=== PATIENT | male | born 1960 | race Caucasian/White ===

== ENCOUNTER 2022-10-16 13:57 | Emergency (ER) | payer OTHER, SELFPAY ==
[2022-10-16 14:01] VITALS: BP 167/104; PULSE 78; RESP 14; TEMP 36.6; O2SAT 96
[2022-10-16 14:25] VITALS: BMI 28.0
--- NOTE | 2022-10-16 14:31 | ED.VIS.LOWEX ---
HPI History of Present Illness Chief Complaint: Lower Extremity Injury Detail of Chief Complaint: Injury to right lower extremity Informant: patient Narrative Narrative: Patient presents to the emergency department after a fall off of a ladder was about 10 feet up on an overhang. Patient had some sort of a large saw when he was trying to hang and when he fell this saw hit his right lower extremity. Patient denies striking his head or loss of consciousness. He denies neck pain. Denies chest pain or abdominal pain. He was unable to bear weight on his right foot. Patient not on blood thinners. No significant medical history. PFSH PFSH Home Medications NK 10/16/22 [History Last Taken Unknown] Allergy/AdvReac Type Severity Reaction Status Date / Time Penicillins [PCN] Allergy Other Verified 10/16/22 14:00 Gadolinium-MRI Contrast AdvReac Nausea/Vom/ Verified 10/16/22 14:01 Medium Diarrhea [CONTRAST] Sulfa (Sulfonamide AdvReac Nausea/Vom/ Verified 10/16/22 14:01 Antibiotics) Diarrhea Surgical History (Updated 10/16/22 @ 14:28 by Tess Ramirez) History of appendectomy Social History Smoking Status: Never smoker ROS ROS ED Review of Systems ROS Unobtainable: other Constitutional Constitutional ED: Reports lethargy; Denies chills, fever(s), sweats or weight loss Eyes Eyes: Denies blurry vision, change in vision or diplopia ENT ENT ED: Denies rhinorrhea or sore throat Cardiovascular Cardiovascular: Denies chest pain, orthopnea or racing heartbeat Respiratory/Chest Respiratory/Chest: Denies cough, dyspnea, dyspnea on exertion, orthopnea or sputum Gastrointestinal Gastrointestinal: Denies abdominal pain, diarrhea, nausea or vomiting Genitourinary Genitourinary ED: Denies dysuria, hematuria or urinary frequency Musculoskeletal Musculoskeletal: Reports other Details: Right foot pain and right leg pain ; Denies arthralgias, back pain, myalgias or neck pain Integumentary Denies abscess, Abrasions or rash Neurologic Neurologic: Denies headache(s) or weakness Psychiatric Psychiatric: Denies anxiety, depression or suicidal thoughts Endocrine Endocrinology: Denies polydipsia, polyphagia or polyuria Hematologic/Lymphatic Hematologic/Lymphatic: Denies easy bleeding, easy bruising or lymphadenopathy Allergic/Immunologic Allergic/Immunologic ED: Denies mouth swelling, tongue swelling or urticaria EXAM Physical Exam Const Vital Signs: 10/16/22 14:01 Temperature 98 F Temperature Source Temporal Pulse Rate 78 Respiratory Rate 14 Blood Pressure 167/104 H Blood Pressure Mean 125 Pulse Ox 96 Oxygen Delivery Method Room Air Positive well nourished and well developed General Appearance ED: well developed and NAD HEENT Reports TM's clear and moist mucous membranes normocephalic and atraumatic; Negative for trauma or tenderness Tympanic Membrane ED: Yes TM's clear Eyes PERRL and EOMs intact bilaterally General Eye ED: Negative for pale conjunctiva or scleral icterus Neck no lymphadenopathy, supple and no JVD General: Negative for tenderness Chest Wall inspection of chest normal and palpation of chest normal Chest: Negative for tenderness Resp normal respiratory effort and clear to auscultation bilaterally Effort and Inspection: Negative for respiratory distress or pain with movement Auscultation: Negative for rhonchi, wheezes or diminished lung sounds Cardio regular rate, regular rhythm, S1 normal heart sound, S2 normal heart sound and no murmurs Peripheral Pulses: pulses 2+ throughout GI normal to inspection, nondistended, normoactive bowel sounds, soft to palpation, non-tender, non-distended and no masses Back/Spine no CVA tenderness and no thoracic nor lumbar tenderness Back/Spine Narrative: Patient has an abrasion to the right posterior ribs with no bony tenderness on exam. Extremity Extremity Narrative: Right lower extremity-patient has superficial abrasions to the anterior aspect of the right knee as well as tibia. He has some diffuse tenderness to palpation over the foot especially plantar midfoot. No obvious deformity. Neurovascular intact distally General Extremety ED: Negative for edema General Extremity: Negative for edema Neuro oriented x3, CN's II-XII intact bilaterally, no sensory deficits noted and gait normal Sensorium / Orientation: awake, alert, oriented to person, oriented to place and oriented to time Motor Exam: strength 5/5 throughout and strength abnormal Psych mental status grossly normal Skin no rashes or lesions noted and no wounds MDM MDM MDM Narrative Medical decision making narrative: Patient presents with an injury to his right lower extremity after fall off of the ladder. No other significant evidence of trauma. C-spine cleared clinically using Nexus criteria. Patient x-rays on my interpretation do not reveal any fractures. He will be given crutches for comfort. He will be given an Seng wrap for his foot. Patient will be referred to orthopedics for follow-up within the next 5 to 7 days. He is to use ibuprofen or Tylenol for discomfort. He is to ice and elevate the extremity. He was given a tetanus booster. Radiography Diagnostic Testing: Clinical Impression(s) from Imaging Studies Foot X-Ray 10/16/22 14:40 IMPRESSION: Normal x-ray examination of the foot. Electronically Signed: Mack Herrera MD at 15:07 EDT , Tibia/Fibula X-Ray 10/16/22 14:40 IMPRESSION: Normal x-ray examination of the tibia and fibula. Electronically Signed: Mack Herrera MD at 15:08 EDT , 2 view x-rays of the right tib-fib obtained interpreted by myself as no acute fractures. Official report from radiology pending. Three-view x-rays right foot obtained interpreted by myself as no acute fractures or dislocations. Official report from radiology pending. Radiologist agreed with my interpretation. Discharge Plan Triage Chief Complaint: Lower Extremity Injury ED Provider: Marisa Villanueva Dx/Rx/DC Orders Clinical Impression: Right foot sprain, Contusion of leg, right, Abrasion Instructions: Bruises (Contusions), ED Abrasion, ED Foot Sprain Prescriptions: No Action NK Primary Care Provider: SUNSHINE SOLANO Referrals: Sincere Rojas MD [Med Staff - Active Staff] - 5-7 Days Ford Olson MD [Med Staff - Active Staff] - 5-7 Days Disposition Disposition: Home, Self Care
--- NOTE | 2022-10-16 14:40 | RAD_ITS ---
STUDY: X-RAY - RIGHT TIBIA AND FIBULA REASON FOR EXAM: Male, 62 years old. Pain following a fall. TECHNIQUE: 3 view(s) of the tibia and fibula were obtained. COMPARISON: None. FINDINGS: Normal visualized tibia. Normal visualized fibula. The soft tissue structures are unremarkable. RAD/Tibia & Fibula 2 Views IMPRESSION: Normal x-ray examination of the tibia and fibula. Electronically Signed: Mack Herrera MD at 15:08 EDT ,
--- NOTE | 2022-10-16 14:40 | RAD_ITS ---
STUDY: X-RAY - RIGHT FOOT CLINICAL: Male, 62 years old. Pain following a fall. TECHNIQUE: 3 view(s) of the foot. COMPARISON: None. FINDINGS: Normal talus, calcaneus, and tarsal bones. Normal visualized subtalar, talonavicular, calcaneocuboid, tarsal and tarsometatarsal articulations. Normal metatarsi. Normal metatarsophalangeal joint of the great toe. Normal tibial and fibular sesamoid bones. Normal interphalangeal joint of the great toe. Normal phalanges of the great toe. Normal second through fifth metatarsophalangeal joints. Normal interphalangeal joints and phalanges of the lesser toes. The soft tissue structures are unremarkable. RAD/Foot min 3 Views IMPRESSION: Normal x-ray examination of the foot. Electronically Signed: Mack Herrera MD at 15:07 EDT ,
[2022-10-16] MEDS: Diphth,Pertuss(Acell),Tet Vac 0.5 ML Vial IM (14:45)
== END 2022-10-16 15:25 | disposition home or self-care (01) ==
LOC: ED 15:09
PROVIDERS: Emergency Provider Emergency Medicine; Visit Provider Emergency Medicine
DX: S80.811A Abrasion, right lower leg, initial encounter (principal); S80.11XA Contusion of right lower leg, initial encounter; W11.XXXA Fall on and from ladder, initial encounter; S93.601A Unspecified sprain of right foot, initial encounter; Z90.49 Acquired absence of other specified parts of digestive tract; W22.8XXA Striking against or struck by other objects, initial encounter
CPT/HCPCS: 73590; 73630; 90715; 99283

== ENCOUNTER → 2023-08-29 | Outpatient (CLI) | payer OTHER, SELFPAY ==
[2023-08-29 10:36] LABS: Hematocrit 41.5 % (40-54); Hemoglobin 14.6 g/dL (13.0-16.5); Mean Corp Hgb Conc 35.2 g/dL (32-36); Mean Corpuscular Hgb 32.2 pg (27.0-32.0); Mean Corpuscular Volume 91.6 fL (80-94); Mean Platelet Vol. 10.4 fl (6.2-12.0); Platelet Count 189 K/mm3 (150-450); RBC Distribution Width CV 11.9 % (11.6-14.6); RBC Distribution Width SD 39.9 fl (35.1-43.9); Red Blood Count 4.53 M/mm3 (4.6-6.2); White Blood Count 5.8 K/mm3 (4.4-11.0)
[2023-08-29 10:58] LABS: ALB/GLOB Ratio 1.2 RATIO (0.9-2.4); AST(SGOT) 21 U/L (15-37); Alanine Aminotransfer ALT/SGPT 46 U/L (16-61); Alkaline Phosphatase 69 U/L (45-117); Anion Gap 5 (5-15); BUN 16 mg/dL (7-18); BUN/Creat Ratio 16.8 RATIO (10-20); Chloride 107 mmol/L (98-107); Cholesterol 220 mg/dL (200); Creatinine, Serum 0.95 mg/dL (0.70-1.30); EST Glomerular Filtration Rate 85 mL/min (>60); Est Glom Filt Rate - Afr Amer 103 mL/min (>60); Globulin 3.2 g/dL (2.2-4.2); Glucose 103 mg/dL (74-106); High Density Lipoprotein 43 mg/dL; PSA,Total - Annual Screen 1.29 ng/mL (0.00-4.00); Potassium 3.8 mmol/L (3.5-5.1); Protein, Total 7.2 g/dL (6.4-8.2); Sodium Level 140 mmol/L (136-145); Triglycerides 102 mg/dL; Very Low Density Lipoprotein 20 mg/dL (5-40)
== END | disposition home or self-care (01) ==
PROVIDERS: PCP Family Medicine; Referring Provider Family Medicine; Visit Provider Family Medicine
DX: E29.1 Testicular hypofunction (principal); Z12.5 Encounter for screening for malignant neoplasm of prostate
CPT/HCPCS: 36415; 80053; 80061; 84153; 84403; 85027; G0103

== ENCOUNTER → 2023-12-22 | Outpatient (CLI) | payer OTHER, SELFPAY ==
[2023-12-22 08:32] LABS: Absolute Lymphocyte Count 2.94 X10^3/uL (0.83-4.51); Absolute Neutrophil Count 5.7 X10^3/uL (2.0-7.7); Basophil# 0.06 X10^3/uL; Basophil% 0.6 % (0-1); Eosinophil# 0.11 X10^3/uL; Eosinophils% 1.2 % (0-5); Hematocrit 41.3 % (40-54); Hemoglobin 14.2 g/dL (13.0-16.5); Lymphocyte # 2.94 X10^3/ul (0.83-4.51); Lymphocyte % 30.8 % (19-41); Mean Corp Hgb Conc 34.4 g/dL (32-36); Mean Corpuscular Hgb 31.4 pg (27.0-32.0); Mean Corpuscular Volume 91.4 fL (80-94); Mean Platelet Vol. 10.1 fl (6.2-12.0); Monocyte# 0.63 X10^3/uL; Monocyte% 6.6 % (0-10); NRBC Flagged by Analyzer 0 % (0-5); Neutrophil # 5.73 X10^3/uL (2.7-7.7); Platelet Count 209 K/mm3 (150-450); RBC Distribution Width CV 12.1 % (11.6-14.6); RBC Distribution Width SD 40.3 fl (35.1-43.9); Red Blood Count 4.52 M/mm3 (4.6-6.2); White Blood Count 9.6 K/mm3 (4.4-11.0)
[2023-12-22 08:54] LABS: Erythrocyte Sedimentation Rate 6 mm/hr (0-20)
[2023-12-22 10:29] LABS: Hemoglobin A1c 5.4 % (3.8-5.6)
[2023-12-22 10:46] LABS: ALB/GLOB Ratio 1.1 RATIO (0.9-2.4); AST(SGOT) 13 U/L (15-37); Alanine Aminotransfer ALT/SGPT 35 U/L (16-61); Albumin, Serum 3.6 g/dL (3.2-5.0); Alkaline Phosphatase 63 U/L (45-117); Anion Gap 5 (5-15); BUN 19 mg/dL (7-18); BUN/Creat Ratio 20.8 RATIO (10-20); CRP < 2.90 mg/L (0.0-3.0); Calcium,Total 8.9 mg/dL (8.5-10.1); Chloride 106 mmol/L (98-107); Cholesterol 183 mg/dL (200); Creatinine, Serum 0.92 mg/dL (0.70-1.30); EST Glomerular Filtration Rate 89 mL/min (>60); Est Glom Filt Rate - Afr Amer 107 mL/min (>60); Globulin 3.2 g/dL (2.2-4.2); Glucose 86 mg/dL (74-106); High Density Lipoprotein 59 mg/dL; Potassium 3.6 mmol/L (3.5-5.1); Protein, Total 6.8 g/dL (6.4-8.2); Rheumatoid Factor < 10.0 IU/mL (<15); Sodium Level 138 mmol/L (136-145); Triglycerides 62 mg/dL; Very Low Density Lipoprotein 12 mg/dL (5-40)
[2023-12-25 11:59] LABS: ANTINUCLEAR ANTIBODIES DIRECT Negative (Negative); CCP IgG Antibodies 4 units (0-19); Dilute Prothrombin Time (dPT) 35.2 sec (0.0-47.6); Dilute Russell Viper Venom 36.9 sec (0.0-47.0); Interpretation Comment: (.); PTT-LA 33.3 sec (0.0-43.5); Thrombin Time 19.6 sec (0.0-23.0); dPT Confirm Ratio 1.05 Ratio (0.00-1.34)
== END | disposition home or self-care (01) ==
LOC: LAB 07:19
PROVIDERS: PCP Nurse Practitioner; Referring Provider Nurse Practitioner; Visit Provider Nurse Practitioner
DX: Z00.00 Encounter for general adult medical examination without abnormal findings (principal); M25.50 Pain in unspecified joint
CPT/HCPCS: 36415; 80053; 80061; 83036; 85025; 85652; 86038; 86140; 86200; 86225; 86235; 86431

== ENCOUNTER → 2023-12-24 | Outpatient (CLI) | payer OTHER, SELFPAY ==
--- NOTE | 2023-12-24 13:43 | RAD_ITS ---
EXAM: XR LUMBOSACRAL SPINE, 2 OR 3 VIEWS CLINICAL INDICATION: lumbar back pain TECHNIQUE: Frontal and lateral views of the lumbar spine and sacrum. COMPARISON: No relevant prior studies available. FINDINGS: VERTEBRAE: There is bony neural foraminal narrowing at L3-4 and L4-5. Preserved vertebral body height. No fracture. No spondylolisthesis. Preservation of the normal lumbar lordosis. No significant facet arthropathy. DISC SPACES: There is disc space narrowing at L2-3 and L4-5. There are small anterior osteophytes. GASTROINTESTINAL TRACT: Unremarkable as visualized. Included bowel gas pattern is non-obstructive. RAD/Lumbar Spine 2 or 3 Views IMPRESSION: Multilevel degenerative change with disc space narrowing and bony neural foraminal narrowing. There are no acute osseous abnormalities. Electronically Signed: Tay Preciado MD at 0:00 EDT ,
== END | disposition home or self-care (01) ==
LOC: RAD 13:35
PROVIDERS: PCP Nurse Practitioner; Referring Provider Nurse Practitioner; Visit Provider Nurse Practitioner
DX: M54.50 Low back pain, unspecified (principal)
CPT/HCPCS: 72100

== ENCOUNTER 2024-01-08 17:30 | Outpatient (RCR) | payer OTHER, SELFPAY ==
--- NOTE | 2023-12-25 13:52 | HP.PTEVAL_ITS ---
Patient's Visit Information Visit Information Visit Information: JOI BURTON Jr. is a 63 year old M referred to Physical Therapy by BRYCE Berg with a diagnosis of lumbar back pain.. Date of Evaluation: 12/25/23 Physical Therapist: Guanako Chilel, DPT, OCS, CSCS Visit Plan Frequency: 2-3x /Week Duration: 4-6 Weeks Plan: 2-3x/week for 4-6 weeks as needed for... 1. instruction in and oprogression of HS adn quad stretch to HEP quickly, can rolout quad and HS prior 2. LB ROM(yoag stretches aggressively and to HEP 3. core NS stab strength to gym and HEP all with pics, please focuss on getting him I with aggressive ROM, stretch and core strength Be aggressive. Subjective Subjective: Back hurts and has joint space narrowing and impingement. Hurts center adn right. no pareasthesia or numbness tingling. 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 been moving a lot of concrete on property and it hurts more. Pain has been there intermittent for years. last month and a half is worse , gave himself injections and again 5 days ago. Can' take narcotics. Talked to PCP and got x ray and has degeneration. Surgery is not in his realm and he does not want it. Overall 100% better for two days with injection and 50% better this time. Goes to gym everyday avoids squatting and deadlifting. Does [employer] fitness machines, webb for benching. Some free weight flyes. No core strength. Willing to learn core and stretching. pain 6/10 at worst and he is used to it. Pain LBP: Pain Intensity (Out of 10): 2 Pain Intensity Range: 2 and 6 Objective Objective: Walks into PT without antalgia or problems, sits with flexed lumbar posture losing his kyphosis. Has some tenderness R lower lumbar paraspinals into upper glut. Lumbar AROM R SB and extension cause some R LBP. mod to max deficits in ext nd R SB, min deficits without pain L SB, mod deficits in flexion, no pain. HS are max tight at -35 90/90 test B, - slump and - SLR. quad are also tight although he can lie flat without pain today. reflexes 1/3 patella and achilles sensation LE WNL to gross light touch in B LE. strength LE 5/5 without pain, core strength shows weakness with hip flexion opposite rotation at hip and instability pain in LB R. Overall problems include tightness in HS and quads, limted lumbar ROM and core weakness in stability. these areas are missing in his current program. Goals Goal 1:: I appropriate flexibility, back ROM(yoga) and core strength program to limit future problems. Goal Time Frame: 4-6 Weeks Goal 2:: LBP 1/10 at worst and intermittent, 75% better Goal Time Frame: 4-6 Weeks Goal 3:: golf without limitations from LB Goal Time Frame: 4-6 Weeks Rehabilitation Potential Physical Therapy Diagnosis: stiffness, tightness and weakness effecting com fortable function. Rehabilitation Potential: Good Anticipated Interventions Patient/Client Instruction: Educate patient on: Condition and Plan of Care For the Purpose of:: To decrease pain, To increase ROM, To improve nutrient delivery to tissue and To improve muscle performance and motor function Therapeutic Exercise to Include: Strength training, Flexibilty training, Passive ROM and Active ROM For the Purpose of:: To decrease pain, To increase ROM and To improve nutrient delivery to tissue Manual Therapy Techniques to Include: Soft tissue mobilization For the Purpose of:: To increase ROM, To improve nutrient delivery to tissue and To improve muscle performance and motor function Text: Thank you for the opportunity to evaluate your patient. For Medicare and Medicare HMO plans, please review the plan of care and approve it. It will need to be FAXED BACK to us at [phone] for Medicare purposes. For Medicare only, by signing this I certify the plan of care. Please let me know if there are questions or concerns regarding this plan of care. Physician Signature: Date:
--- NOTE | 2024-02-21 12:22 | HP.PT.NRP ---
Patient Information Patient Information: JOI BURTON Jr. was seen in my office for initial evaluation on 12/25/23. The following Plan of Care was established for this patient: POC Established Initial Frequency: 2-3x /Week Initial Duration: 4-6 Weeks Anticipated Interventions Patient/Client Instruction: Educate patient on: Condition and Plan of Care For the Purpose of:: To decrease pain, To increase ROM, To improve nutrient delivery to tissue and To improve muscle performance and motor function Therapeutic Exercise to Include: Strength training, Flexibilty training, Passive ROM and Active ROM For the Purpose of:: To decrease pain, To increase ROM and To improve nutrient delivery to tissue Manual Therapy Techniques to Include: Soft tissue mobilization For the Purpose of:: To increase ROM, To improve nutrient delivery to tissue and To improve muscle performance and motor function Last Seen Last Seen: This patient was last seen in our office 01/03/24. Pertinent comments regarding their Physical therapy will appear below: Pt seen 4 visits of his POC and then cancelled and no showed the next couple without rescheduling. At this point, it has been over 6 weeks since attendance and I will discontinue. At this point I will be discontinuing this patient from physical therapy. I would be happy to see this patient again in the future if found appropriate by the physician. Thank you! Guanako Chilel, DPT, OCS, CSCS
== END 2024-01-15 19:00 | disposition home or self-care (01) ==
LOC: PT 17:30
PROVIDERS: PCP Nurse Practitioner; Visit Provider Nurse Practitioner
DX: M54.50 Low back pain, unspecified (principal)
CPT/HCPCS: 97110; 97140; 97161

== ENCOUNTER → 2024-04-08 | Outpatient (CLI) | payer OTHER, SELFPAY ==
--- NOTE | 2024-04-08 09:55 | RAD_ITS ---
STUDY: X-RAY - RIGHT SHOULDER REASON FOR EXAM: Male, 64 years old. Pain. TECHNIQUE: 4 views of the right shoulder. COMPARISON: None. FINDINGS: There is moderate glenohumeral arthrosis with joint space narrowing and marginal osteophyte formation. There is minimal acromioclavicular arthrosis. Normal acromion. Intact humeral head and visualized proximal humerus. The soft tissue structures are unremarkable. There is no demonstrated fracture. Normal visualized pulmonary apex. RAD/Shoulder min 2 Views IMPRESSION: Moderate glenohumeral arthrosis. Minimal acromioclavicular arthrosis. No demonstrated fracture. Electronically Signed: Tristian Weiss MD at 16:00 EST ,
== END | disposition home or self-care (01) ==
LOC: RAD 09:51
PROVIDERS: PCP Nurse Practitioner; Referring Provider Physician Assistant; Visit Provider Physician Assistant
DX: M25.511 Pain in right shoulder (principal)
CPT/HCPCS: 73030

== ENCOUNTER → 2024-06-26 | Outpatient (CLI) | payer OTHER, SELFPAY ==
[2024-06-26 16:46] LABS: Absolute Lymphocyte Count 2.24 X10^3/uL (0.83-4.51); Basophil# 0.09 X10^3/uL; Basophil% 0.9 % (0-1); Eosinophil# 0.43 X10^3/uL; Eosinophils% 4.5 % (0-5); Hematocrit 44.3 % (40-54); Hemoglobin 15.7 g/dL (13.0-16.5); Lymphocyte # 2.24 X10^3/ul (0.83-4.51); Lymphocyte % 23.3 % (19-41); Mean Corp Hgb Conc 35.4 g/dL (32-36); Mean Corpuscular Hgb 32.7 pg (27.0-32.0); Mean Corpuscular Volume 92.3 fL (80-94); Mean Platelet Vol. 10.1 fl (6.2-12.0); Monocyte# 0.71 X10^3/uL; Monocyte% 7.4 % (0-10); NRBC Flagged by Analyzer 0 % (0-5); Neutrophil # 6.01 X10^3/uL (2.7-7.7); Neutrophil % 62.6 % (47-70); Platelet Count 227 K/mm3 (150-450); White Blood Count 9.6 K/mm3 (4.4-11.0)
== END | disposition home or self-care (01) ==
LOC: BIMLAB 15:56
PROVIDERS: PCP Internal Medicine; Referring Provider Internal Medicine; Visit Provider Internal Medicine
DX: E29.1 Testicular hypofunction (principal)
CPT/HCPCS: 36415; 85025

== ENCOUNTER → 2024-12-29 | Outpatient (CLI) | payer OTHER, SELFPAY ==
[2024-12-29 09:05] LABS: Hematocrit 44.6 % (40-54); Hemoglobin 16.1 g/dL (13.0-16.5); Immature Granulocytes Count 0.020 X10^3/uL (0.0-0.0); Mean Corp Hgb Conc 36.1 g/dL (32-36); Mean Corpuscular Volume 90.8 fL (80-94); Mean Platelet Vol. 10.1 fl (6.2-12.0); NRBC Flagged by Analyzer 0 % (0-5); Platelet Count 203 K/mm3 (150-450); RBC Distribution Width CV 12.2 % (11.6-14.6); RBC Distribution Width SD 40.6 fl (35.1-43.9); Red Blood Count 4.91 M/mm3 (4.6-6.2); White Blood Count 6.7 K/mm3 (4.4-11.0)
[2024-12-29 09:41] LABS: AST(SGOT) 28 U/L (<=37); Alanine Aminotransfer ALT/SGPT 32 U/L (<=46); Albumin, Serum 4.6 g/dL (3.4-4.8); Alkaline Phosphatase 79 U/L (40-129); Anion Gap 13 (5-15); BUN 14 mg/dL (4-19); BUN/Creat Ratio 12.7 RATIO (10-20); Calcium,Total 9.8 mg/dL (7.6-11.0); Carbon Dioxide 22.7 mmol/L (21.0-32.0); Chloride 104 mmol/L (98-108); Cholesterol 235 mg/dL (<=200); Globulin 2.9 g/dL (2.2-4.2); Glucose 105 mg/dL (70-99); Low Density Lipoprotein Calc. 156 mg/dL; PSA,Total - Annual Screen 1.45 ng/mL (0.02-4.00); Potassium 4.0 mmol/L (3.3-5.1); Triglycerides 133 mg/dL; Very Low Density Lipoprotein 27 mg/dL (5-40); cholesterol:hdl ratio screen 4.44
--- OUTSIDE RECORDS SUMMARY | 2024-12-29 10:34 | XMS RPT_ITS | CCD ---
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 Sunshine Damico Referring Unavailabl e Thomae, Dr. Kiki Chase Admitting Unavailable Thomae, Dr. Kiki Chase Attending Unavailable [place], Mrs. Sunshine Damioc Primary Care Unavailabl e MEZU, HELADIO DARLING Consulting Unavailable DHAVAL PAGE Attending Unavailable DHAVAL PAGE Admitting Unavailable Kinza Abreu MD Primary Care Provider RUSS, SUNSHINE Chiang Attending Unavailable RUSS, SUNSHINE Chiang Primary Care Unavailable KINZA ABREU Attending Unavailable KINZA ABREU Primary Care Unavailable SUNSHINE SOLANO Attending Unavailable SUNSHINE SOLANO Primary Care Unavailable RUSSSUNSHINE Referring Unavailable RUSSSUNSHINE Attending Unavailable RUSSSUNSHINE Primary Care Unavailable Julita Reyes MD Primary Care Provider ROBE JACKSON Attending Unavailable SELF Referring Unavailable JULITA REYES Primary Care Unavailable Gumaro Ordoñez Attending Provider [phone] Eric MENSAH, Dr. Schliling Primary Care Provider Dr. Julita Reyes MD Referring Provider Vijaya Barraza Primary Care Unavailable Vijaya Barraza Attending Unavailable Vijaya Barraza Referring Unavailable Shannono Vijaya Primary Care Unavailable Ferullo, Vijaya Attending Unavailable Ferullo, Vijaya Referring Unavailable Ferullo, Vijaya Primary Care Unavailable Gumaro Ordoñez Attending Unavailable Ferullo, Vijaya Referring Unavailable Brock Marrero Attending Unavailable Ferullo, Vijaya Referring Unavailable Ferullo, Vijaya Primary Care Unavailable Oleghe, Efewongbe Attending Unavailable Ferullo, Vijaya Referring Unavailable Ferullo, Vijaya Primary Care Unavailable Ferullo, Vijaya Attending Unavailable Ferullo, Vijyaa Primary Care Unavailable Gumaro Ordoñez Attending Unavailable Gumaro Ordoñez Referring Unavailable LillieBill tsai Referring Unavailable Oleghe, Efewongbe Primary Care Unavailable LillieHu tsaiin Attending Unavailable Oleghe, Efewongbe Primary Care Unavailable Oleghe, Efewongbe Attending Unavailable Oleghe, Efewongbe Referring Unavailable WayGumaro Espinosa Attending Unavailable Oleghe, Efewongbe Primary Care Unavailable Oleghe, Efewongbe Referring Unavailable Ferullo, Vijaya Primary Care Unavailable Kinza Terry Attending Unavailable Allergies Allergy Classification Reported Allergen(s) Allergy Type Date of Onset Reaction(s) Facility (9 sources) Penicillins; Translations: [PENICILLINS] Propensity to adverse reactions 3 Unknown [facility] (12 sources) Sulfonamides (Antibiotic); Translations: [SULFA (SULFONAMIDE ANTIBIOTICS)] Propensity to adverse reactions 3 Shortness of breath, Nausea And Vomiting, GI Upset [facility] Work Phone: (3 sources) Penicillins Allergy to substance 3 Other [facility] Comment on above: FAMILY HX (3 sources) Sulfonamides (Antibiotic) Propensity to adverse reactions 3 Nausea/Vom/[facility] (3 sources) Gadolinium-MRI Contrast Medium Propensity to adverse reactions 3 Nausea/Vom/[facility] Comment on above: DYE (9 sources) Iodinated Contrast Media; Translations: [IODINATED CONTRAST MEDIA] Propensity to adverse reactions 3 Other, Nausea And Vomiting, GI Upset, Other: See Comments [facility] (3 sources) Penicillins Drug Intolerance 3 [facility] (1 source) Penicillins Drug allergy (disorder) 5 [facility] (1 source) Sulfonamides (Antibiotic) Drug allergy (disorder) 5 [facility] (1 source) Gadolinium-MRI Contrast Medium Drug allergy (disorder) 5 [facility] Medications Current Medications Medication Drug Class(es) Dates Sig (Normalized) Sig (Original) ascorbic acid 1000 mg oral tablet (8 sources) Vitamin C Ascorbic Acid 1, 000 mg tablet Take 1,000 mg by mouth. Active cholecalciferol 0.01 mg oral tablet (8 sources) Vitamin D cholecalciferol (VITAMIN D3) 400 unit tab Take by mouth once daily. Active collagenase clostridium histolyticum 0.9 mg injection (2 sources) Start: 10-18-2022 End: 08-06-2023 Xiaflex injection Inject 0.58 mg as directed every 30 (thirty) days. 0 10/18/2022 08/06/2023 Discontinued (Med List Cleanup) dutasteride 0.5 mg oral capsule (12 sources) 5-alpha Reductase Inhibitor Start: 06-02-2022 End: 07-30-2024 take 1 capsule by mouth once daily Dutasteride 0.5 mg capsule Active 0.5 mg PO DAILY 90 July 30, 2024 4:53pm 120 actuat fluticasone propionate 0.22 mg/actuat metered dose inhaler (4 sources) Corticosteroid Start: 08-06-2023 End: 08-05-2024 take 1 puff(s) by mouth twice daily fluticasone (Flovent HFA) 220 mcg/actuation inhaler Indications: Mild persistent asthma without complication Inhale 1 puff 2 times a day. Rinse mouth with water after use to reduce aftertaste and incidence of candidiasis. Do not swallow. 12 g 11 08/06/2023 08/05/2024 Active Fluticasone Propionate 220 mcg/actuation HFA aerosol inhaler (2 sources) Start: 11-05-2024 Fluticasone Propionate 220 mcg/actuation HFA aerosol inhaler Active 1 NMA INHALATION TWICE A DAY 12 November 05, 2024 4:07pm Start: 12-21-2023 End: 11-05-2024 Fluticasone Propionate 220 m cg/actuation HFA aerosol inhaler Discontinued 1 NMA INHALATION TWICE A DAY 12 December 21, 2023 12:00am November 05, 2024 4:07pm magnesium amino acid chelate 133 mg oral tablet (8 sources) magnesium oxide- magnesium amino acid chelate (NH-[id number]-HYXFANN) 133 mg tablet Take 133 mg by mouth. Active omeprazole 20 mg delayed release oral capsule (10 sources) Proton Pump Inhibitor Start: 02-20-20 End: 07-31-19 take 1 capsule by mouth twice daily Omeprazole 20 mg capsule,delayed release(DR/EC) Active 20 mg PO TWICE A DAY 180 July 30, 2024 4:53pm Start: 11-07-2022 take 1 capsule by mo uth twice daily Omeprazole 20 MG Oral Capsule Delayed Release Take 1 capsule twice daily Quantity: 180 Refills: 3 Ordered: 07-Nov-2022 Kiki Montiel DO Start : 07-Nov-2022 Active take 1 tablet by ben th twice daily omeprazole OTC (PriLOSEC OTC) 20 mg EC tablet Take 1 tablet (20 mg) by mouth 2 times a day. Do not crush, chew, or split. 0 Active tadalafil 5 mg oral tablet (12 sources) Phosphodiesterase 5 Inhibitor Start: 04-27-2023 End: 07-30-2024 take 1 tablet by mouth once daily Tadalafil (Cialis) 5 mg tablet Active 5 mg PO DAILY 90 July 30, 2024 4:53pm Start: 06-06-2022 End: 03-30-2023 take 1 tablet by mouth once daily tadalafil (Cialis) 5 mg tablet Take 1 tablet (5 mg) by mouth once daily. 0 06/06/2022 03/30/2023 Discontinued (Reorder) 1 ml testosterone cypionate 200 mg/ml injection (19 sources) Androgen Start: 2024 End: 11-07-2024 inject 200 mg by intramuscular injection every other week Testosterone Cypionate (Depo-Testosterone) 200 mg/mL oil Active 200 mg IM every 2 weeks 10 November 07, 2024 11:17am Hypogonadism hypogonadism Start: 12-20-2023 End: 12-24-2023 inject 200 mg by intramuscular injection every other week Testosterone Cypionate 200 mg/mL kit Discontinued 200 mg IM every 2 weeks 05 14December 24, 2023 9:21am December 24, 2023 12:15pm Start: 08-02-2022 End: 08-05-2024 testosterone cypionate (Depo-Testosterone) 200 mg/mL injection Indications: Hypogonadism in male , Hypotestosteronemia Inject 1 mL (200 mg) into the muscle every 14 (fourteen) days. 6 mL 1 08/06/2023 08/05/2024 Active Verapamil (5 sources) Calcium Channel Juan Francisco Start: 06-09-2022 End: 08-06-2023 verapamil HCl (VERAPAMIL, BULK, MISC) APPLY TO THE AFFECTED AREA(S) NEEDED 0 06/09/2022 08/06/2023 Discontinued (Med List Cleanup) Start: 06-09-2022 verapamil HCl (VERAPAMIL, BULK, MISC) APPLY TO THE AFFECTED AREA(S) NEEDED 0 06/09/2022 Active Completed/Discontinued Medications Medication Drug Class(es) Dates Sig (Normalized) Sig (Original) 24 hr metFORMIN hydrochloride 500 mg extended release oral tablet (9 sources) Biguanide Start: 09-14-2022 End: 12-26-2024 take 1 tablet by mouth once daily Metformin 500 mg tablet extended release 24 hr Discontinued 500 mg PO DAILY 90 July 30, 2024 4:53pm December 26, 2024 2:04pm Start: 06-02-2022 take 1 tablet by ben th once daily metFORMIN XR (Glucophage-XR) 500 mg 24 hr tablet Take 1 tablet (500 mg) by mouth once daily. 0 06/02/2022 Active tamsulosin hydrochloride 0.4 mg oral capsule (2 sources) alpha-Adrenergic Juan Francisco Start: 02-01-2024 End: 04-08-2024 take 1 capsule by mouth at bedtime Tamsulosin 0.4 mg capsule Discontinued 0.4 mg PO AT BEDTIME 90 February 01, 2024 12:00am April 08, 2024 9:58am Problems Active Problems Problem Classification Problem Date Documented Da te Episodic/Chronic Administrative/social admission (1 source) First encounter by subject; Translations: [Persons encountering health services in other specified circumstances] 12-20-2023 Episodic Allergic reactions (2 sources) Allergy status to penicillin; Translations: [Allergy to penicillin] Onset: 3 11-08-2022 Episodic Asthma (4 sources) Uncomplicated mild persistent asthma; Translations: [Mild persistent asthma, uncomplicated] Onset: 4 08-06-2023 Chronic Esophageal disorders (5 sources) Gastro-esophageal reflux disease without esophagitis; Translations: [Gastroesophageal reflux disease without esophagitis] Onset: 3 Chronic Esophageal disorders (1 source) Esophagitis; Translations: [Esophagitis, unspecified] Episodic Hyperplasia of prostate (1 source) Benign prostatic hyperplasia; Translations: [Benign prostatic hyperplasia without lower urinary tract symptoms] 06-26-2024 Chronic Malaise and fatigue (4 sources) Chronic fatigue, unspecified; Translations: [Chronic fatigue, unspecified] Onset: 3 Chronic Osteoarthritis (1 source) Osteoarthritis of joint of right shoulder region; Translations: [Primary osteoarthritis, right shoulder] 05-06-2024 Chronic Other aftercare (1 source) jail (current) use of oral hypoglycemic drugs; Translations: [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 drugs] Onset: 3 Episodic Other aftercare (1 source) Long-term current use of oral hypoglycemic medication; Translations: [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 drugs] 11-08-2022 Episodic Other and unspecified benign neoplasm (1 source) Benign neoplasm of middle ear, nasal cavity and accessory sinuses; Translations: [Inverted papilloma of nasal cavity] Onset: 5 Episodic Other connective tissue disease (1 source) Impingement syndrome of shoulder region; Translations: [Impingement syndrome of right shoulder] 04-08-2024 Episodic Other endocrine disorders (5 sources) Testicular hypofunction; Translations: [Testicular hypofunction] Onset: 3 Chronic Other endocrine disorders (3 sources) Male hypogonadism; Translations: [Testicular hypofunction] 08-06-2023 Chronic Other endocrine disorders (1 source) Hypogonadism 01-22-2024 Chronic Other endocrine disorders (4 sources) Endocrine disorder, unspecified; Translations: [Endocrine disorder, unspecified] Onset: 3 Episodic Other endocrine disorders (2 sources) Hypotestosteronism; Translations: [Endocrine disorder, unspecified] 08-06-2023 Episodic Other gastrointestinal disorders (1 source) H/O: gastrointestinal disease; Translations: [Personal history of other diseases of the digestive system] 09-11-2022 Episodic Other injuries and conditions due to external causes (3 sources) Abrasion; Translations: [Other injury of unspecified body region, initial encounter] 10-16-2022 Episodic Other male genital disorders (1 source) Induration penis plastica; Translations: [Induration penis plastica] Onset: 3 Chronic Other male genital disorders (1 source) Male erectile dysfunction, unspecified; Translations: [Male erectile dysfunction, unspecified] Onset: 3 Chronic Other male genital disorders (1 source) Induratio penis plastica; Translations: [Induration penis plastica] 08-02-2022 Chronic Other male genital disorders (1 source) Disorder of male genital organs, unspecified; Translations: [Disorder of male genital organs, unspecified] Onset: 3 Episodic Other nervous system disorders (4 sources) Other chronic pain; Translations: [Other chronic pain] Onset: 3 Chronic Other non-traumatic joint disorders (1 source) Joint pain; Translations: [Pain in unspecified joint] 12-20-2023 Episodic Other non-traumatic joint disorders (1 source) Shoulder pain; Translations: [Pain in unspecified shoulder] 04-08-2024 Episodic Other screening for suspected conditions (not mental disorders or infectious disease) (14 sources) Patient encounter status; Translations: [Encounter for screening for malignant neoplasm of colon] Onset: 3 09-11-2022 Episodic Other skin disorders (1 source) Mass of nose; Translations: [Localized swelling, mass and lump, head] 11-09-2024 Episodic Other upper respiratory disease (1 source) Rhinitis medicamentosa; Translations: [Chronic rhinitis] 11-09-2024 Chronic Other upper respiratory disease (2 sources) Nasal congestion; Translations: [Nasal congestion] 11-05-2024 Episodic Other upper respiratory disease (1 source) Hypertrophy of nasal turbinates; Translations: [Hypertrophy of nasal turbinates] 11-09-2024 Episodic Other upper respiratory disease (1 source) Polyp of nasal cavity and/or nasal sinus; Translations: [Nasal polyp, unspecified] 06-26-2024 Episodic Other upper respiratory infections (2 sources) Chronic sinusitis; Translations: [Chronic sinusitis, unspecified] Onset: 5 11-05-2024 Chronic Residual codes; unclassified (2 sources) Family history of diseases of the skin and subcutaneous tissue; Translations: [Family history of diseases of the skin and subcutaneous tissue] Onset: 3 Episodic Spondylosis; intervertebral disc disorders; other back problems (1 source) Low back pain; Translations: [Lumbar back pain] 12-20-2023 Episodic Sprains and strains (3 sources) Sprain of foot; Translations: [Unspecified sprain of right foot, initial encounter] 10-16-2022 Episodic Superficial injury; contusion (3 sources) Contusion of lower limb; Translations: [Contusion of right lower leg, initial encounter] 10-16-2022 Episodic Unclassified (1 source) Gastro-esophageal reflux dis with esophagitis, without bleed; Translations: [Gastro-esophageal reflux dis with esophagitis, without bleed] Onset: 3 Unclassified (1 source) Penile induration Onset: 3 Unclassified (1 source) Low back pain, unspecified; Translations: [Low back pain, unspecified] Onset: 4 Past or Other Problems Problem Classification Problem Date Documented Da te Episodic/Chronic Abdominal pain (4 sources) Epigastric pain; Translations: [Epigastric pain] Onset: 09-11-2022 09-11-2022 Episodic Other gastrointestinal disorders (2 sources) Personal history of other diseases of the digestive system; Translations: [Personal history of other diseases of the digestive system] Onset: 09-11-2022 Episodic Other non-traumatic joint disorders (2 sources) Pain in right shoulder; Translations: [Right shoulder pain] Onset: 05-08-2024 04-08-2024 Episodic Other upper respiratory disease (2 sources) Nasal congestion; Translations: [Nasal congestion] Onset: 06-26-2024 Episodic Other upper respiratory disease (1 source) Nasal polyp, unspecified; Translations: [Nasal polyp, unspecified] Onset: 06-26-2024 Episodic Residual codes; unclassified (1 source) Family history of lupus erythematosus; Translations: [Family history of diseases of the skin and subcutaneous tissue] 08-02-2022 Episodic Unclassified (2 sources) Onset: 10-26-2022 10-26-2022 Results Test Name Value Interpretation Reference Range Facility Internal Medicine Office Vis meryl 12-26-2024 Internal Medicine Office Visit [facility] [address] [place] [address] [place] [address] OFFICE VISIT Date of Service: 12/26/24 MR#: [id number] Acct: [id number] Name: JOI MADRIGAL Jr. Rep #: [id number] : 1960 Provider: JANINE Arevalo Age/Sex: 64/M Location: [facility] Status: Signed Intake Vital Signs 06/26/24 14:48 12/26/24 14:05 Height 6 ft 6 ft Weight: 194 lb 203 lb BMI 26.3 27.5 BP 144/78 H 142/78 H Blood Pressure Location Rt brachial Lt brachial Position Sitting Sitting Respiration 16 18 Pulse 95 69 Pulse Source Monitor Monitor Temp 96.6 F L 98.3 F Temp Source Temporal Temporal Pulse Oximetry (%) 97 97 Oxygen Delivery Method room air room air Intake Visit Reasons: 6 M FU Chief Complaint: 6 M FU Is patient in pain?: No Allergies Penicillins (PCN) Allergy (Verified 12/26/24 14:02) Other Gadolinium-MRI Contrast Medium (CONTRAST) Adverse Reaction (Verified 12/26/24 14:02) Nausea/Vom/Diarrhea Sulfa (Sulfonamide Antibiotics) Adverse Reaction (Verified 12/26/24 14:02) Nausea/Vom/Diarrhea Medications ???Medication ???Instructions ???Recorded ???Confirmed ???Type testosterone cypionate 200 mg/mL 200 mg IM Q2W #1 ea 12/24/2312/26 Rx intramuscular kit fluticasone propionate 220 1 puff inhalation BID #12 grams 12/26/24 Rx mcg/actuation HFA aerosol inhaler dutasteride 0.5 mg capsule 0.5 mg PO DAILY #90 caps 12/26/24 12/26/24 Rx omeprazole 20 mg capsule,delayed 20 mg PO BID #180 caps 12/26/24 Rx release syringe with needle 3 mL 23 gauge #100 ea 12/26/24 12/26/24 Rx x 1 1/2 ([employer] Luer Lock Syringe with needle) tadalafil 5 mg tablet (Cialis) 5 mg PO DAILY #90 tabs 12/26/24 Rx testosterone cypionate 200 mg/mL 200 mg IM Q2W hypogonadism #10 mL 12/26/24 12/26/24 Rx intramuscular oil (Depo-Testosterone) Nurse's Note: pt requesting refills for testosterone and syringes for injection, omeprazole, tadalafil, and dutasteride. PFSH Medical History Hypogonadism in male Chronic nasal congestion Nasal polyp Primary osteoarthritis, right shoulder Allergies Surgical History Hx of LASIK H/O shoulder surgery History of penile implant H/O right knee surgery History of appendectomy Family History Father Myocardial infarction, Onset Age: 60 Heart disease Brother Myocardial infarction, Onset Age: 36 Heart disease Social History adopted: No household members: spouse current occupational status: retired leisure activities: other sexually active: Yes Smoking Status: Never smoker alcohol intake: current alcohol intake frequency: holidays/special occasions only substance use type: does not use diet: vegetarian what type of physical activity do you participate in: weight training seatbelt use: always do you feel safe at home: Yes HPI HPI Chief Complaint: 6 M FU Details: JOI MADRIGAL, is a 64 M who presents to the office today for 6 month f/u. He states that there is nothing that he needs to today. He states that he needs medication refills and that is it. He is a healthy 65 year old male without any significant PMH. He has some BPH history, some GERD, and some multiple joint pain. He states that he does check his BP regularly and states that it is always very good. He states that prior to coming he was drinking a Red Bull and thinks that may have done it. He states that he normally has no issues with his BP He is a huge caffeine person drinking coffee and Red Bull through the day He does see eye doctor annually He does see Dentist annually as well He had a colonoscopy about 2 years ago and states that it was completely clear. He does have nasal polyps and states that he recently tried to remove one himself and that he was unsuccessful in that it was not a a polyp. He has an appointment with ENT next week for f/u ROS Const Constitutional: No body ache, chills, excessive sweating, fatigue, fever(s), frequent falls, headache(s), snoring, weight change, sleep problems, abnormal sleep pattern or change in appetite Eyes Eyes: No blurry vision, change in vision, eye pain or Light sensitivity ENT ENT: No abnormal hearing, ear or mastoid pain, tinnitus, nasal congestion, headache(s), neck pain or sore throat Resp Respiratory: No cough, shortness of breath, snoring or wheezing Cardio Cardiology: No chest pain at rest, chest pain with exertion, excessive sweating, shortness of breath, dyspnea on exertion, lightheadedness, orthopnea or palpitations Gastro GI: No abdominal pain, change in bowel habits, constipation, cramp (more content not included)... [facility] 11-10-2024 [facility] Telephone (OTFGFL) JOI MADRIGAL ([id number]) 1960 M Date Time Provider Department 11/10/24 [facility] OT[facility] During your visit today, we recorded the following information about you: Allergies As of Date: 11/10/2024 Noted Allergy Reaction SULFA (SULFONAMIDE ANTIBIOTICS) 08/02/2022 8 - GI Upset 12 - Shortness of Breath IODINATED CONTRAST MEDIA 10/26/2022 8 - GI Upset 14 - Other: See Comments Comments: Vomiting PENICILLINS 08/02/2022 16 - Unknown Comments: Unsure Date Reviewed: 11/05/2024 Reviewed by: Shahana Hightower MA - Fully Assessed Prescriptions as of 11/10/2024 - Tadalafil (CIALIS) 5 mg tablet Take 5 mg by mouth once daily. - dutasteride (AVODART) 0.5 mg capsule Take 0.5 mg by mouth. - omeprazole (PRILOSEC) 20 mg capsule Take 20 mg by mouth. - testosterone cypionate (DEPO-TESTOSTERONE) 200 mg/mL injection INJECT 1ML (200MG) INTRAMUSCULARLY EVERY 2 WEEKS FOR HYPOGONADISM. DISCARD THE REMAINDER. - fluticasone (FLOVENT) 220 mcg/actuation inhaler USE 1 INHALATION ORALLY TWICE DAILY. RINSE MOUTH WITH WATER AFTER USE TO REDUCE AFTERTASTE AND INCIDENCE OF CANDIDIASIS. DO NOT SWALLOW. - Ascorbic Acid 1,000 mg tablet Take 1,000 mg by mouth. - cholecalciferol (VITAMIN D3) 400 unit tab Take by mouth once daily. - magnesium oxide-magnesium amino acid chelate ([id number]) 133 mg tablet Take 133 mg by mouth. Problem List As Of Date: 11/10/2024 (None) Encounter Status:Closed by LUCIUS JIMENEZ on 11/10/24 [facility] 11-07-2024 [facility] JOI MADRIGAL ([id number]) 1960 M Date Time Provider Department 11/07/24 [facility] During your visit today, we recorded the following information about you: Lucius Jimenez 11/07/2024 3:26 PM Signed November 07, 2024 3:24 PM Patient called to ask if I had any idea when his surgery could be scheduled He wants sooner than later.... Please advise Lucius Rutherford 11/10/2024 3:01 PM Signed November 10, 2024 3:00 PM Patient not happy with first available surgery date so he said he will try another provider Lucius Jimenez Allergies As of Date: 11/07/2024 Noted Allergy Reaction SULFA (SULFONAMIDE ANTIBIOTICS) 08/02/2022 8 - GI Upset 12 - Shortness of Breath IODINATED CONTRAST MEDIA 10/26/2022 8 - GI Upset 14 - Other: See Comments Comments: Vomiting PENICILLINS 08/02/2022 16 - Unknown Comments: Unsure Date Reviewed: 11/05/2024 Reviewed by: Shahana Hightower MA - Fully Assessed Reason for Visit: CNC surgery needs scheduled [Other] Prescriptions as of 11/10/2024 - Tadalafil (CIALIS) 5 mg tablet Take 5 mg by mouth once daily. - dutasteride (AVODART) 0.5 mg capsule Take 0.5 mg by mouth. - omeprazole (PRILOSEC) 20 mg capsule Take 20 mg by mouth. - testosterone cypionate (DEPO-TESTOSTERONE) 200 mg/mL injection INJECT 1ML (200MG) INTRAMUSCULARLY EVERY 2 WEEKS FOR HYPOGONADISM. DISCARD THE REMAINDER. - fluticasone (FLOVENT) 220 mcg/actuation inhaler USE 1 INHALATION ORALLY TWICE DAILY. RINSE MOUTH WITH WATER AFTER USE TO REDUCE AFTERTASTE AND INCIDENCE OF CANDIDIASIS. DO NOT SWALLOW. - Ascorbic Acid 1,000 mg tablet Take 1,000 mg by mouth. - cholecalciferol (VITAMIN D3) 400 unit tab Take by mouth once daily. - magnesium oxide-magnesium amino acid chelate ([id number]) 133 mg tablet Take 133 mg by mouth. Problem List As Of Date: 11/07/2024 (None) Encounter Status:[facility] Office Visit (OTFGFL ) MICHEALJOI VAZQUEZ ([id number]) 1960 M Date Time Provider Department 11/05/24 9:30 AM [facility] During your visit today, we recorded the following information about you: Pulse Respiration Blood pressure Weight 68/minute 16/minute 140/90 91.6 kg Height 1.854 m Robe Jackson DO 11/09/2024 10:29 PM Signed HPI: Joi is a 64 year old male who presents for evaluation of his sinuses and nose. 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 First sinus surgery was about 20 years ago, second surgery was 15 years ago. He believes he has a papilloma in left nasal cavity, prior ENT thought it was a polyp. He is struggling with breathing through his nose at night. He is using Afrin before bed but doesn't think his symptoms are related to rhinitis medicamentosa. He was offered a turbinate surgery but concerned about any packing or worsening of his nasal congestion after the surgery. Nasal congestion in the evening is stress provoking. He has tried oral antibiotics, nasal steroid sprays, nasal antihistamine spray, and nasal saline spray without improvement in his symptoms. No issues tolerating general anesthesia in the past. History reviewed. Current Outpatient Medications Medication Sig Dispense Refill Tadalafil (CIALIS) 5 mg tablet Take 5 mg by mouth once daily. dutasteride (AVODART) 0.5 mg capsule Take 0.5 mg by mouth. omeprazole (PRILOSEC) 20 mg capsule Take 20 mg by mouth. testosterone cypionate (DEPO-TESTOSTERONE) 200 mg/mL injection INJECT 1ML (200MG) INTRAMUSCULARLY EVERY 2 WEEKS FOR HYPOGONADISM. DISCARD THE REMAINDER. fluticasone (FLOVENT) 220 mcg/actuation inhaler USE 1 INHALATION ORALLY TWICE DAILY. RINSE MOUTH WITH WATER AFTER USE TO REDUCE AFTERTASTE AND INCIDENCE OF CANDIDIASIS. DO NOT SWALLOW. Ascorbic Acid 1,000 mg tablet Take 1,000 mg by mouth. cholecalciferol (VITAMIN D3) 400 unit tab Take by mouth once daily. magnesium oxide-magnesium amino acid chelate (NF-PABH-YFPDXKY) 133 mg tablet Take 133 mg by mouth. No current facility-administered medications for this visit. ALLERGIES Allergen Reactions Sulfa (Sulfonamide * GI Upset, Shortness of Breath Iodinated Contrast * GI Upset, Other: See Comments Vomiting Penicillins Unknown Unsure PAST SURGICAL HISTORY Procedure Laterality Date APPENDECTOMY HX KNEE SURGERY HX Right SHOULDER SURGERY HX Right SINUS SURGERY HX x2 Social History Tobacco Use Smoking status: Former Current packs/day: 0.00 Types: Cigarettes Quit date: 1979 Years since quittin.5 Smokeless tobacco: Never History reviewed. No pertinent family history. Physical Exam BP 140/90 Pulse 68 Resp 16 Ht 185.4 cm (6' 1) Wt 91.6 kg (202 lb) BMI 26.65 kg/m? General Appearance: Well-developed, well-nourished, no acute distress. Communication: Reasonable historian whose voice is normal. Psych/Mental Status: Normal affect. Head/Face: Normocephalic, without evidence of trauma. Facial muscles appear to be functioning normally. Eyes: Extraocular muscles appear intact. Salivary Glands: Parotid/Gregg's-norm al to palpation without evidence of duct abnormality. Submandibular/[place]' s-without evidence of palpable abnormality and no visible duct lesions. Ears: External ears appear normally formed. Tympanic membranes intact bilaterally. Nose: External nose is grossly normal. Septum midline. There is a thin layer of diffuse papillomatous appearing lesions along inner aspect of left nostril and extending onto nasal septum. Oral Cavity/Oropharynx: The mucous membranes of the pharynx, lips and tongue appear grossly normal. Dentition is unremarkable. Palate and floor of mouth are intact. Neck: There are no masses, adenopathy, or thyromegaly and the trachea is midline. Respiratory: no stridor or wheezing. Reviewed last PCP note ASSESSMENT/PLAN: 1. 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 Nasal congestion - ICD9: 478.19, ICD10: R09.81 3. Chronic sinusitis, unspecified location - ICD9: 473.9, ICD10: J32.9 - nasal endoscopy shows patent sinus cavities, no signs of inflammation, abnormal drainage, or scarring - nasal saline spray or irrigation and topical nasal steroid spray 4. Hypertrophy of inferior nasal turbinate - ICD9: 478.0, ICD10: J34.3 5. Rhinitis medicamentosa - ICD9: 472.0, E945.6, ICD10: J31.0, T48.5X5A - stop nasal decongestant use Discussed options including observation vs surgical intervention with removal of papillomatous appearing lesions in left nasal cavity and bilateral inferior turbinate reduction. Risks and benefits discussed. Will need to stop nasal decongestant spray use or will not get good results. Elect (more content not included)... Normal [facility] CBC W/Diff, Automatedon 02-05 16-2024 Absolute Lymph 2.24 X10 3/uL Normal 0.83-4.51 [facility] Comment on above: Performed By: #### L 100.0100 #### [facility] [address] [place], [address] Absolute Neut 6.0 X10 3/uL Normal 2.0-7.7 [facility] Comment on above: Performed By: #### L 100.0100 #### [facility] [address] [place], [address] Basophils/100 WBC (Bld) 0.9 % Normal 0-1 [facility] Comment on above: Performed By: #### L 100.0100 #### [facility] [address] [place], [address] Eosinophils/100 WBC (Bld) 4.5 % Normal 0-5 [facility] Comment on above: Performed By: #### L 100.0100 #### [facility] [address] [place], [address] Erythrocyte distribution width (RBC) [Ratio] 12.0 % Normal 11.6-14.6 [facility] Comment on above: Performed By: #### L 100.0100 #### [facility] [address] [place], [address] Hematocrit (Bld) [Volume fraction] 44.3 % Normal 40-54 [facility] Comment on above: Performed By: #### L 100.0100 #### [facility] [address] [place], [address] Hemoglobin (Bld) [Mass/Vol] 15.7 g/dL Normal 13.0-16.5 [facility] Comment on above: Performed By: #### L 100.0100 #### [facility] [address] [place], [address] IG% 1.300 High 0.0-0.9 [facility] Comment on above: Result Comment: IG% - Immature Granulocytes (promyelocytes, myelocytes and metamyelocytes) > 1% indicates that a LEFT SHIFT is Present. Performed By: #### L 100.0100 #### [facility] [address] [place], [address] Lymphocytes/100 WBC (Bld) 23.3 % Normal 19-41 [facility] Comment on above: Performed By: #### L 100.0100 #### [facility] [address] [place], [address] MCH (RBC) [Entitic mass] 32.7 pg High 27.0-32.0 [facility] Comment on above: Performed By: #### L 100.0100 #### [facility] [address] [place], [address] MCHC (RBC) [Mass/Vol] 35.4 g/dL Normal 32-36 [facility] Comment on above: Performed By: #### L 100.0100 #### [facility] [address] [place], [address] MCV (RBC) [Entitic vol] 92.3 fL Normal 80-94 [facility] Comment on above: Performed By: #### L 100.0100 #### [facility] [address] [place], [address] Monocytes/100 WBC (Bld) 7.4 % Normal 0-10 [facility] Comment on above: Performed By: #### L 100.0100 #### [facility] [address] [place], [address] Neutrophils/100 WBC (Bld) 62.6 % Normal 47-70 [facility] Comment on above: Performed By: #### L 100.0100 #### [facility] [address] [place], [address] Nucleated RBC (Bld) [#/Vol] 0 10*3/uL Normal 0-5 [facility] Comment on above: Performed By: #### L 100.0100 #### [facility] [address] [place], [address] Platelet mean volume (Bld) [Entitic vol] 10.1 fL Normal 6.2-12.0 [facility] Comment on above: Performed By: #### L 100.0100 #### [facility] [address] [place], [address] Platelets (Bld) [#/Vol] 227 10*3/uL Normal 150-450 [facility] Comment on above: Performed By: #### L 100.0100 #### [facility] [address] [place], [address] RBC (Bld) [#/Vol] 4.80 10*6/uL Normal 4.6-6.2 [facility] Comment on above: Performed By: #### L 100.0100 #### [facility] [address] [place], [address] RDW SD 41.0 fl Normal 35.1-43.9 [facility] Comment on above: Performed By: #### L 100.0100 #### [facility] [address] [place], [address] WBC (Bld) [#/Vol] 9.6 10*3/uL Normal 4.4-11.[address] [facility] Comment on above: Performed By: #### L 100.0100 #### [facility] [address] [place], [address] Internal Medicine Office Vis meryl 06-26-2024 Internal Medicine Office Visit [facility] [address] [place] [address] [place] [address] OFFICE VISIT Date of Service: 06/26/24 MR#: [id number] Acct: [id number] Name: JOI MADRIGAL Jr. Rep #: [id number] : 1960 Provider: Dr. Julita leyva MD Age/Sex: 64/M Location: [facility] Status: Signed Intake Vital Signs 02/15/24 14:12 05/06/24 09:17 06/26/24 14:48 Height 6 ft 6 ft 6 ft Weight: 194 lb BMI 26.3 BP 144/78 H Blood Pressure Location Rt brachial Position Sitting Respiration 16 Pulse 95 Pulse Source Monitor Temp 96.6 F L Temp Source Temporal Pulse Oximetry (%) 97 Oxygen Delivery Method room air Intake Visit Reasons: RE EST - EMS PT Chief Complaint: Establish/transfer care. 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 Accompanied by: Is patient in pain?: No Allergies Penicillins (PCN) Allergy (Verified 06/26/24 14:46) Other Gadolinium-MRI Contrast Medium (CONTRAST) Adverse Reaction (Verified 06/26/24 14:46) Nausea/Vom/Diarrhea Sulfa (Sulfonamide Antibiotics) Adverse Reaction (Verified 06/26/24 14:46) Nausea/Vom/Diarrhea Medications ???Medication ???Instructions ???Recorded ???Confirmed ???Type fluticasone propionate 220 1 puff inhalation BID #12 grams 06/26/24 Rx mcg/actuation HFA aerosol inhaler syringe with needle 3 mL 23 gauge #100 ea 12/24/23 06/26/24 Rx x 1 1/2 ([employer] Luer Lock Syringe with needle) testosterone cypionate 200 mg/mL 200 mg IM Q2W #1 ea 12/24/2306/26 Rx intramuscular kit testosterone cypionate 200 mg/mL 200 mg IM Q2W hypogonadism #10 mL 04/23/24 06/26/24 Rx intramuscular oil (Depo-Testosterone) dutasteride 0.5 mg capsule 0.5 mg PO DAILY #90 caps 05/27/24 06/26/24 Rx metformin 500 mg tablet,extended 500 mg PO DAILY #90 tabs 05/27/24 06/26/24 Rx release 24 hr tadalafil 5 mg tablet (Cialis) 5 mg PO DAILY #90 tabs 05/27/24 Rx omeprazole 20 mg capsule,delayed 20 mg PO BID #180 caps 06/02/24 Rx release Have you fallen in the past year?: No Nurse's Note: bph PFSH Medical History (Updated 06/26/24 @ 20:[address] Julita Reyes MD) Hypogonadism in male Chronic nasal congestion Nasal polyp Primary osteoarthritis, right shoulder Allergies Surgical History Hx of LASIK H/O shoulder surgery History of penile implant H/O right knee surgery History of appendectomy Family History Father Myocardial infarction, Onset Age: 60 Heart disease Brother Myocardial infarction, Onset Age: 36 Heart disease Social History adopted: No household members: spouse current occupational status: retired leisure activities: other sexually active: Yes Smoking Status: Never smoker alcohol intake: current alcohol intake frequency: holidays/special occasions only substance use type: does not use diet: vegetarian what type of physical activity do you participate in: weight training seatbelt use: always do you feel safe at home: Yes HPI HPI Chief Complaint: Establish/transfer care. Nasal polyp Details: JOI MADRIGAL, is a 64 M who presents to the office today establish/transfer care. Had previously established with nurse practitioner in this practice. He reports a chronic history of nasal polyps. Chronic nasal congestion as well. Has been using Afrin every day. Tried to discontinue/try oral steroids but did not find this helpful for nasal congestion. Would like to see an ENT/get the nasal polyp addressed. Also reports a history of BPH, currently on dutasteride. Had attempted Flomax but discontinued due to intolerable side effects. Main concern is poor stream and daytime frequency. No significant nocturia. No episodes of blood in his urine. To intervention no surgery at this time. He also states that he recently started taking saw palmetto. Other chronic medical conditions are stable. ROS Const Constitutional: No body ache, excessive sweating, fatigue, fever(s), frequent falls, headache(s), snoring, weakness, weight change, sleep problems or change in appetite Eyes Eyes: No blurry vision, change in vision, dry eyes, bulging eyes, floaters, visual disturbances, eye pain or Light sensitivity ENT ENT: Positive for nasal congestion and nasal obstruction; No abnormal hearing, ear or mastoid pain, tinnitus, balance problems, headache(s), hoarseness, lip swelling, neck pain, sore throat or throat swelling Resp Respiratory: No cough, shortness of breath, snoring or wheezing Cardio Cardiology: No chest pain at rest, chest pain with exertion, excessive sweating, shortness of breath, dyspnea on exertion, lightheadedness, orthopnea or palpitations Gastro GI: No abd (more content not included)... Normal [facility] Orthopedic Visit Reporton Orthopedic Visit Report [facility] [place] [address] OFFICE VISIT Date of Service: 05/06/24 MR#: [id number] Acct: [id number] Name: JOI MADRIGAL JrHitesh Rep #: [id number] : 1960 Provider: Dr. Brock paige MD Age/Sex: 64/M Location: [facility] Status: Signed Intake Vital Signs 04/08/24 08:20 05/06/24 09:17 Height 6 ft 6 ft Weight: 203 lb 205 lb BMI 27.5 27.8 BP 128/72 H Blood Pressure Location Lt brachial Position Sitting Respiration 17 Pulse 81 Pulse Source Monitor Temp 98.2 F Temp Source Temporal Pulse Oximetry (%) 95 Oxygen Delivery Method room air Intake Visit Reasons: RIGHT SHOULDER Chief Complaint: RIGHT SHOULDER PAIN Is patient in pain?: Yes (right shoulder) Pain scale (1-10): 3 Allergies Penicillins (PCN) Allergy (Verified 05/06/24 09:20) Other Gadolinium-MRI Contrast Medium (CONTRAST) Adverse Reaction (Verified 05/06/24 09:20) Nausea/Vom/Diarrhea Sulfa (Sulfonamide Antibiotics) Adverse Reaction (Verified 05/06/24 09:20) Nausea/Vom/Diarrhea Medications ???Medication ???Instructions ???Recorded ???Confirmed ???Type dutasteride 0.5 mg capsule 0.5 mg PO DAILY #90 caps 12/20/23 05/06/24 Rx metformin 500 mg tablet,extended 500 mg PO DAILY #90 tabs 12/20/23 05/06/24 Rx release 24 hr omeprazole 20 mg capsule,delayed 20 mg PO BID 12/20/23 05/06/24 History release tadalafil 5 mg tablet (Cialis) 5 mg PO DAILY #90 tabs 12/20/23 05/06/24 Rx fluticasone propionate 220 1 puff inhalation BID #12 grams 12/21/23 05/06/24 Rx mcg/actuation HFA aerosol inhaler syringe with needle 3 mL 23 gauge #100 ea 12/24/23 05/06/24 Rx x 1 1/2 ([employer] Luer Lock Syringe with needle) testosterone cypionate 200 mg/mL 200 mg IM Q2W #1 ea 12/24/23 05/06/24 Rx intramuscular kit testosterone cypionate 200 mg/mL 200 mg IM Q2W hypogonadism #10 mL 04/23/24 05/06/24 Rx intramuscular oil (Depo-Testosterone) PFSH Medical History (Updated 05/06/24 @ 09:25 by Brock Marrero MD) Primary osteoarthritis, right shoulder Allergies Surgical History Hx of LASIK H/O shoulder surgery History of penile implant H/O right knee surgery History of appendectomy Family History Father Myocardial infarction, Onset Age: 60 Heart disease Brother Myocardial infarction, Onset Age: 36 Heart disease Social History adopted: No household members: spouse current occupational status: retired leisure activities: other sexually active: Yes Smoking Status: Never smoker alcohol intake: current alcohol intake frequency: holidays/special occasions only substance use type: does not use diet: vegetarian what type of physical activity do you participate in: weight training seatbelt use: always do you feel safe at home: Yes HPI RIGHT SHOULDER Details: This documentation accurately reflects the service provided and the decisions made by me, Dr. Brock Marrero MD 05/06/24 0917. Part of today???s visit was documented by [ ], acting as scribe. 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 had surgery 15 years ago. worse with reaching. pain anteriorly. no numbness or tingling. worse with reaching anteriorly. popping. pain all the time. worked in [employer]. 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 interested in a cortisone injection. Ortho Exam Right Shoulder Skin/Wound: Yes CDI, No ecchymosis, No erythema and No swelling Testing: Positive Hawkin's, Neer's, Speed's, TTP Biceps, empty can and belly press normal; Negative TTP AC Joint, Drop Arm, cross arm or scapular winging SHOULDER: normal motor and sens to ax nerve, and MRU and AIN/PIN active FE 100, passive 140. er 35. mild crepitus. FE strength 4+, ER 5 Office Procedures Ortho Injections Injections Yes Subacromial Injection Right Is this a patient provided medication?: No Details: Obtained consent for injection. Under sterile conditions, injected the patients right shoulder subacromial with 2cc Kenalog 4cc Bupivacaine. The patient tolerated the injection well without any noted complication. Patient should call our office if redness develops, pain worsens or if they have any concerns. Office Meds Kenalog 40 mg/mL suspension for injection Performing Provider: Brock Marrero MD Performing Location: [facility] Administered by: Brock Marrero MD on 05/06/24 09:51 Dose Route Admin Location Dispensed Lot Number Expiration Date NDC Man ufacturer 80 mg intra-articular right subacromial 2 mL [id number] 09/11/25 2663-3116-53 [facility] (more content not included)... Normal [facility] Internal Medicine Office Vis itocarson 04-08-2024 Internal Medicine Office Visit [facility] [address] [place] [address] [place] [address] OFFICE VISIT Date of Service: 04/08/24 MR#: [id number] Acct: [id number] Name: JOI MADRIGAL Jr. Rep #: [id number] : 1960 Provider: JANINE Arevalo Age/Sex: 64/M Location: [facility] Status: Signed Intake Vital Signs 02/15/24 14:12 04/08/24 08:20 Height 6 ft 6 ft Weight: 202 lb 203 lb BMI 27.3 27.5 BP 126/76 H 128/72 H Blood Pressure Location Lt brachial Lt brachial Position Sitting Sitting Respiration 16 17 Pulse 70 81 Pulse Source Monitor Monitor Temp 97.8 F 98.2 F Temp Source Temporal Temporal Pulse Oximetry (%) 98 95 Oxygen Delivery Method room air room air Intake Visit Reasons: RIGHT SHOULDER PAIN Chief Complaint: RIGHT SHOULDER PAIN Is patient in pain?: Yes (3 right shoulder (when resting) ) Allergies Penicillins (PCN) Allergy (Verified 04/08/24 08:55) Other Gadolinium-MRI Contrast Medium (CONTRAST) Adverse Reaction (Verified 04/08/24 08:55) Nausea/Vom/Diarrhea Sulfa (Sulfonamide Antibiotics) Adverse Reaction (Verified 04/08/24 08:55) Nausea/Vom/Diarrhea Medications ???Medication ???Instructions ???Recorded ???Confirmed ???Type dutasteride 0.5 mg capsule 0.5 mg PO DAILY #90 caps 12/20/23 04/08/24 Rx metformin 500 mg tablet,extended 500 mg PO DAILY #90 tabs 12/20/23 04/08/24 Rx release 24 hr omeprazole 20 mg capsule,delayed 20 mg PO BID 12/20/23 04/08/24 History release tadalafil 5 mg tablet (Cialis) 5 mg PO DAILY #90 tabs 12/20/23 04/08/24 Rx fluticasone propionate 220 1 puff inhalation BID #12 grams 12/21/23 04/08/24 Rx mcg/actuation HFA aerosol inhaler syringe with needle 3 mL 23 gauge #100 ea 12/24/23 04/08/24 Rx x 1 1/2 ([employer] Luer Lock Syringe with needle) testosterone cypionate 200 mg/mL 200 mg IM Q2W #1 ea 12/24/23 04/08/24 Rx intramuscular kit testosterone cypionate 200 mg/mL 200 mg IM Q2W hypogonadism #10 mL 01/22/24 04/08/24 Rx intramuscular oil (Depo-Testosterone) PFSH Medical History Allergies Surgical History Hx of LASIK H/O shoulder surgery History of penile implant H/O right knee surgery History of appendectomy Family History Father Myocardial infarction, Onset Age: 60 Heart disease Brother Myocardial infarction, Onset Age: 36 Heart disease Social History adopted: No household members: spouse current occupational status: retired leisure activities: other sexually active: Yes Smoking Status: Never smoker alcohol intake: current alcohol intake frequency: holidays/special occasions only substance use type: does not use diet: vegetarian what type of physical activity do you participate in: weight training seatbelt use: always do you feel safe at home: Yes HPI HPI Chief Complaint: RIGHT SHOULDER PAIN Details: JOI MADRIGAL, is a 64 M who presents to the office today for right shoulder pains. Patient had surgery in the shoulder 5 years ago. He states that he had arthroscopic surgery 5 years ago (supraspinatous and infraspinatous). He states that even after the surgery that his shoulder never improved. He remembers doing exercises on his own but did not do any formal physical therapy. He states that he has some weakness and discomfort with most physical activities. He notices this with certain movements (shows be abduction). He states that sometimes he will put ice on it and occasionally will take some Ibuprofen but nothing regular. He states that warm showers tend to help it. ROS Const Constitutional: No body ache, chills, excessive sweating, fatigue, fever(s), frequent falls, headache(s), snoring, weight change, sleep problems, abnormal sleep pattern or change in appetite Eyes Eyes: No blurry vision, change in vision, eye pain or Light sensitivity ENT ENT: No abnormal hearing, ear or mastoid pain, tinnitus, nasal congestion, headache(s), neck pain or sore throat Resp Respiratory: No cough, shortness of breath, snoring or wheezing Cardio Cardiology: No chest pain at rest, chest pain with exertion, excessive sweating, shortness of breath, dyspnea on exertion, lightheadedness, orthopnea or palpitations Gastro GI: No abdominal pain, change in bowel habits, constipation, cramping, diarrhea, nausea/dyspepsia or vomiting Genitourinary Male: No burning urination, painful urination, urinary incontinence or urinary frequency Musc Musculoskeletal: Positive for other (right shoulder pain 3 when resting. ); No abnormal gait, joint pain, back pain, limited range of motion, neck pain, numbness or tingling Skin Skin: No dry skin, redness, lesi (more content not included)... Normal [facility] Shoulder min 2 Viewson 04-08 Shoulder min 2 Views [facility] [address] [place] [address] Shoulder min 2 Views MR#: [id number] Acct: [id number] Name: JOI MADRIGAL Jr. Rep #: [id number] : 1960 M 64 From: Tristian Weiss MD PCP: BRYCE Berg Status: REG CLI Study: Shoulder min 2 Views Date of Exam: 04/08/24 Exam# [id number] Ordering Dr: Gumaro Gonzales [id number] STUDY: X-RAY - RIGHT SHOULDER REASON FOR EXAM: Male, 64 years old. Pain. TECHNIQUE: 4 views of the right shoulder. COMPARISON: None. FINDINGS: There is moderate glenohumeral arthrosis with joint space narrowing and marginal osteophyte formation. There is minimal acromioclavicular arthrosis. Normal acromion. Intact humeral head and visualized proximal humerus. The soft tissue structures are unremarkable. There is no demonstrated fracture. Normal visualized pulmonary apex. RAD/Shoulder min 2 Views IMPRESSION: Moderate glenohumeral arthrosis. Minimal acromioclavicular arthrosis. No demonstrated fracture. 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 Accompanied by: Self Is patient in pain?: No Allergies Penicillins (PCN) Allergy (Verified 02/15/24 14:09) Other Gadolinium-MRI Contrast Medium (CONTRAST) Adverse Reaction (Verified 02/15/24 14:09) Nausea/Vom/Diarrhea Sulfa (Sulfonamide Antibiotics) Adverse Reaction (Verified 02/15/24 14:09) Nausea/Vom/Diarrhea Medications ???Medication ???Instructions ???Recorded ???Confirmed ???Type dutasteride 0.5 mg capsule 0.5 mg PO DAILY #90 caps 12/20/23 02/15/24 Rx metformin 500 mg tablet,extended 500 mg PO DAILY #90 tabs 12/20/23 02/15/24 Rx release 24 hr omeprazole 20 mg capsule,delayed 20 mg PO BID 12/20/23 02/15/24 History release tadalafil 5 mg tablet (Cialis) 5 mg PO DAILY #90 tabs 12/20/23 02/15/24 Rx fluticasone propionate 220 1 puff inhalation BID #12 grams 12/21/23 02/15/24 Rx mcg/actuation HFA aerosol inhaler syringe with needle 3 mL 23 gauge #100 ea 12/24/23 02/15/24 Rx x 1 1/2 ([employer] Luer Lock Syringe with needle) testosterone cypionate 200 mg/mL 200 mg IM Q2W #1 ea 12/24/23 02/15/24 Rx intramuscular kit testosterone cypionate 200 mg/mL 200 mg IM Q2W hypogonadism #10 mL 01/22/24 02/15/24 Rx intramuscular oil (Depo-Testosterone) tamsulosin 0.4 mg capsule 0.4 mg PO QHS #7 caps 02/01/24 02/15/24 Rx tamsulosin 0.4 mg capsule 0.4 mg PO QHS #90 caps 02/01/24 02/15/24 Rx PFSH Medical History Allergies Surgical History Hx of LASIK H/O shoulder surgery History of penile implant H/O right knee surgery History of appendectomy Family History Father Myocardial infarction, Onset Age: 60 Heart disease Brother Myocardial infarction, Onset Age: 36 Heart disease Social History adopted: No household members: spouse current occupational status: retired leisure activities: other sexually active: Yes Smoking Status: Never smoker alcohol intake: current alcohol intake frequency: holidays/special occasions only substance use type: does not use diet: vegetarian what type of physical activity do you participate in: weight training seatbelt use: always do you feel safe at home: Yes HPI HPI Chief Complaint: med f/u Details: JOI MADRIGAL, is a 64 M who presents to the office today for follow-up regarding BPH. Patient was last seen in office on 02/01/2024, at that time he had reported increased nocturia which was bothersome and interferes with sleep. The decision was made to attempt Flomax which she had previously not tolerated secondary to hot flashes. In the meantime he held Cialis and initiated Flomax 0.4 mg nightly. He reports he did not tolerate Flomax due to inability to ejaculate. He stopped utilizing Flomax after 6 days. He has since resumed Cialis and dutasteride as previously prescribed. He reports symptoms have returned to baseline including nocturia. He continues to deny dysuria, hematuria, or other urinary symptoms. He continues to receive testosterone injections for hypogonadism. He has a history of a penile implant and no longer follows with urology. Recent PSA has been stable. ROS Const Constitutional: No body ache, chills, excessive sweating, fatigue, fever(s), frequent falls, headache(s), snoring, weakness or change in appetite Eyes Eyes: No blurry vision, change in vision, eye pain or Light sensitivity ENT ENT: No abnormal hearing, ear or mastoid pain, tinnitus, nasal congestion, headache(s), neck pain or sore throat Resp Respiratory: No cough, shortness of breath, snoring or wheezing Cardio Cardiology: No chest pain at rest, chest pain with exertion, excessive sweating, dyspnea on exertion, lightheadedness, orthopnea or palpitations Gastro GI: No abdominal pain, change in bowel habits, constipation, cramping, diarrhea, nausea/dyspepsia or vomiting Genitourinary Male: Positive for urinary frequency (more content not included)... Normal [facility] Office Vis iton 02-01-2024 Internal Medicine Office Visit [facility] [address] [place] [address] [place] [address] OFFICE VISIT Date of Service: 02/01/24 MR#: [id number] Acct: [id number] Name: JOI MADRIGAL JrHitesh Rep #: [id number] : 1960 Provider: BRYCE rockwell Age/Sex: 64/M Location: [facility] [place] Status: Signed Intake Vital Signs 12/20/23 13:22 01/21/24 12:28 02/01/24 09:11 Height 6 ft 6 ft 6 ft Weight: 198 lb 203 lb BMI 26.8 27.5 BP 130/82 H 126/82 H Blood Pressure Location Lt brachial Lt brachial Position Sitting Sitting Respiration 17 14 Pulse 95 67 Pulse Source Monitor Monitor Temp 98.4 F 97.2 F L Temp Source Temporal Temporal Pulse Oximetry (%) 95 97 Oxygen Delivery Method room air room air Intake Visit Reasons: BPH FOLLOW UP 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 Is patient in pain?: No Allergies Penicillins (PCN) Allergy (Verified 02/01/24 09:06) Other Gadolinium-MRI Contrast Medium (CONTRAST) Adverse Reaction (Verified 02/01/24 09:10) Nausea/Vom/Diarrhea Sulfa (Sulfonamide Antibiotics) Adverse Reaction (Verified 02/01/24 09:06) Nausea/Vom/Diarrhea Medications ???Medication ???Instructions ???Recorded ???Confirmed ???Type dutasteride 0.5 mg capsule 0.5 mg PO DAILY #90 caps 12/20/23 02/01/24 Rx metformin 500 mg tablet,extended 500 mg PO DAILY #90 tabs 12/20/23 02/01/24 Rx release 24 hr omeprazole 20 mg capsule,delayed 20 mg PO BID 12/20/23 02/01/24 History release tadalafil 5 mg tablet (Cialis) 5 mg PO DAILY #90 tabs 12/20/23 02/01/24 Rx fluticasone propionate 220 1 puff inhalation BID #12 grams 12/21/23 02/01/24 Rx mcg/actuation HFA aerosol inhaler syringe with needle 3 mL 23 gauge #100 ea 12/24/23 02/01/24 Rx x 1 1/2 ([employer] Luer Lock Syringe with needle) testosterone cypionate 200 mg/mL 200 mg IM Q2W #1 ea 12/24/23 02/01/24 Rx intramuscular kit testosterone cypionate 200 mg/mL 200 mg IM Q2W hypogonadism #10 mL 01/22/24 02/01/24 Rx intramuscular oil (Depo-Testosterone) tamsulosin 0.4 mg capsule 0.4 mg PO QHS #7 caps 02/01/24 02/01/24 Rx tamsulosin 0.4 mg capsule 0.4 mg PO QHS #90 caps 02/01/24 02/01/24 Rx Nurse's Note: Here to discuss BPH. States that he doesn't see a urologist. PFSH Medical History Allergies Surgical History Hx of LASIK H/O shoulder surgery History of penile implant H/O right knee surgery History of appendectomy Family History Father Myocardial infarction, Onset Age: 60 Heart disease Brother Myocardial infarction, Onset Age: 36 Heart disease Social History adopted: No household members: spouse current occupational status: retired leisure activities: other sexually active: Yes Smoking Status: Never smoker alcohol intake: current alcohol intake frequency: holidays/special occasions only substance use type: does not use diet: vegetarian what type of physical activity do you participate in: weight training seatbelt use: always do you feel safe at home: Yes HPI HPI 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 He has a pmh of BPH, reporting over the past 2 months he has had increased nocturia which is bothersome and interferes with sleep. He also experiences increased urinary frequency during the day. He denies dysuria, changes in bowel habits, hematuria, or other urinary sx. Currently receiving testosterone injections for hypogonadism. On dutasteride for hair loss management and cilias for sx management. Recent PSA stable. No history of prostate CA, history of penile implant. ROS Const Constitutional: No body ache, chills, excessive sweating, fatigue, fever(s), frequent falls, headache(s), snoring, weakness, sleep problems or change in appetite Eyes Eyes: No blurry vision, change in vision, eye pain or Light sensitivity ENT ENT: No abnormal hearing, ear or mastoid pain, tinnitus, nasal congestion, headache(s), neck pain or sore throat Resp Respiratory: No cough, shortness of breath, snoring or wheezing Cardio Cardiology: No chest pain at rest, chest pain with exertion, excessive sweating, shortness of breath, dyspnea on exertion, lightheadedness, orthopnea or palpitations Gastro GI: No abdominal pain, change in bowel habits, constipation, cramping, diarrhea, nausea/dyspepsia or vomiting Genitourinary Male: No burning urination, painful urination, urinary incontinence or urinary frequency Musc Musculoskeletal: No abnormal gait, joint pain, back pain, limited range of motion, neck pain or numbn (more content not included)... Normal [facility] Basophil percentageOrdered B y: Kinza Abreu on 08-29-2023 Bilirubin [Mass/Vol] 0.50 mg/dL 0.20-1.00 [facility] Comment on above: For patients on eltr ombopag therapy, use of Dimension [place] TBIL is not recommended. Chloride [Moles/Vol] 107 mmol/L 98-107 [facility] Cholesterol [Mass/Vol] 220 mg/dL <200 [facility] Comment on above: <200 mg/dL Desirable 200-240 mg/dL Borderline >240 mg/dL High Risk Glucose [Mass/Vol] 103 mg/dL 74-[address] [facility] Comment on above: Fasting Glucose resu lt from 100 to 125 mg/dL suggests IMPAIRED HOMEOSTASIS per A.D.A. criteria. Hemoglobin (Bld) [Mass/Vol] 14.6 g/dL 13.0-16.5 [facility] Potassium [Moles/Vol] 3.8 mmol/L 3.5-5.1 [facility] Protein [Mass/Vol] 7.2 g/dL 6.4-8.[address] [facility] Sodium [Moles/Vol] 140 mmol/L 136-[address] [facility] Testosterone [Mass/Vol] 860.88 ng/dL [facility] Comment on above: CENTRAL 90% REFERENC E RANGES MALE AGE <50 197.44 - 669.58 ng/dL MALE AGE > or = 50 187.72 - 684.19 ng/dL FEMALE AGE <50 8.38 - 35.01 ng/dL FEMALE AGE > or = 50 <7.00 - 35.92 ng/dL Effective as of 12/07/20 Triglyceride [Mass/Vol] 102 mg/dL <199 [facility] Comment on above: The drugs N-Acetylcy steine and Metamizole may falsely depress this assay.Serum Triglycerides Reference Interval Normal <150 mg/dL Borderline high 150 - 199 mg/dL High 200 - 499 mg/dL Very High > or = 500 mg/dL WBC (Bld) [#/Vol] 5.8 10*3/uL 4.4-11.[address] [facility] Determination of erythrocyte mean corpuscular volume (MCV)Ordered By: Kinza Abreu on 08-29-2023 MCV (RBC) [Entitic vol] 91.6 fL 80-94 [facility] Erythrocyte distribution wid th ratioOrdered By: Kinza Abreu on 08-29-2023 Erythrocyte distribution width (RBC) [Ratio] 11.9 % 11.6-14.6 [facility] Erythrocyte distribution wid th standard deviationOrdered By: Kinzalavon Abreu on 08-29-2023 Erythrocyte distribution width (RBC) [Entitic vol] 39.9 fL 35.1-43.9 [facility] Hematocrit Auto (Bld) [Volum e fraction]Ordered By: Kinzalavon Abreu on 08-29-2023 Hematocrit (Bld) [Volume fraction] 41.5 % 40-54 [facility] Laboratory - Chemistry and C hemistry - challengeOrdered By: Kiznalavon Abreu on 08-29-2023 Albumin/Globulin [Mass ratio] 1.2 {ratio} 0.9-2.4 [facility] ALP [Catalytic activity/Vol] 69 U/L 45-117 [facility] ALT [Catalytic activity/Vol] 46 U/L 16-61 [facility] Cholesterol in HDL [Mass/Vol] 43 mg/dL >40 [facility] Comment on above: The drugs N-Acetylcy steine and Metamizole may falsely depress this assay. Reference Range HDL <40 mg/dL Low HDL Cholesterol HDL >or= 60 mg/dL High HDL Cholesterol Cholesterol in LDL [Mass/Vol] 157 mg/dL 0-130 [facility] CO2 [Moles/Vol] 28.0 mmol/L 21.0-32.0 [facility] Globulin (S) [Mass/Vol] 3.2 g/dL 2.2-4.2 [facility] Urea nitrogen/Creatinine [Mass ratio] 16.8 mg/mg 10-20 [facility] - Hematology and Cell countsOrdered By: Kinzalavon Abreu on 08-29-2023 MCH (RBC) [Entitic mass] 32.2 pg 27.0-32.0 [facility] MCHC (RBC) [Mass/Vol] 35.2 g/dL 32-36 [facility] Platelet mean volume (Bld) [Entitic vol] 10.4 fL 6.2-12.0 [facility] Platelets (Bld) [#/Vol] 189 10*3/uL 150-450 [facility] No Panel InformationOrdered By: Kinza Abreu on 08-29-2023 Estimated GFR (MDRD) Amer 103 mL/min >60 [facility] Comment on above: GFR Calc Estimated GFR (MDRD) Non-Af Amer 85 mL/min >60 [facility] Comment on above: Non- GFR Calc Prostate Specific Antigen Screen 1.29 ng/mL 0.00-4.00 [facility] Comment on above: This test was perfor med using the TPSA assay method for the[employer] chemistry system. Values obtained with differentassay methods cannot be used interchangably.When changing PSA assays in the course of monitoring apatient, additional sequential testing should be carriedout to confirm baseline values. VLDL Cholesterol 20 mg/dL 5-40 [facility] RBC Auto (Bld) [#/Vol]Ordere d By: Kinza Abreu on 08-29-2023 RBC (Bld) [#/Vol] 4.53 10*6/uL 4.6-6.2 [facility] Serum or plasma calcium homero urement (mass/volume)Ordered By: Kinza Abreu on 08-29-2023 Calcium [Mass/Vol] 9.0 mg/dL 8.5-10.[address] [facility] Serum or plasma creatinine m easurement (mass/volume)Ordered By: Kinza Abreu on 08-29-2023 Creatinine [Mass/Vol] 0.95 mg/dL 0.70-1.30 [facility] Comment on above: The validity of the calculated GFR & GFRAA in patients over 70 years has not been determined. Clinical correlation is essential. Serum or plasma urea nitroge n measurement (mass/volume)Ordered By: Kinza Abreu on 08-29-2023 Urea nitrogen [Mass/Vol] 16 mg/dL 7-18 [facility] Thin prep Papanicolaou smear with manual screeningOrdered By: Kinza Abreu on 08-29-2023 Thin prep Papanicolaou smear with manual screening 4.0 g/dL 3.2-5.0 [facility] Thin prep Papanicolaou smear with manual screening 21 U/L 15-37 [facility] Thin prep Papanicolaou smear with manual screening 09-25 [facility] CBC W/O DIFFon 03-07-2023 Erythrocyte distribution width (RBC) [Ratio] 12.6 % Normal [facility] Comment on above: Order Comment: Relea se to patient->Immediate Performed By: #### L [id number] ####[address] HEMATOCRIT BLOOD Normal 39.0-51.5 [facility] Comment on above: Order Comment: Relea se to patient->Immediate Performed By: #### L [id number] ####[place] [id number] [facility] HEMATOCRIT BLOOD 42.1 Normal [facility] Comment on above: Order Comment: Relea se to patient->Immediate Performed By: #### L [id number] ####[place] [id number] [facility] HEMOGLOBIN Normal 13.1-17.6 [facility] Comment on above: Order Comment: Relea se to patient->Immediate Performed By: #### L [id number] ####[place] [id number] [facility] Hemoglobin (Bld) [Mass/Vol] 14.6 g/dL Normal [facility] Comment on above: Order Comment: Relea se to patient->Immediate Performed By: #### L [id number] ####[place] [id number] [facility] MCH Normal 28.4-33.4 [facility] Comment on above: Order Comment: Relea se to patient->Immediate Performed By: #### L [id number] ####[address] [address] [facility] MCH (RBC) [Entitic mass] 32.3 pg Normal [facility] Comment on above: Order Comment: Relea se to patient->Immediate Performed By: #### L [id number] ####[address] [address] [facility] MCHC Normal 31.1-37.0 [facility] Comment on above: Order Comment: Relea se to patient->Immediate Performed By: #### L [id number] ####[address] MCHC (RBC) [Mass/Vol] 34.8 g/dL Normal [facility] Comment on above: Order Comment: Relea se to patient->Immediate Performed By: #### L [id number] ####[address] MCV Normal 85.0-99.0 [facility] Comment on above: Order Comment: Relea se to patient->Immediate Performed By: #### L [id number] ####[address] MCV (RBC) [Entitic vol] 92.7 fL Normal [facility] Comment on above: Order Comment: Relea se to patient->Immediate Performed By: #### L [id number] ####[address] PLATELET COUNT Normal 154-393 [facility] Comment on above: Order Comment: Relea se to patient->Immediate Performed By: #### L [id number] ####[address] Platelets (Bld) [#/Vol] 178 10*3/uL Normal [facility] Comment on above: Order Comment: Relea se to patient->Immediate Performed By: #### L [id number] ####[address] RBC (Bld) [#/Vol] 4.54 10*6/uL Normal [facility] Comment on above: Order Comment: Relea se to patient->Immediate Performed By: #### L [id number] ####[address] RDW Normal 11.7-15.2 [facility] Comment on above: Order Comment: Relea se to patient->Immediate Performed By: #### L [id number] ####[address] [place] [address] [facility] RED BLOOD CELL COUNT Normal 4.30-5.86 [facility] Comment on above: Order Comment: Relea se to patient->Immediate Performed By: #### L [id number] ####[place] [id number] [place] [address] [facility] WBC (Bld) [#/Vol] 12.0 10*3/uL Normal [facility] Comment on above: Order Comment: Relea se to patient->Immediate Performed By: #### L [id number] ####[place] [id number] [place] [address] [facility] WHITE BLOOD CELL COUNT Normal 4.0-10.5 [facility] Comment on above: Order Comment: Relea se to patient->Immediate Performed By: #### L [id number] ####[address] [address] [facility] RENAL FUNCTION PANELon 03-07 ALBUMIN Normal 3.5-5.7 [facility] Comment on above: Order Comment: KDIGO 2012 GFR Categories StageDescriptioneGFR (mL/min/1.73m2) N9Vzitrx or high>=90 H0Uwcmsy prikbmzdo28-64 E5eUbqdtb to moderately -23 O5bDcqeuekjuw to severely nlsbxorui52-10 T5Gpgdkiyr hniuvkgdb56-37 U0Fqiirc Failure<15 Release to patient->Immediate Performed By: #### L [id number] #### [place] [address] [place] [id number] [facility] Albumin [Mass/Vol] 4.0 g/dL Normal [facility] Comment on above: Order Comment: KDIGO 2012 GFR Categories StageDescriptioneGFR (mL/min/1.73m2) F3Lpnzyv or high>=90 J7Rnydvv chaievvrt10-37 V3pTofwdy to moderately aufjgsand71-02 D8zCudoswduvz to severely gqxamhbqh75-11 W2Iwbauhbo wizlsozwz13-38 Y0Ruhltl Failure<15 Release to patient->Immediate Performed By: #### L [id number] #### [place] [address] [place] [id number] [facility] ANION GAP Normal 7-16 [facility] Comment on above: Order Comment: KDIGO 2012 GFR Categories StageDescriptioneGFR (mL/min/1.73m2) P2Ufqknd or high>=90 Q2Kmtcsx yeqzzwxyj13-35 H3sIyxmiv to moderately rjhtyiipi01-57 F6uWmizatdyae to severely -59 F1Spremoqp zjtolxqrd65-46 L6Cxvvqo Failure<15 Release to patient->Immediate Performed By: #### L [id number] #### [place] [address] [place] [address] [facility] Anion gap [Moles/Vol] 5 mmol/L Normal [facility] Comment on above: Order Comment: KDIGO 2012 GFR Categories StageDescriptioneGFR (mL/min/1.73m2) R0Iymweh or high>=90 B8Zegmnn zdbvnqeqd48-50 A8bUqdecg to moderately tqucoftee33-38 W7sBtdfyulptw to severely rdgrhtvyv65-67 C1Caysqyxm -30 K6Obnigk Failure<15 Release to patient->Immediate Performed By: #### L [id number] #### [address] [address] [facility] BLOOD UREA NITROGEN Normal 7-25 [facility] Comment on above: Order Comment: KDIGO 2012 GFR Categories StageDescriptioneGFR (mL/min/1.73m2) F9Tzhfwe or high>=90 T9Zhjujy dmqwzagvb90-25 W6rYznpgk to moderately -84 O9tKwkgsojikh to severely xrodbuchv01-37 E9Xxnawdsc -85 A6Lobamt Failure<15 Release to patient->Immediate Performed By: #### L [id number] #### [address] [address] [place] CALCIUM Normal 8.6-10.2 [facility] Comment on above: Order Comment: KDIGO 2012 GFR Categories StageDescriptioneGFR (mL/min/1.73m2) V6Lvvtxh or high>=90 V6Zbzing fvrxaqrwa77-89 V9uAvrrdd to moderately ndddopbyy34-77 W3bUmmckblief to severely ibyprswxk00-54 Y9Ukbiqosh xfvbmdefq96-74 Q3Mpopfq Failure<15 Release to patient->Immediate Performed By: #### L [id number] #### [place] [address] [place] [address] [facility] Calcium [Mass/Vol] 9.0 mg/dL Normal [facility] Comment on above: Order Comment: [facility] 2012 GFR Categories StageDescriptioneGFR (mL/min/1.73m2) E5Dyufdn or high>=90 Q4Jgikcg tiwioswtw28-72 N1pBhpcrj to moderately zhfysfoag53-37 U2qRyjixwodmy to severely qgyodawvb58-04 N7Bpfiiifb tklcakmsl25-17 M7Ghzxpf Failure<15 Release to patient->Immediate Performed By: #### L [id number] #### [place] [id number] [facility] CARBON DIOXIDE Normal 21-31 [facility] Comment on above: Order Comment: [facility] 2012 GFR Categories StageDescriptioneGFR (mL/min/1.73m2) F2Faxyxp or high>=90 Q8Yosycw kkdanjjhf97-90 B9uCprlza to moderately luuvaqfhx71-59 V9fZpaximtvji to severely qjoihjhwj45-07 X5Svjquacj rtvyzunkm26-05 H9Yqjfqz Failure<15 Release to patient->Immediate Performed By: #### L [id number] #### [address] [address] [place] CHLORIDE Normal 98-107 [facility] Comment on above: Order Comment: [facility] 2011 GFR Categories StageDescriptioneGFR (mL/min/1.73m2) R8Qdeukn or high>=90 G1Ryydza jxgkbsuak34-25 J2bHvnrgf to moderately ptznlnreb12-77 S4fMzlhafhvnf to severely ojpnhzwbk35-90 I9Xkdmkhwg jvzsdpudw65-20 K1Pzefme Failure<15 Release to patient->Immediate Performed By: #### L [id number] #### [place] [id number] [facility] Chloride [Moles/Vol] 102 mmol/L Normal [facility] Comment on above: Order Comment: KDIGO 2012 GFR Categories StageDescriptioneGFR (mL/min/1.73m2) Q4Sgpxwo or high>=90 C4Coapfp rlwhdihpo09-47 N7sAstqel to moderately fkarjtdhn21-21 I8dCkxuaweaqu to severely dfdeejvsg32-80 L6Vhfqoxag zdbztljwa34-21 U0Pfguan Failure<15 Release to patient->Immediate Performed By: #### L [id number] #### [address] CO2 [Moles/Vol] 28 mmol/L Normal [facility] Comment on above: Order Comment: KDIGO 2012 GFR Categories StageDescriptioneGFR (mL/min/1.73m2) Q8Lrhxuj or high>=90 M0Genntx curhyhyis04-49 Z6rLyyuzb to moderately owtiggdoe00-11 J8gMuvciysqme to severely favvewmgo62-54 M1Bqdvawsc ljwmijsyr60-26 L7Uzwirm Failure<15 Release to patient->Immediate Performed By: #### L [id number] #### [address] CREATININE Normal 0.7-1.3 [facility] Comment on above: Order Comment: KDIGO 2012 GFR Categories StageDescriptioneGFR (mL/min/1.73m2) J4Hgtbdj or high>=90 E1Jrsfmk wpmubapec89-31 U5zRdclwm to moderately mqzvcozgg57-06 Y0iQyvfqmhhuc to severely kbpemialt50-46 H5Vfrulloy sahxyeczs68-99 I4Buxvnv Failure<15 Release to patient->Immediate Performed By: #### L [id number] #### [address] Creatinine [Mass/Vol] 0.90 mg/dL Normal [facility] Comment on above: Order Comment: KDIGO 2012 GFR Categories StageDescriptioneGFR (mL/min/1.73m2) N2Tzppqn or high>=90 B3Zldyrj vilnitqzq70-12 Z4ePlnnbf to moderately oljzlnjwa35-52 C3uZujhmrbltg to severely gzbjiwpat74-15 K6Wfrwtyig nmjpxufjw32-16 F3Rahrrc Failure<15 Release to patient->Immediate Performed By: #### L [id number] #### [address] GFR MALE Normal >90 [facility] Comment on above: Order Comment: KDIGO 2012 GFR Categories StageDescriptioneGFR (mL/min/1.73m2) N0Dmtimp or high>=90 L5Ckwjfv bvsqivqtb68-90 D1xJpbgcf to moderately eetnikclc04-11 O4zEfiosbrkua to severely kzasbmxzs68-07 B8Fbdqzwmv pzaufptsj69-79 W2Xesqcm Failure<15 Release to patient->Immediate Result Comment: Repo rted eGFR is based on the CKD-EPI 2020 equation that does not use a race coefficient. Performed By: #### L [id number] #### [address] GFR MALE >90 Normal [facility] Comment on above: Order Comment: KDIGO 2012 GFR Categories StageDescriptioneGFR (mL/min/1.73m2) Y1Tqktub or high>=90 F3Bzsmkt uojpxwmrl05-07 B6jNrvolc to moderately asvykqpkt64-86 U4rPzlgugfnsg to severely xxalanbmn98-37 A8Nsytrcsb msvelylat15-00 H0Hhxvbu Failure<15 Release to patient->Immediate Performed By: #### L [id number] #### [address] GLUCOSE Normal [facility] Comment on above: Order Comment: KDIGO 2012 GFR Categories StageDescriptioneGFR (mL/min/1.73m2) M0Bclqny or high>=90 E3Gefdya tpyggvazq82-41 M3lUbnjsp to moderately rlfyohvin89-77 V8wFabeopmipo to severely jyuvacfob36-40 B4Vudlhrzo rofxbfqoy76-08 C7Arjrno Failure<15 Release to patient->Immediate Performed By: #### L [id number] #### [address] Glucose [Mass/Vol] 145 mg/dL Normal [facility] Comment on above: Order Comment: KDIGO 2012 GFR Categories StageDescriptioneGFR (mL/min/1.73m2) N3Asywtn or high>=90 N0Ybuqwx cuxyldieo28-91 S6jTfyaou to moderately qpwufjqyq93-76 W5wYzuurtabeh to severely wvslzsylr69-82 L0Tqtshdqd pvkbdimdi77-51 X5Mtuleu Failure<15 Release to patient->Immediate Performed By: #### L AB19 #### [place] [address] [place] [id number] [facility] Phosphate [Mass/Vol] 2.3 mg/dL Normal [facility] Comment on above: Order Comment: KDIGO 2011 GFR Categories StageDescriptioneGFR (mL/min/1.73m2) R5Zjkfiz or high>=90 C9Ptefdy wblagnwib20-58 N1kPyiojc to moderately gdcoowysj57-80 K7nYjlvrjkolz to severely eufridcjs19-13 U1Vwqyupsq xcjrcekjs18-62 U2Rkdcpd Failure<15 Release to patient->Immediate Performed By: #### L AB19 #### [place] [id number] [facility] PHOSPHORUS Normal 2.5-5.0 [facility] Comment on above: Order Comment: KDIGO 2011 GFR Categories StageDescriptioneGFR (mL/min/1.73m2) E8Eobmwb or high>=90 Q9Mgkpil qjxsampxt05-23 A1dXuqrta to moderately igqimmxuc83-72 B5yVchxzmfqly to severely vdckssfhi45-85 C8Zjaaqoiw xwnoelzqz53-41 H4Vxlomy Failure<15 Release to patient->Immediate Performed By: #### L AB19 #### [place] [id number] [facility] POTASSIUM Normal 3.5-5.1 [facility] Comment on above: Order Comment: KDIGO 2011 GFR Categories StageDescriptioneGFR (mL/min/1.73m2) H7Gxrvlq or high>=90 A1Qviliq bkeghyukw13-64 G7yLsxbxh to moderately phdmjvodp67-10 X1gXwviabgbgd to severely ydjmrqgiz33-14 S9Alnrqdhw cngwyoork75-22 P1Zammob Failure<15 Release to patient->Immediate Performed By: #### L AB19 #### [place] [id number] [facility] Potassium [Moles/Vol] 4.0 mmol/L Normal [facility] Comment on above: Order Comment: KDIGO 2011 GFR Categories StageDescriptioneGFR (mL/min/1.73m2) Q7Wcdnpa or high>=90 F0Wumruv xbhovytsd40-16 W8cUnjfyq to moderately sgnamjwqe22-66 V9mUzzlcfdvnj to severely bwxgkdkao40-51 I4Xpmxilbx ocrzkufvo99-75 J4Nyxedq Failure<15 Release to patient->Immediate Performed By: #### L AB19 #### [address] SODIUM Normal 136-145 [facility] Comment on above: Order Comment: IGO 2012 GFR Categories StageDescriptioneGFR (mL/min/1.73m2) C4Hdxxez or high>=90 U4Iimctu wiwxqpchj95-83 V8lSomwtd to moderately oihwvejee47-53 R0lKruupatnlx to severely pnmznbxci04-72 I8Zaohbqag hcwgtjaey60-02 K8Skkhby Failure<15 Release to patient->Immediate Performed By: #### L [id number] #### [address] Sodium [Moles/Vol] 135 mmol/L Normal [facility] Comment on above: Order Comment: KDIGO 2012 GFR Categories StageDescriptioneGFR (mL/min/1.73m2) W6Docisu or high>=90 J6Wtausq kvnsibjmu28-30 T1sBcpbny to moderately vcatygdjq88-86 E9pElutduajtl to severely bkdctgxde57-15 E1Qusdyzsj jqmilfqsu82-18 K8Lkkvyi Failure<15 Release to patient->Immediate Performed By: #### L AB19 #### [address] Urea nitrogen [Mass/Vol] 10 mg/dL Normal [facility] Comment on above: Order Comment: KDIGO 2012 GFR Categories StageDescriptioneGFR (mL/min/1.73m2) E5Xnumhl or high>=90 I7Mlpxxa amjoggcjt44-35 H8wGgvznx to moderately dhohylnms47-92 D9xUwpryevobe to severely -89 J4Vrepxzgx iflyxaavn51-12 M8Lxjisd Failure<15 Release to patient->Immediate Performed By: #### L [id number] #### [address] BASIC METABOLIC PANELon 10-2 -2022 ANION GAP Normal 7-16 [facility] Comment on above: Order Comment: KDIGO 2012 GFR Categories StageDescriptioneGFR (mL/min/1.73m2) L5Oytvbi or high>=90 R2Okvire eqswyotab28-26 L6iArulgg to moderately cmfuebpun03-26 C6wThckowsapu to severely dnosghesd18-01 R7Qkfelmjw ddvakskph98-45 A4Abicjp Failure<15 Release to patient->Immediate Performed By: #### L AB15 #### [address] Anion gap [Moles/Vol] 9 mmol/L Normal [facility] Comment on above: Order Comment: KDIGO 2012 GFR Categories StageDescriptioneGFR (mL/min/1.73m2) I7Tvwdet or high>=90 M0Ijoppl hdjpgadhn79-79 I6qDpesnd to moderately dvnclfcci46-38 R5vJyeneyeogh to severely cymgohccl90-38 I8Cppevonq uvhteltfr17-09 T6Sblkfa Failure<15 Release to patient->Immediate Performed By: #### L AB15 #### [address] BLOOD UREA NITROGEN Normal 7-25 [facility] Comment on above: Order Comment: KDIGO 2011 GFR Categories StageDescriptioneGFR (mL/min/1.73m2) K8Mjobpq or high>=90 E6Ebcwcv aaurpbphf85-12 F9eUfvmdb to moderately rnmaghtdi75-80 S1jNxomeakvtk to severely moxiyfttq90-49 O6Xivnsdwo crdziprwo51-05 Q6Ifcato Failure<15 Release to patient->Immediate Performed By: #### L AB15 #### [address] CALCIUM Normal 8.6-10.2 [facility] Comment on above: Order Comment: KDIGO 2011 GFR Categories StageDescriptioneGFR (mL/min/1.73m2) V1Kajttj or high>=90 V7Axcgmo kviwokauj09-55 J1kHqifoo to moderately jodimyzye65-11 L8fZkhpexyeca to severely auaahoszt80-65 H4Vezqantf gyksnsqlv71-59 A5Cxcjgk Failure<15 Release to patient->Immediate Performed By: #### L AB15 #### [address] [place] [address] [facility] Calcium [Mass/Vol] 9.5 mg/dL Normal [facility] Comment on above: Order Comment: KDIGO 2012 GFR Categories StageDescriptioneGFR (mL/min/1.73m2) Q1Noqbfg or high>=90 N6Zkaacz rjppuqehv54-42 P0xPjjlvq to moderately hxvqcasxv64-69 A2rWcqtanyjun to severely mhdttmsbu13-78 K6Gkfjrcxe aueldkudz52-45 C2Uccfvk Failure<15 Release to patient->Immediate Performed By: #### L AB15 #### [place] [id number] [facility] CARBON DIOXIDE Normal 21-31 [facility] Comment on above: Order Comment: KDIGO 2011 GFR Categories StageDescriptioneGFR (mL/min/1.73m2) L8Czgsdu or high>=90 Z1Hdlmsu vpslopsaf45-44 L1mNdkmxq to moderately fmtoytlzd35-86 D9jGnlgyivgva to severely ruurmzrjt80-15 I1Vqbjhtmj siygztmlr82-00 R7Ozirjq Failure<15 Release to patient->Immediate Performed By: #### L AB15 #### [address] [address] [facility] CHLORIDE Normal 98-107 [facility] Comment on above: Order Comment: KDIGO 2011 GFR Categories StageDescriptioneGFR (mL/min/1.73m2) V1Uczcqi or high>=90 O9Arkney aguqerost10-43 Y3pVtegkq to moderately fehuugvtj12-48 Z7sNxfryvhdch to severely pepebtprw20-11 V4Jrhkdwht oguzdtpad50-35 Z5Hqorsu Failure<15 Release to patient->Immediate Performed By: #### L AB15 #### [place] [address] [place] [address] [facility] Chloride [Moles/Vol] 104 mmol/L Normal [facility] Comment on above: Order Comment: KDIGO 2012 GFR Categories StageDescriptioneGFR (mL/min/1.73m2) L5Dttaxp or high>=90 H9Kbjeix gbawohrba74-02 H5gLeugfv to moderately ljptpfshi69-11 I9vEsgfkeoalo to severely nmabihsot20-00 I0Vhqtihid lonjsecic25-01 L1Hsmvhn Failure<15 Release to patient->Immediate Performed By: #### L AB15 #### [address] CO2 [Moles/Vol] 25 mmol/L Normal [facility] Comment on above: Order Comment: KDIGO 2012 GFR Categories StageDescriptioneGFR (mL/min/1.73m2) P5Xgqtwr or high>=90 N4Sosehe refovoixp53-57 E3rEymyvj to moderately skubuypbp10-19 F2lIwabossncw to severely -69 C8Dfxomgyw opwpmubsw61-39 M9Bsrcgq Failure<15 Release to patient->Immediate Performed By: #### L AB15 #### [address] CREATININE Normal 0.7-1.3 [facility] Comment on above: Order Comment: KDIGO 2012 GFR Categories StageDescriptioneGFR (mL/min/1.73m2) X2Ulygpr or high>=90 F5Agufls rbacruxxn52-85 H7dMbhudz to moderately znoiifnfd92-24 S3aRqsyprqpns to severely ywcsgnsnk06-69 M8Shhzfmwh fqxaxvrin25-07 I9Xjzyor Failure<15 Release to patient->Immediate Performed By: #### L AB15 #### [address] Creatinine [Mass/Vol] 0.86 mg/dL Normal [facility] Comment on above: Order Comment: KDIGO 2012 GFR Categories StageDescriptioneGFR (mL/min/1.73m2) J0Fotpdn or high>=90 E1Sfnksj bwnbynwfw78-09 Q5wFuhynu to moderately yffhpihli24-66 O4dBuccjkmrmu to severely hcmeefxfq47-76 F3Avksnymb dwyguvnir27-56 B5Pwcrjv Failure<15 Release to patient->Immediate Performed By: #### L AB15 #### [address] GFR MALE Normal >90 [facility] Comment on above: Order Comment: KDIGO 2012 GFR Categories StageDescriptioneGFR (mL/min/1.73m2) E8Ynjdvo or high>=90 Z6Ykarhr vgdxvjunk04-67 D7uJztuua to moderately esqmstqtw60-36 D3qZpanuizzay to severely pvafzfugh28-44 P0Jxfuyuxb meyqkplhf94-33 J6Ydsebp Failure<15 Release to patient->Immediate Result Comment: Repo rted eGFR is based on the CKD-EPI 2020 equation that does not use a race coefficient. Performed By: #### L AB15 #### [address] GFR MALE >90 Normal [facility] Comment on above: Order Comment: KDIGO 2012 GFR Categories StageDescriptioneGFR (mL/min/1.73m2) P9Qplnao or high>=90 D2Voaihn ptcauxvsn19-40 A7hVablua to moderately hzoapmtjh82-69 H0wKyekdurpdy to severely olarknizv14-59 L5Jsbgmahi xozapjywi56-13 K3Zwydmp Failure<15 Release to patient->Immediate Performed By: #### L AB15 #### [address] GLUCOSE Normal 74-109 [facility] Comment on above: Order Comment: KDIGO 2012 GFR Categories StageDescriptioneGFR (mL/min/1.73m2) R4Ptnfnt or high>=90 W0Yhnghx hdfpbjrop03-06 S4xYcnagc to moderately -68 Z0wMzsqwkhptc to severely jzwgdcqty37-79 Y6Ffflqhvi pgxgkrkki59-66 N4Elimuh Failure<15 Release to patient->Immediate Performed By: #### L AB15 #### [address] Glucose [Mass/Vol] 98 mg/dL Normal [facility] Comment on above: Order Comment: KDIGO 2012 GFR Categories StageDescriptioneGFR (mL/min/1.73m2) C5Wglnnc or high>=90 T5Czmwwv -42 F1hKkzrcp to moderately oawfdgvus35-47 U6lKdgtxuamkr to severely dhanvvtdq29-55 M0Rusypqvb yyqaepqly55-37 A2Rbmfhc Failure<15 Release to patient->Immediate Performed By: #### L AB15 #### [address] POTASSIUM Normal 3.5-5.1 [facility] Comment on above: Order Comment: KDIGO 2012 GFR Categories StageDescriptioneGFR (mL/min/1.73m2) U8Qmlbrp or high>=90 L1Kfynfy ehzejrudt03-66 K9uAsibqj to moderately qwcuvurmb46-24 P7cRqfneevphm to severely yybwkhayu64-15 P6Zfkmcrvd veblrmayf56-26 X0Byjmml Failure<15 Release to patient->Immediate Performed By: #### L AB15 #### [place] [id number] [facility] Potassium [Moles/Vol] 3.9 mmol/L Normal [facility] Comment on above: Order Comment: KDIGO 2012 GFR Categories StageDescriptioneGFR (mL/min/1.73m2) V8Vxxihl or high>=90 U9Yskdwc blbmwvgod40-86 N6tYsspyy to moderately daozwefbs02-87 J5wOnzyknuqqu to severely -86 L9Pngrewfl rnlzfojku75-93 G6Leqsal Failure<15 Release to patient->Immediate Performed By: #### L AB15 #### [place] [id number] [facility] SODIUM Normal 136-145 [facility] Comment on above: Order Comment: KDIGO 2012 GFR Categories StageDescriptioneGFR (mL/min/1.73m2) Y0Ravegd or high>=90 J6Jbskzz kecbjzbtf95-20 J6lVuxoat to moderately airkoscht33-13 Q5bWqicsxdxru to severely rxbwjnlci44-46 Y1Eyokxefm arpodiljj95-96 U9Yyjmuc Failure<15 Release to patient->Immediate Performed By: #### L AB15 #### [address] [address] [facility] Sodium [Moles/Vol] 138 mmol/L Normal [facility] Comment on above: Order Comment: KDIGO 2012 GFR Categories StageDescriptioneGFR (mL/min/1.73m2) R2Eurwxf or high>=90 Z5Lwypmp vqafdyqin38-07 J3sPqsgnv to moderately zabbqhdql81-66 J5fGjwakeoycs to severely nwsogrmde43-59 V7Inqzfjmr xqyqdvrqg09-72 K0Uzlgsq Failure<15 Release to patient->Immediate Performed By: #### L AB15 #### [address] Urea nitrogen [Mass/Vol] 12 mg/dL Normal [facility] Comment on above: Order Comment: KDIGO 2012 GFR Categories StageDescriptioneGFR (mL/min/1.73m2) V6Etalhd or high>=90 J4Qbxigf onefeylyz62-62 U1zBmudor to moderately tkxftajhu53-66 T3eExofpidjtq to severely -99 F2Jhcmedcv jfycmrzjy44-04 J8Ihsbds Failure<15 Release to patient->Immediate Performed By: #### L AB15 #### [address] CBC W/DIFFon 03-06-2023 BASOPHILS ABS AUTO Normal 0.0-0.1 [facility] Comment on above: Order Comment: Relea se to patient->Immediate Performed By: #### L [id number] ####[address] BASOPHILS ABS AUTO 0.1 Normal [facility] Comment on above: Order Comment: Relea se to patient->Immediate Performed By: #### L [id number] ####[address] BASOPHILS RELATIVE AUTO Normal [facility] Comment on above: Order Comment: Relea se to patient->Immediate Performed By: #### L [id number] ####[address] BASOPHILS RELATIVE AUTO 1.0 Normal [facility] Comment on above: Order Comment: Relea se to patient->Immediate Performed By: #### L [id number] ####[place] [id number] [facility] EOSINOPHIL ABS AUTO Normal 0.0-0.4 [facility] Comment on above: Order Comment: Relea se to patient->Immediate Performed By: #### L [id number] ####[place] [id number] [facility] EOSINOPHIL ABS AUTO 0.3 Normal [facility] Comment on above: Order Comment: Relea se to patient->Immediate Performed By: #### L [id number] ####[address] [place] [address] [facility] EOSINOPHILS RELATIVE AUTO Normal [facility] Comment on above: Order Comment: Relea se to patient->Immediate Performed By: #### L [id number] ####[address] [place] [address] [facility] EOSINOPHILS RELATIVE AUTO 4.4 Normal [facility] Comment on above: Order Comment: Relea se to patient->Immediate Performed By: #### L [id number] ####[address] [place] [address] [facility] Erythrocyte distribution width (RBC) [Ratio] 12.6 % Normal [facility] Comment on above: Order Comment: Relea se to patient->Immediate Performed By: #### L [id number] ####[place] [id number] [facility] HEMATOCRIT BLOOD Normal 39.0-51.5 [facility] Comment on above: Order Comment: Relea se to patient->Immediate Performed By: #### L [id number] ####[address] HEMATOCRIT BLOOD 48.9 Normal [facility] Comment on above: Order Comment: Relea se to patient->Immediate Performed By: #### L [id number] ####[address] [address] [facility] HEMOGLOBIN Normal 13.1-17.6 [facility] Comment on above: Order Comment: Relea se to patient->Immediate Performed By: #### L [id number] ####[address] [address] [facility] Hemoglobin (Bld) [Mass/Vol] 16.9 g/dL Normal [facility] Comment on above: Order Comment: Relea se to patient->Immediate Performed By: #### L [id number] ####[address] [address] [facility] LYMPHOCYTE ABS AUTO Normal 0.8-3.6 [facility] Comment on above: Order Comment: Relea se to patient->Immediate Performed By: #### L [id number] ####[address] [place] [address] [facility] LYMPHOCYTE ABS AUTO 1.6 Normal [facility] Comment on above: Order Comment: Relea se to patient->Immediate Performed By: #### L [id number] ####[address] [place] [address] [facility] LYMPHOCYTES RELATIVE AUTO Normal [facility] Comment on above: Order Comment: Relea se to patient->Immediate Performed By: #### L [id number] ####[address] [place] [address] [facility] LYMPHOCYTES RELATIVE AUTO 23.3 Normal [facility] Comment on above: Order Comment: Relea se to patient->Immediate Performed By: #### L [id number] ####[address] [place] [address] [facility] MCH Normal 28.4-33.4 [facility] Comment on above: Order Comment: Relea se to patient->Immediate Performed By: #### L [id number] ####[address] [place] [address] [facility] MCH (RBC) [Entitic mass] 31.8 pg Normal [facility] Comment on above: Order Comment: Relea se to patient->Immediate Performed By: #### L [id number] ####[address] [address] [facility] MCHC Normal 31.1-37.0 [facility] Comment on above: Order Comment: Relea se to patient->Immediate Performed By: #### L [id number] ####[address] [place] [address] [facility] MCHC (RBC) [Mass/Vol] 34.6 g/dL Normal [facility] Comment on above: Order Comment: Relea se to patient->Immediate Performed By: #### L [id number] ####[address] [place] [address] [facility] MCV Normal 85.0-99.0 [facility] Comment on above: Order Comment: Relea se to patient->Immediate Performed By: #### L [id number] ####[address] [place] [address] [facility] MCV (RBC) [Entitic vol] 91.9 fL Normal [facility] Comment on above: Order Comment: Relea se to patient->Immediate Performed By: #### L [id number] ####[address] [place] [address] [facility] MONOCYTE ABS AUTO Normal 0.3-0.9 [facility] Comment on above: Order Comment: Relea se to patient->Immediate Performed By: #### L [id number] ####[address] [place] [address] [facility] MONOCYTE ABS AUTO 0.5 Normal [facility] Comment on above: Order Comment: Relea se to patient->Immediate Performed By: #### L [id number] ####[address] [address] [place] MONOCYTES RELATIVE AUTO Normal [facility] Comment on above: Order Comment: Relea se to patient->Immediate Performed By: #### L [id number] ####[address] [place] [address] [facility] MONOCYTES RELATIVE AUTO 7.4 Normal [facility] Comment on above: Order Comment: Relea se to patient->Immediate Performed By: #### L [id number] ####[address] [place] [address] [facility] NEUTROPHIL ABS AUTO Normal 2.0-7.3 [facility] Comment on above: Order Comment: Relea se to patient->Immediate Performed By: #### L [id number] ####[address] [place] [address] [facility] NEUTROPHIL ABS AUTO 4.5 Normal [facility] Comment on above: Order Comment: Relea se to patient->Immediate Performed By: #### L [id number] ####[address] [address] [facility] NEUTROPHILS RELATIVE AUTO Normal [facility] Comment on above: Order Comment: Relea se to patient->Immediate Performed By: #### L [id number] ####[place] [id number] [place] [address] [place] NEUTROPHILS RELATIVE AUTO 63.9 Normal [facility] Comment on above: Order Comment: Relea se to patient->Immediate Performed By: #### L [id number] ####[place] [id number] [place] [address] [facility] PLATELET COUNT Normal 154-393 [facility] Comment on above: Order Comment: Relea se to patient->Immediate Performed By: #### L [id number] ####[place] [address] [place] [address] [facility] Platelets (Bld) [#/Vol] 191 10*3/uL Normal [facility] Comment on above: Order Comment: Relea se to patient->Immediate Performed By: #### L [id number] ####[address] [place] [address] [facility] RBC (Bld) [#/Vol] 5.32 10*6/uL Normal [facility] Comment on above: Order Comment: Relea se to patient->Immediate Performed By: #### L [id number] ####[address] [place] [address] [facility] RDW Normal 11.7-15.2 [facility] Comment on above: Order Comment: Relea se to patient->Immediate Performed By: #### L [id number] ####[address] [place] [address] [facility] RED BLOOD CELL COUNT Normal 4.30-5.86 [facility] Comment on above: Order Comment: Relea se to patient->Immediate Performed By: #### L [id number] ####[place] [id number] [place] [address] [place] WBC (Bld) [#/Vol] 7.0 10*3/uL Normal [facility] Comment on above: Order Comment: Relea se to patient->Immediate Performed By: #### L [id number] ####[address] [place] [address] [facility] WHITE BLOOD CELL COUNT Normal 4.0-10.5 [facility] Comment on above: Order Comment: Relea se to patient->Immediate Performed By: #### L [id number] ####[facility] [place] [id number] [facility] Consultson 03-06-2023 Consults Encounter Department : [facility] 4 SOUTH MED SURG Consults by Heladio Bateman MD at 03/06/2023 5:39 PM Author: JUSTINO Lawervice: HospitalistAuthor Type: Physician Filed: 03/07/2023 7:39 AMDate of Service: 03/06/2023 5:39 PMStatus: Signed Calibration Checker: Heladio Bateman MD (Physician) Medicine Consult Name: Joi Madrigal Date/Time of Admission: 03/06/2023 10:25 AM CSN: [id number] Attending Provider: Dhaval Page DO Room/Bed: [facility]/[id number] : 1960 AGE:63 y.o. Primary Care Physician: PHYSICIAN LASHELL Reason for Consultation: POSTOPERATIVE MEDICAL MANAGEMENT. Assessment: 1.Erectile dysfunction with Peyronie's disease and Penoscrotal web. 2.Inflatable penile prosthesis placement with modeling. Scrotoplasty. 03/06/2023. 3.Gastroesophageal reflux disease. 4.Osteoarthritis. 5.Right total shoulder arthroplasty. Recommendations: 1.Continue with the current DVT prophylaxis. 2.GI prophylaxis as indicated. 3.Incentive spirometry x 10 per hour while awake. 4.Medication reconciliation reviewed and completed. 5.CBC and renal panel in the morning. History of present illness: Joi Madrigal is a 63-year-old male with a history of erectile dysfunction with Peyronie's disease and a penoscrotal web. He was seen and evaluated by Dr. Dhaval Guzman today underwent inflatable penile prosthesis placement with modeling and scrotoplasty. I have been asked to help with his medical management. 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 He is status post a right shoulder arthroplasty. Postoperatively his pain is adequately controlled. Urine in his Brody bag is clear. He does have an elevated blood pressure measurement without a history of hypertension. ALLERGIES: Allergies AllergenReactions -Iodinated Contrast MediaNausea And Vomiting -Penicillins Unsure -Sulfa (Sulfonamide Antibiotics)Nausea And Vomiting MEDICATIONS: Medications Prior to Admission MedicationSigDispenseR efillLast Dose -dutasteride (AVODART) 0.5 mg capsuleTake 1 capsule (0.5 mg total) by mouth daily.Past Week -metFORMIN (GLUCOPHAGE-XR) 500 mg 24 hr tabletTake 1 tablet (500 mg total) by mouth daily.Past Week -omeprazole (PRILOSEC) 40 mg delayed-release capsuleTake 1 capsule (40 mg total) by mouth in the morning and 1 capsule (40 mg total) before bedtime.Past Week -tadalafiL (CIALIS) 10 mg tabletTake 1 tablet (10 mg total) by mouth daily.Past Week PAST MEDICAL HISTORY: Past Medical History: DiagnosisDate -Exercise tolerance [id number]/01/2023 Able to walk a flight of stairs w/o cp or sob. No cane or walker. 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 No pertinent family history. Review of Systems: . Constitutional: Denies any fever, chills, night sweats, weight loss or gain in the past 6 months or so. Pulmonary: Denies any shortness of breath, and chest pain, coughing, wheezing. Cardiac: Denies any chest pain, PND, orthopnea, palpitations. Gastrointestinal: Denies any heartburn, nausea, vomiting, diarrhea or constipation. Genitourinary: Denies any dysuria, hematuria, urinary urgency or nocturia. Neurological: Denies any headaches, visual changes or focal neurological deficits. Psychiatric: Denies any depression or anxiety. Musculoskeletal: Denies any other arthralgias, no myalgias. Hematologic: Denies any blood dyscrasias, no abnormal bleeding or blood clot formation. Endocrine: Denies any heat or cold intolerance. No night sweats. Objective: Vital signs in last 24 hours: Temp: [97.3 ?F (36.3 ?C)-98.5 ?F (36.9 ?C)] 97.7 ?F (36.5 ?C) Pulse: [72-85] 77 Resp: [0-19] 18 BP: (99-156)/(66-108) 141/95 No intake/output data recorded. I/O this shift: In: 2312.1 [P.O.:948; I.V.:1153.6; IV Piggyback:210.5] Out: 420 [Urine:400; Blood:20] I Physical Exam: General Appearancealert, well appearing, and in no distress, oriented to person, place, and time. Eyesnegative Ears, Nose, ThroatENT exam normal, no neck nodes or sinus tenderness Necksupple, no significant adenopathy Respiratoryinspection normal - no chest wall deformities or tenderness, respiratory effort normal, clear to auscultation. CardiovascularCVS exam S1, S2 normal, no gallop, no murmur, chest clear, no JVD, no HSM, no edema Gastrointestinalabdome n is soft without significant tenderness, masses, organomegaly or guarding. MusculoskeletalNo (more content not included)... Normal [facility] EKG STANDARD 12 LEADon 03-06 EKG STANDARD 12 LEAD Normal [facility] EKG STANDARD 12 LEAD HEART RATE= 75 bpm RR Interval= 800 ms P-R Interval= 185 ms QRSD Interval= 114 ms QT Interval= 387 ms QTcB= 433 ms QRS [place]= -31 deg T Wave [place]= 3 deg Report= - NORMAL ECG - Report= Sinus rhythm Report= ivcd, nsst changes INTERPRETING PHYS= Confirmed by: Bandar Wylie) 02-Apr-2023 01:16:19 Normal [facility] Op Noteon 03-06-2023 Op Note Encounter Department : [address] SURG Op Note by Dhaval Page, DO at 03/06/2023 12:53 PM Author: Dhaval Page, DOService: UrologyAuthor Type: Physician Filed: 03/06/2023 6:29 PMDate of Service: 03/06/2023 12:53 PMStatus: Addendum Calibration Checker: Dhaval Page DO (Physician) Related Notes: Original Note by Dhaval Page DO (Physician) filed at 03/06/2023 2:46 PM DATE OF PROCEDURE: 03/06/2023 SURGEON: Primary: Dhaval Page DO Pre-Op Diagnosis Codes: * Peyronie's disease [N48.6] * Erectile Dysfunction * Scrotal disorder (web) Post-Op Diagnosis Codes: * Peyronie's disease [N48.6] * Erectile Dysfunction * Scrotal disorder (web) Procedures: 1.INFLATABLE PENILE PROTHESIS PLACEMENT 2.ARTIFICIAL ERECTION WITH MODELING (35055, 12020) 3. SCROTOPLASTY (82205) COMPLICATIONS: None ANESTHESIA: General ASA: II EBL: 50 cc IMPLANT(S): Implant NameTypeInv. ItemSerial No.ManufacturerLot No.LRBNo. UsedAction PENILE ACCESS PKPENILE ACCESS [facility] [employer] [id number] mplanted BALLO RESERV PENILE AMS 700 100MLBALLO RESERV PENILE AMS 700 100MLAtlas Spine [id number] mplanted PENILE CX MS 21CM PS IZPENILE CX MS 21CM PS [employer] [id number] mplanted Rear Rip [facility] [place] [id number] mplanted FINDINGS: AMS 700-CX, 21 cm + 1 cm RTE, Rt inguinal Conceal 100 ml reservoir HISTORY OF PRESENT ILLNESS: Joi Madrigal is a 63 y.o. male with ED with Peyronie's disease and Penoscrotal web. Desires surgical intervention. Fully counseled and consent granted, signed, and witnessed,. To OR today for IPP placement with modeling, Scrotoplasty. Set-Up: After the risks and benefits were explained, informed consent was obtained. Pre-procedure antibiotics were given and the patient was brought back to the operating room. Bilateral sequential compression devices were placed on the lower extremities. Anesthesia was then administered and the patient was placed in the supine position. The patient was then prepped and draped in the standard sterile fashion and a proper time-out was performed. OPERATIVE NARRATIVE: After surgery consent was signed and witnessed and preop antibiotics were given, the patient was taken to the operating room, placed supine, underwent general anesthesia. The patient was then prepped and draped in a standard sterile surgical fashion. A 16-Romanian Brody catheter was placed easily with 10 mL of sterile water in the balloon and placed to gravity bag drainage throughout the case. The hook was placed in the urethral meatus and the phallus was placed on stretch using the Stopover Retractor System. A 3 cm transverse troy shaped penoscrotal incision was then made to remove the scrotal web and dissection was carried down to the corpora cavernosa bilaterally with sharp dissection. Preston with the Stopover retractor system was used for adequate exposure. The corpora cavernosa was dissected sharply and 2-0 PDS suture placed at corporotomy sites bilaterally. At that point, 1 cm corporotmy made bilaterally and corpora dilated with nolen dilators from 9 to 13 both proximally and distally bilaterally. Midline scrotal puch developed. Copious antibiotic irrigation was used for the scrotal pouch as well as the corpora cavernosa bilaterally. The Brayden device was then used to measure the corpora cavernosa, which were noted to be 10 cm proximal and 12 cm distal bilaterally. At that point, then, an AMS 700-CX penile implant with 21 cm cylinder with 1 cm rear-tip manager distribution center and 100 mL Conceal reservoir was prepared on the back table. A pocket was made in the space of retzius by piercing the transversalis fascia at the Right external inguinal ring. 100 mL of normal saline was instilled without any evidence of back pressure and the reservoir tubing was then clamped with a Shod clamp. At that point, then, the cylinders with rear-tip extenders were then placed within the corpora using the Sukhi needle and a Brayden device bilaterally. The PDS sutures were pre-placed at the corporotomy sites bilaterally and were tied down for closed adequate closure of the corporotomy bilaterally. At that point, then, a new midline scrotal pouch was made and the pump was then placed in a midline scrotal pouch and kept in good position with a 2-0 Vicryl in a pursestring type fashion. Tubing was then subset deep with layers of dartos tissue covering the tubing with a running 2-0 Vicryl suture. Tubing from the pump to the reservoir was then trimmed and connected using the Quick Connect system. Modeling of artificial erection performed once penile implant fully inflated and all tubing shod clamped to protect system. 60 degree Dorsal mid-phallus curvature successfully modeled. Tubing unclamped and implant left at 65% inflation. All tubing was then subset and a layer of dartos was ran with a 2-0 Vicryl suture. At that point, th (more content not included)... [facility] SURGICAL PATHOLOGY RESULTSon 11-07-2022 Pathology Report Name JOI MADRIGAL Pathologist: CHAPIN DAVIS M.D., PhD. Date of Procedure: 10/20/2022 Date Received: 10/21/2022 Date Reported 11/07/2022 Submitting Physician: KIKI MONTIEL DO Location: [facility] Copy To/Referring/Attending : SUNSHINE SOLANO APRN-PLEATING SUPERVISOR Other External # FINAL DIAGNOSIS A. ANTRAL BIOPSY: --GASTRIC MUCOSA, NO SIGNIFICANT PATHOLOGIC FINDINGS --NO EVIDENCE OF HELICOBACTER PYLORI B. DUODENAL BIOPSY: --SMALL BOWEL MUCOSA, NO SIGNIFICANT PATHOLOGIC FINDINGS C. DISTAL ESOPHAGUS BIOPSY: --SQUAMOCOLUMNAR JUNCTIONAL MUCOSA, NEGATIVE FOR INTESTINAL METAPLASIA Electronically Signed Out By CHAPIN DAVIS M.D., PhD./WLI By the signature on this report, the individual or group listed as making the Final Interpretation/Diagnos is certifies that they have reviewed this case. Diagnostic interpretation performed at [facility] [address] [facility] [address] Clinical History: GERD Specimens Submitted As: A: ANTRAL BX B: DUODENAL BX C: DISTAL ESOPHAGUS BX Gross Description: A: Received in formalin, labeled with the patient's name and hospital number and antral BX, is a fragment of tamayo, soft tissue measuring 0.1 x 0.1 x 0.1 cm. The specimen is submitted in toto in one cassette. RMP B: Received in formalin, labeled with the patient's name and hospital number and duodenal BX, are 2 fragments of tamayo, soft tissue aggregating to 0.7 x 0.2 x 0.2 cm. The specimen is submitted in toto in one cassette. RMP C: Received in formalin, labeled with the patient's name and hospital number and distal esophagus BX, are multiple fragments of tamayo, soft tissue aggregating to 0.8 x 0.2 x 0.2 cm. The specimen is submitted in toto in one cassette. RMP rmp/10/27/2022 [facility] Department of Pathology [address] [place] [address] Colonoscopyon 10-20-2022 Colonoscopy PATIENTNAME Patient Name: Joi Madrigal EXAMDATE Procedure Date: 10/20/2022 11:49 AM PATIENTID PATIENTACCOUNTNUM PATIENTDOB Date of : 1960 ADMITTYPE Admit Type: Outpatient PATIENTROOM Site: [facility] Proc RM 1 ETHNICITY Ethnicity: Not or RACE Race: White PROVDR Attending MD: Kiki Montiel DO, [id number] ENDOPROCEDURENAME Procedure: Colonoscopy INDICATION Indications: Screening for colorectal malignant neoplasm PRIMARYPROVIDER Providers: Kiki Montiel DO (Doctor), Jocelyn Seay RN (Nurse), Angeles Joyce RN (Nurse) EDREFPROVIDER Referring: Sunshine Solano CURRENT_MEDS Medicines: Midazolam 6 mg IV, Meperidine 50 mg IV COMPLIC Complications: No immediate complications. ENDOPROCEDURETEXT Procedure: Pre-Anesthesia Assessment: - Prior to the procedure, a History and Physical was performed, and patient medications and allergies were reviewed. The patient is competent. The risks and benefits of the procedure and the sedation options and risks were discussed with the patient. All questions were answered and informed consent was obtained. Patient identification and proposed procedure were verified by the physician in the pre-procedure area. Mental Status Examination: alert and oriented. Airway Examination: normal oropharyngeal airway and neck mobility. Respiratory Examination: clear to auscultation. CV Examination: normal. Prophylactic Antibiotics: The patient does not require prophylactic antibiotics. Prior Anticoagulants: The patient has taken no anticoagulant or antiplatelet agents. ASA Grade Assessment: II - A patient with mild systemic disease. After reviewing the risks and benefits, the patient was deemed in satisfactory condition to undergo the procedure. The anesthesia plan was to use moderate sedation / analgesia (conscious sedation). Immediately prior to administration of medications, the patient was re-assessed for adequacy to receive sedatives. The heart rate, respiratory rate, oxygen saturations, blood pressure, adequacy of pulmonary ventilation, and response to care were monitored throughout the procedure. The physical status of the patient was re-assessed after the procedure. After I obtained informed consent, the scope was passed under direct vision. Throughout the procedure, the patient's blood pressure, pulse, and oxygen saturations were monitored continuously. The adult colonoscope was introduced through the anus and advanced to the terminal ileum, with identification of the appendiceal orifice and IC valve. The colonoscopy was performed without difficulty. The patient tolerated the procedure well. The quality of the bowel preparation was good. The terminal ileum, ileocecal valve, appendiceal orifice, and rectum were photographed. FINDING Findings: The perianal and digital rectal examinations were normal. Pertinent negatives include normal sphincter tone and no palpable rectal lesions. The terminal ileum appeared normal. The entire examined colon appeared normal on direct and retroflexion views. SEDATION Moderate Sedation: Moderate (conscious) sedation was administered by the nurse and supervised by the endoscopist. The following parameters were monitored: oxygen saturation, heart rate, blood pressure, and response to care. Total physician intraservice time was 30 minutes. EBL Estimated Blood Loss: Estimated blood loss: none. IMPRESS Impression: - The examined portion of the ileum was normal. - The entire examined colon is normal on direct and retroflexion views. - No specimens collected. ENDORECOMMENDATION Recommendation: - Patient has a contact number available for emergencies. The signs and symptoms of potential delayed complications were discussed with the patient. Return to normal activities tomorrow. Written discharge instructions were provided to the patient. - Resume previous diet. - Continue present medications. - Repeat colonoscopy in 10 years for screening purposes. CPT_CODES Procedure Code(s): --- Professional --- 43350, Colonoscopy, flexible; diagnostic, including collection of specimen(s) by brushing or washing, when performed (separate procedure) ICD_CODES Diagnosis Code(s): --- Professional --- Z12.11, Encounter for screening for malignant neoplasm of colon CODINGSTMT CPT copyright 2020 [employer]. All rights reserved. The codes documented in this report are preliminary and upon director of hotel operations review may be revised to meet current compliance requirements. ATTDRPART Attending Participation: I personally performed the entire procedure. SIGNATURENAME Kiki Montiel DO SIGNATUREDATE 10/20/2022 12:13:32 PM SIGNATUREONFILEIND This report has been signed electronically. NUMADDENDA Number of Addenda: 0 INITIATEDON Note Initiated On: 10/20/2022 11:49 AM WSCOPETIME (more content not included)... Normal [facility] Kiki Montiel DO - 11/06/2022 Patient Name: Joi Madrigal Procedure Date: 10/20/2022 11:49 AM Date of : 1960 Admit Type: Outpatient Site: [facility] 1 Ethnicity: Not or Race: White Attending MD: Kiki Montiel DO, [id number] Procedure: Colonoscopy Indications: Screening for colorectal malignant neoplasm Providers: Kiki Montiel DO (Doctor), Jocelyn Seay RN (Nurse), Angeles Joyce RN (Nurse) Referring: Sunshine Solano Medicines: Midazolam 6 mg IV, Meperidine 50 mg IV Complications: No immediate complications. Procedure: Pre-Anesthesia Assessment: - Prior to the procedure, a History and Physical was performed, and patient medications and allergies were reviewed. The patient is competent. The risks and benefits of the procedure and the sedation options and risks were discussed with the patient. All questions were answered and informed consent was obtained. Patient identification and proposed procedure were verified by the physician in the pre-procedure area. Mental Status Examination: alert and oriented. Airway Examination: normal oropharyngeal airway and neck mobility. Respiratory Examination: clear to auscultation. CV Examination: normal. Prophylactic Antibiotics: The patient does not require prophylactic antibiotics. Prior Anticoagulants: The patient has taken no anticoagulant or antiplatelet agents. ASA Grade Assessment: II - A patient with mild systemic disease. After reviewing the risks and benefits, the patient was deemed in satisfactory condition to undergo the procedure. The anesthesia plan was to use moderate sedation / analgesia (conscious sedation). Immediately prior to administration of medications, the patient was re-assessed for adequacy to receive sedatives. The heart rate, respiratory rate, oxygen saturations, blood pressure, adequacy of pulmonary ventilation, and response to care were monitored throughout the procedure. The physical status of the patient was re-assessed after the procedure. After I obtained informed consent, the scope was passed under direct vision. Throughout the procedure, the patient's blood pressure, pulse, and oxygen saturations were monitored continuously. The adult colonoscope was introduced through the anus and advanced to the terminal ileum, with identification of the appendiceal orifice and IC valve. The colonoscopy was performed without difficulty. The patient tolerated the procedure well. The quality of the bowel preparation was good. The terminal ileum, ileocecal valve, appendiceal orifice, and rectum were photographed. Findings: The perianal and digital rectal examinations were normal. Pertinent negatives include normal sphincter tone and no palpable rectal lesions. The terminal ileum appeared normal. The entire examined colon appeared normal on direct and retroflexion views. Moderate Sedation: Moderate (conscious) sedation was administered by the nurse and supervised by the endoscopist. The following parameters were monitored: oxygen saturation, heart rate, blood pressure, and response to care. Total physician intraservice time was 30 minutes. Estimated Blood Loss: Estimated blood loss: none. Impression: - The examined portion of the ileum was normal. - The entire examined colon is normal on direct and retroflexion views. - No specimens collected. Recommendation: - Patient has a contact number available for emergencies. The signs and symptoms of potential delayed complications were discussed with the patient. Return to normal activities tomorrow. Written discharge instructions were provided to the patient. - Resume previous diet. - Continue present medications. - Repeat colonoscopy in 10 years for screening purposes. Procedure Code(s): --- Professional --- 87933, Colonoscopy, flexible; diagnostic, including collection of specimen(s) by brushing or washing, when performed (separate procedure) Diagnosis Code(s): --- Professional --- Z12.11, Encounter for screening for malignant neoplasm of colon CPT copyright 2020 [employer]. All rights reserved. The codes documented in this report are preliminary and upon director of hotel operations review may be revised to meet current compliance requirements. Attending Participation: I personally performed the entire procedure. Kiki Montiel DO 10/20/2022 12:13:32 PM This report has been signed electronically. Number of Addenda: 0 Note Initiated On: 10/20/2022 11:49 AM Scope Withdrawal Time 0 hours 9 minutes 9 seconds Total Procedure Duration Time 0 hours 15 minutes 42 seconds [facility] Work Phone: [facility] Work Phone: Radiology Study observation (narrative) [facility] Work Phone: [facility] 10-20-2022 Kiki Montiel DO - 11/06/2022 Patient Name: Joi Madrigal Procedure Date: 10/20/2022 11:21 AM Date of : 1960 Admit Type: Outpatient Site: [place] [address] Ethnicity: Not or Race: White Attending MD: Kiki Montiel DO, [id number] Procedure: Upper GI endoscopy Indications: Heartburn Providers: Kiki Montiel DO (Doctor), Jocelyn Seay RN (Nurse), Angeles Joyce RN (Nurse) Referring: Sunshine Solano Medicines: Midazolam 6 mg IV, Meperidine 50 mg IV, Cetacaine spray Complications: No immediate complications. Procedure: Pre-Anesthesia Assessment: - Prior to the procedure, a History and Physical was performed, and patient medications and allergies were reviewed. The patient is competent. The risks and benefits of the procedure and the sedation options and risks were discussed with the patient. All questions were answered and informed consent was obtained. Patient identification and proposed procedure were verified by the physician in the pre-procedure area. Mental Status Examination: alert and oriented. Airway Examination: normal oropharyngeal airway and neck mobility. Respiratory Examination: clear to auscultation. CV Examination: normal. Prophylactic Antibiotics: The patient does not require prophylactic antibiotics. Prior Anticoagulants: The patient has taken no anticoagulant or antiplatelet agents. ASA Grade Assessment: II - A patient with mild systemic disease. After reviewing the risks and benefits, the patient was deemed in satisfactory condition to undergo the procedure. The anesthesia plan was to use moderate sedation / analgesia (conscious sedation). Immediately prior to administration of medications, the patient was re-assessed for adequacy to receive sedatives. The heart rate, respiratory rate, oxygen saturations, blood pressure, adequacy of pulmonary ventilation, and response to care were monitored throughout the procedure. The physical status of the patient was re-assessed after the procedure. After obtaining informed consent, the endoscope was passed under direct vision. Throughout the procedure, the patient's blood pressure, pulse, and oxygen saturations were monitored continuously. The endoscope was introduced through the mouth, and advanced to the third part of duodenum. The upper GI endoscopy was accomplished without difficulty. The patient tolerated the procedure well. Findings: The nasopharynx was normal. LA Grade B (one or more mucosal breaks greater than 5 mm, not extending between the tops of two mucosal folds) esophagitis with no bleeding was found 39 to 40 cm from the incisors. Mucosa was biopsied with a cold forceps for histology in 4 quadrants at intervals of 1 cm at the gastroesophageal junction. One specimen bottle was sent to pathology. No gross lesions were noted in the entire examined stomach. Biopsies were taken with a cold forceps for histology. No gross lesions were noted in the entire examined duodenum. Biopsies for histology were taken with a cold forceps for evaluation of celiac disease. Moderate Sedation: Moderate (conscious) sedation was administered by the nurse and supervised by the endoscopist. The following parameters were monitored: oxygen saturation, heart rate, blood pressure, and response to care. Total physician intraservice time was 30 minutes. Estimated Blood Loss: Estimated blood loss: none. Impression: - Normal nasopharynx. - LA Grade B reflux esophagitis with no bleeding. Rule out Padilla's esophagus. Biopsied. - No gross lesions in the entire stomach. Biopsied. - No gross lesions in the entire examined duodenum. Biopsied. Recommendation: - Patient has a contact number available for emergencies. The signs and symptoms of potential delayed complications were discussed with the patient. Return to normal activities tomorrow. Written discharge instructions were provided to the patient. - Resume previous diet. - Use Protonix (pantoprazole) 40 mg PO daily for the rest of the patient's life. Procedure Code(s): --- Professional --- 92436, Esophagogastroduodenos copy, flexible, transoral; with biopsy, single or multiple Diagnosis Code(s): --- Professional --- K21.00, Gastro-esophageal reflux disease with esophagitis, without bleeding R12, Heartburn CPT copyright 2020 [employer]. All rights reserved. The codes documented in this report are preliminary and upon director of hotel operations review may be revised to meet current compliance requirements. Attending Participation: I personally performed the entire procedure. Kiki Montiel DO 10/20/2022 12:21:33 PM This report has been signed electronically. Number of Addenda: 0 Note Initiated On: 10/20/2022 11:21 AM Scope Withdrawal Time 0 hours 5 minutes 16 seconds Total Procedure Duration Time 0 h (more content not included)... [facility] Work Phone: Radiology Study observation (narrative) [facility] Work Phone: EGDOrdered By: Kiki byrd 10-20-2022 [facility] Work Phone: No Panel Informationon 10-20 [email or web address]?={[email or web address]} [facility] Work Phone: [email or web address]?={[email or web address]} [facility] Work Phone: [facility] Work Phone: [facility] Work Phone: [facility] Surgical Pathology Depar tmenton 10-20-2022 [facility] Surgical Pathology Department Name JOI MADRIGAL Jr Pathologist: CHAPIN DAVIS M.D., PhD. Date of Procedure: 10/20/2022 Date Received: 10/21/2022 Date Reported 11/07/2022 Submitting Physician: KIKI MONTIEL DO Location: [facility] Copy To/Referring/Attending : SUNSHINE SOLANO, COLD MOLDING PRESS OPERATOR-PLEATING SUPERVISOR Other External # FINAL DIAGNOSIS A. ANTRAL BIOPSY: --GASTRIC MUCOSA, NO SIGNIFICANT PATHOLOGIC FINDINGS --NO EVIDENCE OF HELICOBACTER PYLORI B. DUODENAL BIOPSY: --SMALL BOWEL MUCOSA, NO SIGNIFICANT PATHOLOGIC FINDINGS C. DISTAL ESOPHAGUS BIOPSY: --SQUAMOCOLUMNAR JUNCTIONAL MUCOSA, NEGATIVE FOR INTESTINAL METAPLASIA Electronically Signed Out By CHAPIN DAVIS M.D., PhD./WLI By the signature on this report, the individual or group listed as making the Final Interpretation/Diagnos is certifies that they have reviewed this case. Diagnostic interpretation performed at [facility] [address] [place] [address] Clinical History: GERD Specimens Submitted As: A: ANTRAL BX B: DUODENAL BX C: DISTAL ESOPHAGUS BX Gross Description: A: Received in formalin, labeled with the patient's name and hospital number and antral BX, is a fragment of tamayo, soft tissue measuring 0.1 x 0.1 x 0.1 cm. The specimen is submitted in toto in one cassette. RMP B: Received in formalin, labeled with the patient's name and hospital number and duodenal BX, are 2 fragments of tamayo, soft tissue aggregating to 0.7 x 0.2 x 0.2 cm. The specimen is submitted in toto in one cassette. RMP C: Received in formalin, labeled with the patient's name and hospital number and distal esophagus BX, are multiple fragments of tamayo, soft tissue aggregating to 0.8 x 0.2 x 0.2 cm. The specimen is submitted in toto in one cassette. [facility]/10/27/2022 [facility] Department of Pathology [address] [place] [address] Normal [facility] Comment on above: Performed By: #### U [facility] #### [facility] Surgical Pathology Department [address] [place] [address] Upper GI endoscopyon 023 Upper GI endoscopy PATIENTNAME Patient Name: Joi Madrigal EXAMDATE Procedure Date: 10/20/2022 11:21 AM PATIENTID PATIENTACCOUNTNUM PATIENTDOB Date of : 1960 ADMITTYPE Admit Type: Outpatient PATIENTROOM Site: [place] [address] ETHNICITY Ethnicity: Not or RACE Race: White PROVDR Attending MD: Kiki Montiel DO, [id number] ENDOPROCEDURENAME Procedure: Upper GI endoscopy INDICATION Indications: Heartburn PRIMARYPROVIDER Providers: Kiki Montiel DO (Doctor), Jocelyn Seay, RN (Nurse), Angeles Joyce RN (Nurse) EDREFPROVIDER Referring: Sunshine Solano CURRENT_MEDS Medicines: Midazolam 6 mg IV, Meperidine 50 mg IV, Cetacaine spray COMPLIC Complications: No immediate complications. ENDOPROCEDURETEXT Procedure: Pre-Anesthesia Assessment: - Prior to the procedure, a History and Physical was performed, and patient medications and allergies were reviewed. The patient is competent. The risks and benefits of the procedure and the sedation options and risks were discussed with the patient. All questions were answered and informed consent was obtained. Patient identification and proposed procedure were verified by the physician in the pre-procedure area. Mental Status Examination: alert and oriented. Airway Examination: normal oropharyngeal airway and neck mobility. Respiratory Examination: clear to auscultation. CV Examination: normal. Prophylactic Antibiotics: The patient does not require prophylactic antibiotics. Prior Anticoagulants: The patient has taken no anticoagulant or antiplatelet agents. ASA Grade Assessment: II - A patient with mild systemic disease. After reviewing the risks and benefits, the patient was deemed in satisfactory condition to undergo the procedure. The anesthesia plan was to use moderate sedation / analgesia (conscious sedation). Immediately prior to administration of medications, the patient was re-assessed for adequacy to receive sedatives. The heart rate, respiratory rate, oxygen saturations, blood pressure, adequacy of pulmonary ventilation, and response to care were monitored throughout the procedure. The physical status of the patient was re-assessed after the procedure. After obtaining informed consent, the endoscope was passed under direct vision. Throughout the procedure, the patient's blood pressure, pulse, and oxygen saturations were monitored continuously. The endoscope was introduced through the mouth, and advanced to the third part of duodenum. The upper GI endoscopy was accomplished without difficulty. The patient tolerated the procedure well. FINDING Findings: The nasopharynx was normal. LA Grade B (one or more mucosal breaks greater than 5 mm, not extending between the tops of two mucosal folds) esophagitis with no bleeding was found 39 to 40 cm from the incisors. Mucosa was biopsied with a cold forceps for histology in 4 quadrants at intervals of 1 cm at the gastroesophageal junction. One specimen bottle was sent to pathology. No gross lesions were noted in the entire examined stomach. Biopsies were taken with a cold forceps for histology. No gross lesions were noted in the entire examined duodenum. Biopsies for histology were taken with a cold forceps for evaluation of celiac disease. SEDATION Moderate Sedation: Moderate (conscious) sedation was administered by the nurse and supervised by the endoscopist. The following parameters were monitored: oxygen saturation, heart rate, blood pressure, and response to care. Total physician intraservice time was 30 minutes. EBL Estimated Blood Loss: Estimated blood loss: none. IMPRESS Impression: - Normal nasopharynx. - LA Grade B reflux esophagitis with no bleeding. Rule out Padilla's esophagus. Biopsied. - No gross lesions in the entire stomach. Biopsied. - No gross lesions in the entire examined duodenum. Biopsied. ENDORECOMMENDATION Recommendation: - Patient has a contact number available for emergencies. The signs and symptoms of potential delayed complications were discussed with the patient. Return to normal activities tomorrow. Written discharge instructions were provided to the patient. - Resume previous diet. - Use Protonix (pantoprazole) 40 mg PO daily for the rest of the patient's life. CPT_CODES Procedure Code(s): --- Professional --- 66271, Esophagogastroduodenos copy, flexible, transoral; with biopsy, single or multiple ICD_CODES Diagnosis Code(s): --- Professional --- K21.00, Gastro-esophageal reflux disease with esophagitis, without bleeding R12, Heartburn CODINGSTMT CPT copyright 2020 [employer]. All rights reserved. The codes documented in this report are preliminary and upon director of hotel operations review may be revised to meet current compliance requirements. ATTDRPART Attending Participation: I personally performed the entire proc (more content not included)... Normal [facility] ALPHA-FETOPROTEINon 10-07-19 23 ALPHA-FETOPROTEIN <4 Normal 0 - [address] [facility] Comment on above: Result Comment: AFP testing is performed by chemiluminescent immunoassay using the Siemens [employer]2[place]. Values obtained with different analyte methods cannot be used interchangeably. This test can be used as an adjunct in the diagnosis and monitoring of AFP-producing tumors, including non-seminomatous germ cell tumors and hepatocellular carcinomas. Performed By: #### A FP #### [facility] [address] [place] [address] CANCER AG 125on 10-06-2022 Cancer Ag 125 Qn 6.1 [arb'U]/mL Normal 0.0 - 30.2 formerly [facility] Comment on above: Result Comment: CA 1 25 testing is performed by chemiluminescent immunoassay using the Siemens Atellica. Values obtained with different analytic methods cannot be used interchangeably. . Serum CA 125 measurement is intended for use as an aid in monitoring patients previously treated for ovarian cancer. This assay is not intended for screening or diagnosis of cancer in the general population. The results must not be used as the sole means for clinical diagnosis or patient management decisions. Performed By: #### C A125 #### [facility] [address] [place], [place] CEAon 10-06-2022 CEA 2.9 ug/L Abnormal [facility] Comment on above: Result Comment: CEA testing is performed by chemiluminescent immunoassay using the Siemens [employer]. Values obtained with different analytic methods cannot be used interchangeably. . Serum CEA measurement is intended for use as an aid in the management of patients previously treated for cancer. This assay is not intended for screening or diagnosis of cancer in the general population. The results must not be used as the sole means for clinical diagnosis or patient management decisions. REF VALUES NONSMOKERS 0-2.5 SMOKERS 0-5.0 Performed By: #### C EA #### [facility] [address] [place], [place] C-REACTIVE PROTEINon 023 C-REACTIVE PROTEIN 0.50 mg/dL Normal [facility] Comment on above: Result Comment: REF VALUE < 1.00 Performed By: #### C RP #### [place] [address] CANCER AG 125on 10-05-2022 Lab Specimen Source Normal [facility] Comment on above: Performed By: #### C A125 #### [facility] [address] [place], [place] Performed By: #### A FP #### [facility] [address] [place], [place] Performed By: #### C EA #### [facility] [address] [place], [place] Performed By: #### C RP #### [place] [address] ECG 12 lead (Clinic Performe d)on 09-11-2022 [facility] Work Phone: NSR with T wave abnormality [facility] Work Phone: [facility] Work Phone: TRAVIS-WITHOUT REFLEX TO ENAon 08-03-2022 Nuclear Ab IF (S) [Titer] Negative Normal NEGATIVE [facility] Comment on above: Result Comment: The Antinuclear Antibody (TRAVIS) test was performed using indirect immunofluorescence assay with HEp-2 cells slide. Performed By: #### A NAN2 #### [facility] [address] [place] [address] CBCon 08-02-2022 Erythrocyte distribution width (RBC) [Ratio] 11.9 % Normal 11.5 - 14.5 [facility] Comment on above: Performed By: #### C BC #### [address] [address] Hematocrit (Bld) [Volume fraction] 48.4 % Normal 41.0 - 52.0 [facility] Comment on above: Performed By: #### C BC #### [address] [address] Hemoglobin (Bld) [Mass/Vol] 16.6 g/dL Normal 13.5 - 17.5 [facility] Comment on above: Performed By: #### C BC #### [address] [address] MCHC (RBC) [Mass/Vol] 34.3 g/dL Normal 32.0 - 36.0 [facility] Comment on above: Performed By: #### C BC #### [address] [address] MCV (RBC) [Entitic vol] 94 fL Normal 80 - 100 [facility] Comment on above: Performed By: #### C BC #### [address] [address] Platelets (Bld) [#/Vol] 208 10*3/uL Normal 150 - 450 [facility] Comment on above: Performed By: #### C BC #### [address] [address] RBC 5.17 x10E12/L Normal 4.50 - 5.90 [facility] Comment on above: Performed By: #### C BC #### [address] [address] WBC (Bld) [#/Vol] 7.8 10*3/uL Normal 4.4 - 11.3 [facility] Comment on above: Performed By: #### C BC #### [address] [address] COMPREHENSIVE PANELon 2022 Albumin [Mass/Vol] 4.8 g/dL Normal 3.4 - 5.0 [facility] Comment on above: Performed By: #### C MP #### [place] [id number] ALP [Catalytic activity/Vol] 63 U/L Normal 33 - 136 [facility] Comment on above: Performed By: #### C MP #### [place] [id number] ALT [Catalytic activity/Vol] 38 U/L Normal 10 - 52 [facility] Comment on above: Result Comment: Wen ents treated with Sulfasalazine may generate falsely decreased results for ALT. Performed By: #### C MP #### [place] [id number] Anion gap [Moles/Vol] 10 mmol/L Normal 10 - 20 [facility] Comment on above: Performed By: #### C MP #### [address] [address] AST [Catalytic activity/Vol] 25 U/L Normal 9 - 39 [facility] Comment on above: Performed By: #### C MP #### [address] [address] Bilirubin [Mass/Vol] 0.8 mg/dL Normal 0.0 - 1.2 formerly [facility] Comment on above: Performed By: #### C MP #### [address] [address] Calcium [Mass/Vol] 9.6 mg/dL Normal 8.6 - 10.3 [facility] Comment on above: Performed By: #### C MP #### [place] [id number] Chloride [Moles/Vol] 103 mmol/L Normal 98 - 107 formerly [facility] Comment on above: Performed By: #### C MP #### [address] [address] Creatinine [Mass/Vol] 0.94 mg/dL Normal 0.50 - 1.30 [facility] Comment on above: Performed By: #### C MP #### [address] [address] eGFR MALE >90 Normal >90 [facility] Comment on above: Result Comment: CALC ULATIONS OF ESTIMATED GFR ARE PERFORMED USING THE 2020 CKD-EPI STUDY REFIT EQUATION WITHOUT THE RACE VARIABLE FOR THE IDMS-TRACEABLE CREATININE METHODS. https://jasn.asnjournals.org/content//ASN.61606 [address] Performed By: #### C MP #### [address] [address] Glucose [Mass/Vol] 92 mg/dL Normal 74 - 99 [facility] Comment on above: Performed By: #### C MP #### [address] [address] HCO3 (Bld) [Moles/Vol] 28 mmol/L Normal 21 - 32 [facility] Comment on above: Performed By: #### C MP #### [address] [address] Potassium [Moles/Vol] 4.4 mmol/L Normal 3.5 - 5.3 [facility] Comment on above: Performed By: #### C MP #### [address] [address] Protein [Mass/Vol] 7.2 g/dL Normal 6.4 - 8.2 [facility] Comment on above: Performed By: #### C MP #### [address] [address] Sodium [Moles/Vol] 137 mmol/L Normal 136 - 145 [facility] Comment on above: Performed By: #### C MP #### [address] [address] Urea nitrogen [Mass/Vol] 15 mg/dL Normal 6 - 23 [facility] Comment on above: Performed By: #### C MP #### [address] [address] Lab Specimen Source Normal [facility] Comment on above: Performed By: #### C MP #### [address] [address] Performed By: #### L IPID #### [address] [address] Performed By: #### A NAN2 #### [facility] [address] [place] [address] Performed By: #### C BC #### [address] [address] Performed By: #### P SA #### [address] [address] LIPID PANEL (CORONARY RISK 2 )on 08-02-2022 Cholesterol [Mass/Vol] 193 mg/dL Normal 0 - 199 [facility] Comment on above: Result Comment: . AGE DESIRABLE BORDERLINE HIGH HIGH 0-19 Y 0 - 169 170 - 199 >/= 200 20-24 Y 0 - 189 190 - 224 >/= 225 >24 Y 0 - 199 200 - 239 >/= 240 All ranges are based on fasting samples. Specific therapeutic targets will vary based on patient-specific cardiac risk. . Pediatric guidelines reference:Pediatrics 2011, 128(S5). Adult guidelines reference: NCEP ATPIII Guidelines, LESA 2001, 258:2486-97 . Venipuncture immediately after or during the administration of Metamizole may lead to falsely low results. Testing should be performed immediately prior to Metamizole dosing. Performed By: #### L IPID #### [address] [address] Cholesterol in HDL [Mass/Vol] 48.0 mg/dL Normal [facility] Comment on above: Result Comment: . AGE VERY LOW LOW NORMAL HIGH 0-19 Y < 35 < 40 40-45 ---- 20-24 Y ---- < 40 >45 ---- >24 Y ---- < 40 40-60 >60 . Performed By: #### L IPID #### [address] [address] Cholesterol in LDL [Mass/Vol] 120 mg/dL High 0 - 99 [facility] Comment on above: Result Comment: . NEAR BORD AGE DESIRABLE OPTIMAL HIGH HIGH VERY HIGH 0-19 Y 0 - 109 --- 110-129 >/= 130 ---- 20-24 Y 0 - 119 --- 120-159 >/= 160 ---- >24 Y 0 - 99 100-129 130-159 160-189 >/=190 . Performed By: #### L IPID #### [address] [address] Cholesterol in VLDL [Mass/Vol] 25 mg/dL Normal 0 - 40 [facility] Comment on above: Performed By: #### L IPID #### [address] [address] Cholesterol.total/Chol esterol in HDL [Mass ratio] 4.0 {ratio} Normal [facility] Comment on above: Result Comment: REF VALUES DESIRABLE < 3.4 HIGH RISK > 5.0 Performed By: #### L IPID #### [address] [address] Triglyceride [Mass/Vol] 126 mg/dL Normal 0 - 149 [facility] Comment on above: Result Comment: . AGE DESIRABLE BORDERLINE HIGH HIGH VERY HIGH 0 D-90 D 19 - 174 ---- ---- ---- 91 D- 9 Y 0 - 74 75 - 99 >/= 100 ---- 10-19 Y 0 - 89 90 - 129 >/= 130 ---- 20-24 Y 0 - 114 115 - 149 >/= 150 ---- >24 Y 0 - 149 150 - 199 200- 499 >/= 500 . Venipuncture immediately after or during the administration of Metamizole may lead to falsely low results. Testing should be performed immediately prior to Metamizole dosing. Performed By: #### L IPID #### [address] [address] PROSTATE SPECIFIC AGon 08-02 Prostate specific Ag [Mass/Vol] 1.15 ng/mL Normal 0.00 - 4.00 [facility] Comment on above: Result Comment: The FDA requires that the method used for PSA assay be reported to the physician. Values obtained with different assay methods must not be used interchangeably. This test was performed at [facility] using the PredicSis PSA assay is a two-site immunoenzymatic sandwich assay. The assay is approved for measurement of prostate-specific antigen (PSA)in serum and may be used in conjunction with a digital rectal examination in men 50 years and older as an aid in detection of prostate cancer. 0-Jqqsu-idbkkuens inhibitors (e.g. Proscar, Finasteride, Avodart, Dutasteride and Meredith) for the treatment of BPH have been shown to lower PSA levels by an average of 50% after 6 months of treatment. Performed By: #### P SA #### [place] [address] [place] [address] Vital Signs Date Time Vital Sign Value Performing Clinician Facility 12-26-2024 14:05-0400 Body height 182.[address] Julita Reyes MD Work Phone: [facility] 12-26-2024 14:05-0400 Body mass index (BMI) [Ratio] 27.5 kg/m2 Dr. Julita Reyes MD Work Phone: [facility] 12-26-2024 14:05-0400 Body temperature 98.3 [degF] Dr. Julita Reyes MD Work Phone: [facility] 12-26-2024 14:05-0400 Body weight 92.[address] Julita Reyes MD Work Phone: [facility] 12-26-2024 14:05-0400 Diastolic blood pressure 78 mm[Hg] Dr. Julita Reyes MD Work Phone: [facility] 12-26-2024 14:05-0400 Heart rate 69 /min Dr. Julita Reyes MD Work Phone: [facility] 12-26-2024 14:05-0400 Respiratory rate 18 /min Dr. Julita Reyes MD Work Phone: [facility] 12-26-2024 14:05-0400 SaO2% (BldA) [Mass fraction] 97 % Dr. Julita Reyes MD Work Phone: [facility] 12-26-2024 14:05-0400 Systolic blood pressure 142 mm[Hg] Dr. Julita Reyes MD Work Phone: [facility] 11-05-2024 09:12-0400 Body height 185.4 cm Robe Jackson DO Work Phone: [place] 11-05-2024 09:12-0400 Body mass index (BMI) [Ratio] 26.65 kg/m2 Robe Jackson DO Work Phone: [facility] 11-05-2024 09:12-0400 Body weight 91.63 kg Robe Jackson DO Work Phone: [facility] 11-05-2024 09:12-0400 Diastolic blood pressure 90 mm[Hg] Robe Jackson DO Work Phone: [facility] 11-05-2024 09:12-0400 Heart rate 68 /min Robe Jackson DO Work Phone: [facility] 11-05-2024 09:12-0400 Respiratory rate 16 /min Robe Jackson DO Work Phone: [facility] 11-05-2024 09:12-0400 Systolic blood pressure 140 mm[Hg] Robe Jackson DO Work Phone: [place] 08-06-2023 08:43-0400 Body mass index (BMI) [Ratio] 28.96 kg/m2 Kinza Abreu MD Work Phone: [facility] 08-06-2023 08:43-0400 Body temperature 97.81 [degF] Kinza Abreu MD Work Phone: [facility] 08-06-2023 08:43-0400 Body weight 95.53 kg Kinza Abreu MD Work Phone: [facility] 08-06-2023 08:43-0400 Diastolic blood pressure 82 mm[Hg] Kinza Abreu MD Work Phone: [facility] 08-06-2023 08:43-0400 Heart rate 71 /min Kinza Abreu MD Work Phone: [facility] 08-06-2023 08:43-0400 SaO2% (BldA) [Mass fraction] 92 % Kinza Abreu MD Work Phone: [facility] 08-06-2023 08:43-0400 Systolic blood pressure 140 mm[Hg] Kinza Abreu MD Work Phone: [facility] 10-26-2022 10:40-0400 Body height 181.6 cm Sunshine Solano COLD MOLDING PRESS OPERATOR-PLEATING SUPERVISOR Work Phone: [facility] 10-26-2022 10:40-0400 Body mass index (BMI) [Ratio] 27.92 kg/m2 Sunshine Solano COLD MOLDING PRESS OPERATOR-PLEATING SUPERVISOR Work Phone: [facility] 10-26-2022 10:40-0400 Body weight 92.08 kg Sunshine Solano COLD MOLDING PRESS OPERATOR-PLEATING SUPERVISOR Work Phone: [facility] 10-26-2022 10:40-0400 Diastolic blood pressure 82 mm[Hg] Sunshine Solano COLD MOLDING PRESS OPERATOR-PLEATING SUPERVISOR Work Phone: [facility] 10-26-2022 10:40-0400 Heart rate 77 /min Sunshine Solano COLD MOLDING PRESS OPERATOR-PLEATING SUPERVISOR Work Phone: [facility] 10-26-2022 10:40-0400 SaO2% (BldA) [Mass fraction] 98 % Sunshine Solano COLD MOLDING PRESS OPERATOR-PLEATING SUPERVISOR Work Phone: [facility] 10-26-2022 10:40-0400 Systolic blood pressure 128 mm[Hg] Sunshine Solano COLD MOLDING PRESS OPERATOR-PLEATING SUPERVISOR Work Phone: [facility] 10-18-2022 07:56-0400 Body height 182.8 cm Kiki Montiel DO Work Phone: [facility] 10-18-2022 07:56-0400 Body mass index (BMI) [Ratio] 26.81 kg/m2 Kiki Montiel DO Work Phone: [facility] 10-18-2022 07:56-0400 Body weight 89.6 kg Kiki Montiel DO Work Phone: [facility] 10-16-2022 14:25-0400 Body mass index (BMI) [Ratio] 28 kg/m2 [facility] 10-16-2022 14:25-0400 Body weight 93.75 kg [facility] 10-16-2022 14:01-0400 Body height 182.88 cm [facility] 10-16-2022 14:01-0400 Body temperature 98 [degF] [facility] 10-16-2022 14:01-0400 Diastolic blood pressure 104 mm[Hg] [facility] 10-16-2022 14:01-0400 Heart rate 78 /min [facility] 10-16-2022 14:01-0400 Respiratory rate 14 /min [facility] 10-16-2022 14:01-0400 SaO2% (BldA) [Mass fraction] 96 % [facility] 10-16-2022 14:01-0400 Systolic blood pressure 167 mm[Hg] [facility] 09-11-2022 15:56-0400 Body height 181.6 cm Sunshine Solano APRN-PLEATING SUPERVISOR Work Phone: [facility] 09-11-2022 15:56-0400 Body mass index (BMI) [Ratio] 28.74 kg/m2 Sunshine Solano APRN-PLEATING SUPERVISOR Work Phone: [facility] 09-11-2022 15:56-0400 Body weight 94.8 kg Sunshine Solano APRN-PLEATING SUPERVISOR Work Phone: [facility] 09-11-2022 15:56-0400 Diastolic blood pressure 90 mm[Hg] Sunshine Solano COLD MOLDING PRESS OPERATOR-PLEATING SUPERVISOR Work Phone: [facility] 09-11-2022 15:56-0400 Heart rate 84 /min Sunshine Solano COLD MOLDING PRESS OPERATOR-PLEATING SUPERVISOR Work Phone: [facility] 09-11-2022 15:56-0400 Systolic blood pressure 148 mm[Hg] Sunshine Solano COLD MOLDING PRESS OPERATOR-PLEATING SUPERVISOR Work Phone: [facility] 08-02-2022 08:37-0400 Body height 181.6 cm Sunshine Solano COLD MOLDING PRESS OPERATOR-PLEATING SUPERVISOR Work Phone: [facility] 08-02-2022 08:37-0400 Body mass index (BMI) [Ratio] 27.51 kg/m2 Sunshine Morenod COLD MOLDING PRESS OPERATOR-PLEATING SUPERVISOR Work Phone: [facility] 08-02-2022 08:37-0400 Body weight 90.72 kg Sunshine Solano COLD MOLDING PRESS OPERATOR-PLEATING SUPERVISOR Work Phone: [facility] 08-02-2022 08:37-0400 Diastolic blood pressure 72 mm[Hg] Sunshine Morenod COLD MOLDING PRESS OPERATOR-PLEATING SUPERVISOR Work Phone: [facility] 08-02-2022 08:37-0400 Heart rate 62 /min Sunshine Solano COLD MOLDING PRESS OPERATOR-PLEATING SUPERVISOR Work Phone: [facility] 08-02-2022 08:37-0400 Systolic blood pressure 122 mm[Hg] Sunshine Solano COLD MOLDING PRESS OPERATOR-PLEATING SUPERVISOR Work Phone: [facility] Encounters Encounter Date Encounter Type Care Provider Facility Start: 12-26-2024 Encounter for genera l adult medical examination without abnormal findings Gumaro MEHTA [facility] Start: 12-26-2024 End: 12-26-2024 Patient encounter procedure Gumaro MEHTA -[facility] Work Phone: Start: 12-26-2024 End: 12-26-[address] Julita Reyes MD Work Phone: -[facility] Start: 11-10-2024 End: 11-10-2024 Telephone encounter Robe Jackson DO Work Phone: [facility] (ENT) Start: 11-07-2024 End: 11-10-2024 Telephone encounter Robe Jackson DO Work Phone: [facility] (ENT) Comment on above: CNC surgery needs sc heduled Start: 11-05-2024 End: 11-05-2024 Patient encounter procedure Robe Jackson DO Work Phone: [facility] (ENT) Comment on above: Intranasal mass; Nasal congestion; Chronic sinusitis, unspecified location; Hypertrophy of inferior nasal turbinate; Rhinitis medicamentosa Start: 11-05-2024 End: 11-05-2024 ambulatory ROBE BROOKSEY Facility:[facility] Start: 08-12-2024 ambulatory Bill Moreira Facility:[facility] Start: 06-26-2024 End: 06-26-2024 ambulatory Julita Reyes Facility:[facility] Start: 06-26-2024 End: 06-26-2024 ambulatory Tracivenusezequiel Reyes Facility:[facility] Start: 05-06-2024 End: 05-06-2024 ambulatory Brock Marrero Facility:[facility] Start: 04-23-2024 ambulatory Vijaya Ortegao Facility: [facility] Start: 04-08-2024 End: 04-08-2024 ambulatory Vijaya Ferullo Facility:[facility] Start: 04-08-2024 End: 04-08-2024 ambulatory Vijaya Ferullo Facility:[facility] Start: 02-15-2024 End: 02-15-2024 ambulatory Vijaya Ferullo Facility:[facility] Start: 02-01-2024 End: 02-01-2024 ambulatory Vijaya Ferullo Facility:[facility] Start: 01-08-2024 End: 2024 ambulatory Vijaya Ferullo Facility:[facility] Start: 12-20-[address] Morena Reyes MD Work Phone: [facility] Start: 12-20-[address] Julita Reyes MD Work Phone: [facility] Start: 08-29-2023 End: 08-29-2023 ambulatory [facility] Work Phone: Start: 08-29-2023 End: 08-29-2023 Patient encounter procedure [facility] Work Phone: Start: 08-06-2023 End: 08-06-2023 ambulatory [facility] Ambulatory Start: 08-06-2023 End: 08-06-2023 Encounter for general adult medical examination without abnormal findings [facility] Ambulatory Start: 08-06-2023 End: 08-06-2023 Office outpatient visit 25 minutes Kinza Abreu MD Work Phone: [facility] Comment on above: Encounter for screen ing for malignant neoplasm of prostate (Primary Dx); Healthcare maintenance; Hypogonadism in male; Mild persistent asthma without complication; Hypotestosteronemia Start: 08-06-2023 End: 08-06-2023 Patient encounter status Kinza Abreu MD Work Phone: [facility] Work Phone: Start: 03-06-2023 End: 03-07-2023 ambulatory HELADIO [facility] Start: 11-07-2022 AUDIT Sunshine Solano Work Phone: [facility] Work Phone: Start: 10-26-2022 End: 10-26-2022 ambulatory SUNSHINE Андрей SOLANO [facility] Ambulatory Start: 10-26-2022 End: 10-26-2022 Office outpatient visit 15 minutes Sunshine Solano COLD MOLDING PRESS OPERATOR-PLEATING SUPERVISOR Work Phone: [facility] Comment on above: Epigastric abdominal pain (Primary Dx) Start: 10-20-2022 End: 10-20-2022 [address] Mrs. Sunshine Solano Facility:[id number] Start: 10-20-2022 End: 10-20-2022 Subsequent hospital visit by physician Kiki Montiel DO Work Phone: [facility] Comment on above: Encounter for screen ing for malignant neoplasm of colon; Gastro-esophageal reflux disease without esophagitis; Gastro-esophageal reflux disease with esophagitis, without bleeding; 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 drugs; Allergy status to penicillin Start: 10-16-2022 End: 10-16-2022 Emergency department patient visit [facility] Start: 10-05-2022 End: 10-06-2022 ambulatory SUNSHINE Chiang RUSS [facility] Start: 09-11-2022 End: 09-11-2022 ambulatory SUNSHINE [facility] Ambulatory Start: 09-11-2022 End: 09-11-2022 Office outpatient visit 25 minutes Sunshine Solano COLD MOLDING PRESS OPERATOR-PLEATING SUPERVISOR Work Phone: [facility] Comment on above: Epigastric abdominal pain (Primary Dx); History of esophageal spasm; Encounter for screening for malignant neoplasm of colon Start: 08-02-2022 End: 08-03-2022 ambulatory SUNSHINE Chiang RUSS [facility] Start: 08-02-2022 End: 08-02-2022 Office outpatient new 45 minutes Sunshine Solano COLD MOLDING PRESS OPERATOR-PLEATING SUPERVISOR Work Phone: [facility] Comment on above: Peyronie disease (Pr imary Dx); Hypotestosteronemia; Hypogonadism in male; Family history of lupus erythematosus; Screening cholesterol level Procedures Date Procedure Procedure Detail Performing Clinician Start: 10-26-2022 Follow-up visit Follow-up SUNSHINE SOLANO Start: 10-20-2022 Colonoscopy stoma dx including collj spec spx Sunshine Solano COLD MOLDING PRESS OPERATOR-PLEATING SUPERVISOR Work Phone: Start: 10-20-2022 End: 10-20-2022 Colonoscopy Sunshine Solano Work Phone: Start: 10-20-2022 Esophagoscopy flexib le transoral diagnostic Sunshine Solano COLD MOLDING PRESS OPERATOR-PLEATING SUPERVISOR Work Phone: Start: 10-20-2022 SURGICAL PATHOLOGY RESULTS Kiki Montiel DO Work Phone: Start: 10-16-2022 Plain X-ray of tibia and fibula Start: 10-16-2022 X-ray of both feet Start: 10-05-2022 ALPHA-FETOPROTEIN SUNSHINE SOLANO Start: 10-05-2022 C-reactive protein TERESITA E RUSS Start: 10-05-2022 CANCER ANTIGEN 125 TERESITA E RUSS Start: 10-05-2022 Carcinoembryonic antigen cea SUNSHINE MORENOD Start: 09-11-2022 ECG 12-LEAD SUNSHINE MORENOD Start: 09-11-2022 Ecg routine ecg w/le ast 12 lds w/i&r Sunshine L Russ COLD MOLDING PRESS OPERATOR-PLEATING SUPERVISOR Work Phone: Start: 08-02-2022 TRAVIS WITHOUT REFLEX GABBIE SUNSHINE SOLANO Start: 08-02-2022 CBC panel - Blood by Automated count SUNSHINE SOLANO Start: 08-02-2022 Comprehensive metabo lic 2000 panel - Serum or Plasma SUNSHINE SOLANO Start: 08-02-2022 Lipid panel SUNSHINE SOLANO Start: 08-02-2022 PROSTATE SPECIFIC ANTIGEN SUNSHINE SOLANO Start: 08-02-2022 Lipid 1996 panel - S kem or Plasma Sunshine Solano COLD MOLDING PRESS OPERATOR-PLEATING SUPERVISOR Work Phone: Plan of Treatment Date Care Activity Detail Author Start: 01-14-2035 RSV Vaccine (1 - 1-dose 75+ series) RSV Vaccine (1 - 1-dose 75+ series) [place] Start: 10-20-2032 Screening for malignant neoplasm of colon [facility] Start: 10-16-2032 DTaP/Tdap/Td Vaccines (2 - Td or Tdap) DTaP/Tdap/Td Vaccines (2 - Td or Tdap) [facility] Start: 08-03-2027 Lipid panel [facility] Start: 03-06-2026 Diabetes Screening Diabetes Screening [place] Start: 01-12-2025 Influenza vaccination Influenza Vaccine (Season Ended) [place] Start: 02-07-2024 End: 02-07-2024 Patient encounter procedure 02/07/2024 9:20 AM EDT Office Visit [facility] [address] [facility] [address] [place] [id number] Kinza Abreu MD [address] [facility] [place] [address] [facility] Start: 01-13-2024 Covid-19 Vaccine ( season) Covid-19 Vaccine ( season) [place] Start: 10-21-2023 Screening for malignant neoplasm of colon [place] Start: 08-06-2023 End: 08-05-2024 CBC panel - Blood by Automated count CBC Lab Routine Hypogonadism in male Expected: 08/06/2023 (Approximate), Expires: 08/05/2024 [facility] Work Phone: Comment on above: Expected: 08/06/2023 (Approximate), Expi res: 08/05/2024 Start: 08-06-2023 End: 08-05-2024 Comprehensive metabolic 2000 panel - Serum or Plasma Comprehensive Metabolic Panel Lab Routine Hypogonadism in male Expected: 08/06/2023 (Approximate), Expires: 08/05/2024 [facility] Work Phone: Comment on above: Expected: 08/06/2023 (Approximate), Expi res: 08/05/2024 Start: 08-06-2023 End: 08-05-2024 Lipid 1996 panel - Serum or Plasma Lipid Panel Lab Routine Hypogonadism in male Expected: 08/06/2023 (Approximate), Expires: 08/05/2024 [facility] Work Phone: Comment on above: Expected: 08/06/2023 (Approximate), Expi res: 08/05/2024 Start: 08-06-2023 End: 08-05-2024 Prostate specific Ag [Mass/volume] in Serum or Plasma Prostate Specific Antigen, Screen Lab Routine Encounter for screening for malignant neoplasm of prostate Healthcare maintenance Expected: 08/06/2023 (Approximate), Expires: 08/05/2024 [facility] Work Phone: Comment on above: Expected: 08/06/2023 (Approximate), Expi res: 08/05/2024 Start: 08-06-2023 End: 08-05-2024 Testosterone [Mass/volume] in Serum or Plasma Testosterone Lab Routine Hypogonadism in male Hypotestosteronemia Expected: 08/06/2023 (Approximate), Expires: 08/05/2024 [facility] Work Phone: Comment on above: Expected: 08/06/2023 (Approximate), Expi res: 08/05/2024 Start: 08-06-2023 End: 08-06-2023 Patient encounter procedure 08/06/2023 8:45 AM EDT Office Visit [facility] [address] [place] [id number] Sunshine Solano, COLD MOLDING PRESS OPERATOR-PLEATING SUPERVISOR [address] [facility] [address] [place] [address] [facility] Start: 01-12-2023 Influenza vaccination [facility] Start: 09-11-2022 End: 03-14-2024 Colonoscopy Colonoscopy Endoscopy Routine Encounter for screening for malignant neoplasm of colon Expected: 09/11/2022, Expires: 03/14/2024 [facility] Work Phone: Comment on above: Expected: 09/11/2022, Expires: Start: 09-11-2022 End: 03-14-2024 Esophagogastroduodenoscopy EGD Endoscopy Routine Epigastric abdominal pain History of esophageal spasm Expected: 09/11/2022 (Approximate), Expires: 03/14/2024 [facility] Work Phone: Comment on above: Expected: 09/11/2022 (Approximate), Expi res: 03/14/2024 Start: 08-02-2022 End: 08-03-2023 CBC panel - Blood by Automated count CBC Lab Routine Hypogonadism in male Expected: 08/02/2022 (Approximate), Expires: 08/03/2023 [facility] Work Phone: Comment on above: Expected: 08/02/2022 (Approximate), Expi res: 08/03/2023 Start: 08-02-2022 End: 08-03-2023 Comprehensive metabolic 2000 panel - Serum or Plasma Comprehensive Metabolic Panel Lab Routine Hypotestosteronemia Expected: 08/02/2022 (Approximate), Expires: 08/03/2023 [facility] Work Phone: Comment on above: Expected: 08/02/2022 (Approximate), Expi res: 08/03/2023 Start: 08-02-2022 End: 08-03-2023 Lipid 1996 panel - Serum or Plasma Lipid Panel Lab Routine Screening cholesterol level Expected: 08/02/2022 (Approximate), Expires: 08/03/2023 [facility] Work Phone: Comment on above: Expected: 08/02/2022 (Approximate), Expi res: 08/03/2023 Start: 08-02-2022 End: 08-03-2023 Nuclear Ab [Presence] in Serum by Hep2 substrate TRAVIS Lab Routine Family history of lupus erythematosus Expected: 08/02/2022 (Approximate), Expires: 08/03/2023 [facility] Work Phone: Comment on above: Expected: 08/02/2022 (Approximate), Expi res: 08/03/2023 Start: 08-02-2022 End: 08-03-2023 Prostate specific Ag [Mass/volume] in Serum or Plasma PSA Lab Routine Hypogonadism in male Expected: 08/02/2022 (Approximate), Expires: 08/03/2023 [facility] Work Phone: Comment on above: Expected: 08/02/2022 (Approximate), Expi res: 08/03/2023 Start: 01-12-2022 Influenza vaccination Influenza Vaccine (#1) [facility] Start: 01-14-2010 Pneumococcal Vaccine: 50+ (1 of 1 - PCV) Pneumococcal Vaccine: 50+ (1 of 1 - PCV) [place] Start: 01-14-2010 Shingrix Vaccine (1 of 2) Shingrix Vaccine (1 of 2) [facility] Start: 01-14-2010 Zoster Vaccines (1 of 2) Zoster Vaccines (1 of 2) [facility] Start: 01-14-2005 Prostate specific antigen measurement Prostate Cancer Screening Discussion [place] Start: 01-14-2005 Screening for malignant neoplasm of colon [place] Start: 01-14-1982 DTaP/Tdap/Td Vaccines (1 - Tdap) DTaP/Tdap/Td Vaccines (1 - Tdap) [facility] Start: 01-14-1979 Urine microalbumin profile DTaP,Tdap,Td Vaccine (1 - Tdap) [place] Start: 01-14-1978 Anxiety Screening Anxiety Screening [place] Start: 01-14-1978 COVID-19 Vaccine (#1) COVID-19 Vaccine (#1) [facility] Start: 01-14-1978 Depression Screening Depression Screening [place] Start: 01-14-1978 Diabetes mellitus screening Diabetes Screening [facility] Start: 01-14-1978 Hepatitis C screening Hepatitis C Screening [facility] Start: 01-14-1978 HIV screening HIV Screening [place] Start: 01-14-1961 MMR Vaccines (1 of 1 - Standard series) MMR Vaccines (1 of 1 - Standard series) [facility] Start: 1960 COVID-19 Vaccine (#1) COVID-19 Vaccine (#1) [facility] Start: 1960 HIV screening HIV Screening [facility] Start: 1960 Lipid panel Lipid Panel [facility] Start: 1960 Screening for malignant neoplasm of colon [facility] Start: 1960 Yearly Adult Physical Yearly Adult Physical [facility] CBC W Auto Different ial panel - Blood [facility] Comprehensive metabo lic 2000 panel - Serum or Plasma [facility] Lipid 1996 panel - S kem or Plasma [facility] Patient Education Bruises (Contu sions) ED Abrasion ED Foot Sprain [facility] Work Phone: Patient referral [facility] Work Phone: Prostate specific an tigen measurement [facility] Thyroid stimulating hormone measurement [facility] Immunizations Immunization Date Immunization Notes Care Provider Fa cility 10-16-2022 tetanus toxoid, redu luis alberto diphtheria toxoid, and acellular pertussis vaccine, adsorbed [facility] Payers Date Payer Category Payer Self-pay 2022 Private Health Insurance [id number] 2022 Unknown [id number] 1960 Unknown [id number] [id number]. 2.1245 1960 Unknown [id number] [id number]. 2.1245 1960 Unknown [id number] [id number]. 2.1069 1960 Unknown [id number] [id number]. 2.201 1960 Unknown [id number] 2..[id number]. 2.1244 1960 Unknown [id number] 2.16.840.1.334107.3.579. 2.1244 1960 Unknown [id number] 2.16.840.1.753361.3.579. 2.1244 1960 Unknown [id number] 2.16.840.1.826094.3.579. 2.1244 Unknown [facility] Unknown [id number] [id number]. 2.462 Unknown [id number] [id number]. 2.462 Unknown [id number] 2.16.840.1.401379.3.579. 2.462 Unknown [id number] 2.16.840.1.930794.3.579. 2.462 Unknown [id number] 2.16.840.1.880930.3.579. 2.462 Unknown [id number] 2.16.840.1.451339.3.579. 2.462 Unknown [id number] 2.16.840.1.785740.3.579. 2.462 Unknown [id number] 2.16.840.1.107717.3.579. 2.462 Unknown [id number] 2.16.840.1.885385.3.579. 2.462 Unknown [id number] [id number]. 2.462 Unknown [id number] [id number]. 2.462 Social History Date Type Detail Facility Start: 08-02-2022 End: 04-08-2024 Tobacco smoking status NHIS Never smoked tobacco [facility] Work Phone: Start: 08-02-2022 End: 11-05-2024 Tobacco use and exposure Smokeless tobacco non-user [facility] Work Phone: Start: 08-02-2022 Alcohol intake Lifetime non-d junior (finding) [facility] Work Phone: Start: 08-02-2022 End: 11-05-2024 History of Social function [facility] Work Phone: Start: 08-02-2022 End: 11-05-2024 Tobacco use panel [facility] Work Phone: Start: 1960 Sex Assigned At Not on file [facility] Work Phone: Start: 07-23-2022 End: 08-06-2023 Exposure to SARS-CoV-2 (event) Not sure [facility] Start: 10-16-2022 [facility] Start: 1960 Sex Assigned At Male W [facility] Start: 10-26-2022 End: 08-06-2023 Alcohol intake Current drinker of alcohol (finding) [facility] Work Phone: Start: 11-05-2024 [facility] [place] End: 05-14-1979 History of tobacco use Current smoker [place] End: 05-14-1979 History of tobacco use Cigarette Smoker [place] National Score (1-100), lower number is lower risk 60 [place] Medical Equipment Procedure Code Equipment Code Equipment Origin al Text Equipment Identifier Dates Syringe With Nee dle ([employer] Luer Lock Syr-Needle) 3 mL 23 gauge x 1 1/2 syringe Start: 12-24-2023 Syringe With Nee dle ([employer] Luer Lock Syr-Needle) 3 mL 23 gauge x 1 1/2 syringe Start: 12-24-2023 End: 12-24-2023 Clinical Notes 08-02-2022 to 11-10-2024 Telephone Encounter - Lucius Jimenez - 11/10/2024 3:00 PM EDTTelephone Encounter - Lucius Jimenez - 11/10/2024 3:00 PM EDTTelephone Encounter - Lucius Jimenez - 11/07/2024 3:24 PM EDT Note Date & Type Note Facility 11-10-2024 Telephone encounter Note November 10, 2024 3:00 PM Patient not happy with first available surgery date so he said he will try another provider Lucius Jimenez [place] 11-10-2024 Miscellaneous Notes November 10, 2024 3:00 PM Patient not happy with first available surgery date so he said he will try another provider Lucius Jimenez November 07, 2024 3:24 PM Patient called to ask if I had any idea when his surgery could be scheduled He wants sooner than later.... Please advise Lucius Jimenez documented in this encounter [place] 11-07-2024 Telephone encounter Note November 07, 2024 3:24 PM Patient called to ask if I had any idea when his surgery could be scheduled He wants sooner than later.... Please advise Lucius Jimenez [place] 11-05-2024 Note HNO ID: [id number] Author: ROBE JACKSON, DO Service: ? Author Type: Physician Type: Progress Notes Filed: 11/09/2024 22:29 Note Text: HPI: Joi is a 64 year old male who presents for evaluation of his sinuses and nose. 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 First sinus surgery was about 20 years ago, second surgery was 15 years ago. He believes he has a papilloma in left nasal cavity, prior ENT thought it was a polyp. He is struggling with breathing through his nose at night. He is using Afrin before bed but doesn't think his symptoms are related to rhinitis medicamentosa. He was offered a turbinate surgery but concerned about any packing or worsening of his nasal congestion after the surgery. Nasal congestion in the evening is stress provoking. He has tried oral antibiotics, nasal steroid sprays, nasal antihistamine spray, and nasal saline spray without improvement in his symptoms. No issues tolerating general anesthesia in the past. History reviewed. Current Outpatient Medications Medication Sig Dispense Refill Tadalafil (CIALIS) 5 mg tablet Take 5 mg by mouth once daily. dutasteride (AVODART) 0.5 mg capsule Take 0.5 mg by mouth. omeprazole (PRILOSEC) 20 mg capsule Take 20 mg by mouth. testosterone cypionate (DEPO-TESTOSTERONE) 200 mg/mL injection INJECT 1ML (200MG) INTRAMUSCULARLY EVERY 2 WEEKS FOR HYPOGONADISM. DISCARD THE REMAINDER. fluticasone (FLOVENT) 220 mcg/actuation inhaler USE 1 INHALATION ORALLY TWICE DAILY. RINSE MOUTH WITH WATER AFTER USE TO REDUCE AFTERTASTE AND INCIDENCE OF CANDIDIASIS. DO NOT SWALLOW. Ascorbic Acid 1,000 mg tablet Take 1,000 mg by mouth. cholecalciferol (VITAMIN D3) 400 unit tab Take by mouth once daily. magnesium oxide-magnesium amino acid chelate ([id number]) 133 mg tablet Take 133 mg by mouth. No current facility-administered medications for this visit. ALLERGIES Allergen Reactions Sulfa (Sulfonamide * GI Upset, Shortness of Breath Iodinated Contrast * GI Upset, Other: See Comments Vomiting Penicillins Unknown Unsure PAST SURGICAL HISTORY Procedure Laterality Date APPENDECTOMY HX KNEE SURGERY HX Right SHOULDER SURGERY HX Right SINUS SURGERY HX x2 Social History Tobacco Use Smoking status: Former Current packs/day: 0.00 Types: Cigarettes Quit date: 1979 Years since quittin.5 Smokeless tobacco: Never History reviewed. No pertinent family history. Physical Exam BP 140/90 Pulse 68 Resp 16 Ht 185.4 cm (6' 1) Wt 91.6 kg (202 lb) BMI 26.65 kg/m? General Appearance: Well-developed, well-nourished, no acute distress. Communication: Reasonable historian whose voice is normal. Psych/Mental Status: Normal affect. Head/Face: Normocephalic, without evidence of trauma. Facial muscles appear to be functioning normally. Eyes: Extraocular muscles appear intact. Salivary Glands: Parotid/Gregg's-normal to palpation without evidence of duct abnormality. Submandibular/Lewiston's-without evidence of palpable abnormality and no visible duct lesions. Ears: External ears appear normally formed. Tympanic membranes intact bilaterally. Nose: External nose is grossly normal. Septum midline. There is a thin layer of diffuse papillomatous appearing lesions along inner aspect of left nostril and extending onto nasal septum. Oral Cavity/Oropharynx: The mucous membranes of the pharynx, lips and tongue appear grossly normal. Dentition is unremarkable. Palate and floor of mouth are intact. Neck: There are no masses, adenopathy, or thyromegaly and the trachea is midline. Respiratory: no stridor or wheezing. Reviewed last PCP note ASSESSMENT/PLAN: 1. 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 Nasal congestion - ICD9: 478.19, ICD10: R09.81 3. Chronic sinusitis, unspecified location - ICD9: 473.9, ICD10: J32.9 - nasal endoscopy shows patent sinus cavities, no signs of inflammation, abnormal drainage, or scarring - nasal saline spray or irrigation and topical nasal steroid spray 4. Hypertrophy of inferior nasal turbinate - ICD9: 478.0, ICD10: J34.3 5. Rhinitis medicamentosa - ICD9: 472.0, E945.6, ICD10: J31.0, T48.5X5A - stop nasal decongestant use Discussed options including observation vs surgical intervention with removal of papillomatous appearing lesions in left nasal cavity and bilateral inferior turbinate reduction. Risks and benefits discussed. Will need to stop nasal decongestant spray use or will not get good results. Electronic consent obtained. Office will call to schedule. Procedure: Nasal Endoscopy, bilateral Topical lidocaine and decongestant applied to the nasal cavity. After an adequate time had elapsed, a rigid endoscope was used. Septum midline. Bilateral maxillary and ethmoid sinuses appear (more content not included)... [facility] 11-05-2024 History of Presen t illness Narrative HPI: Joi is a 64 year old male who presents for evaluation of his sinuses and nose. 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 First sinus surgery was about 20 years ago, second surgery was 15 years ago. He believes he has a papilloma in left nasal cavity, prior ENT thought it was a polyp. He is struggling with breathing through his nose at night. He is using Afrin before bed but doesn't think his symptoms are related to rhinitis medicamentosa. He was offered a turbinate surgery but concerned about any packing or worsening of his nasal congestion after the surgery. Nasal congestion in the evening is stress provoking. He has tried oral antibiotics, nasal steroid sprays, nasal antihistamine spray, and nasal saline spray without improvement in his symptoms. No issues tolerating general anesthesia in the past. History reviewed. Current Outpatient Medications Medication Sig Dispense Refill Tadalafil (CIALIS) 5 mg tablet Take 5 mg by mouth once daily. dutasteride (AVODART) 0.5 mg capsule Take 0.5 mg by mouth. omeprazole (PRILOSEC) 20 mg capsule Take 20 mg by mouth. testosterone cypionate (DEPO-TESTOSTERONE) 200 mg/mL injection INJECT 1ML (200MG) INTRAMUSCULARLY EVERY 2 WEEKS FOR HYPOGONADISM. DISCARD THE REMAINDER. fluticasone (FLOVENT) 220 mcg/actuation inhaler USE 1 INHALATION ORALLY TWICE DAILY. RINSE MOUTH WITH WATER AFTER USE TO REDUCE AFTERTASTE AND INCIDENCE OF CANDIDIASIS. DO NOT SWALLOW. Ascorbic Acid 1,000 mg tablet Take 1,000 mg by mouth. cholecalciferol (VITAMIN D3) 400 unit tab Take by mouth once daily. magnesium oxide-magnesium amino acid chelate (PL-YFJG-KRRNBAO) 133 mg tablet Take 133 mg by mouth. No current facility-administered medications for this visit. ALLERGIES Allergen Reactions Sulfa (Sulfonamide * GI Upset, Shortness of Breath Iodinated Contrast * GI Upset, Other: See Comments Vomiting Penicillins Unknown Unsure PAST SURGICAL HISTORY Procedure Laterality Date APPENDECTOMY HX KNEE SURGERY HX Right SHOULDER SURGERY HX Right SINUS SURGERY HX x2 Social History Tobacco Use Smoking status: Former Current packs/day: 0.00 Types: Cigarettes Quit date: 1979 Years since quittin.5 Smokeless tobacco: Never History reviewed. No pertinent family history. Physical Exam BP 140/90 Pulse 68 Resp 16 Ht 185.4 cm (6' 1) Wt 91.6 kg (202 lb) BMI 26.65 kg/m General Appearance: Well-developed, well-nourished, no acute distress. Communication: Reasonable historian whose voice is normal. Psych/Mental Status: Normal affect. Head/Face: Normocephalic, without evidence of trauma. Facial muscles appear to be functioning normally. Eyes: Extraocular muscles appear intact. Salivary Glands: Parotid/Gregg's-normal to palpation without evidence of duct abnormality. Submandibular/Ambrocio's-without evidence of palpable abnormality and no visible duct lesions. Ears: External ears appear normally formed. Tympanic membranes intact bilaterally. Nose: External nose is grossly normal. Septum midline. There is a thin layer of diffuse papillomatous appearing lesions along inner aspect of left nostril and extending onto nasal septum. Oral Cavity/Oropharynx: The mucous membranes of the pharynx, lips and tongue appear grossly normal. Dentition is unremarkable. Palate and floor of mouth are intact. Neck: There are no masses, adenopathy, or thyromegaly and the trachea is midline. Respiratory: no stridor or wheezing. Reviewed last PCP note ASSESSMENT/PLAN: 1. 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 Nasal congestion - ICD9: 478.19, ICD10: R09.81 3. Chronic sinusitis, unspecified location - ICD9: 473.9, ICD10: J32.9 - nasal endoscopy shows patent sinus cavities, no signs of inflammation, abnormal drainage, or scarring - nasal saline spray or irrigation and topical nasal steroid spray 4. Hypertrophy of inferior nasal turbinate - ICD9: 478.0, ICD10: J34.3 5. Rhinitis medicamentosa - ICD9: 472.0, E945.6, ICD10: J31.0, T48.5X5A - stop nasal decongestant use Discussed options including observation vs surgical intervention with removal of papillomatous appearing lesions in left nasal cavity and bilateral inferior turbinate reduction. Risks and benefits discussed. Will need to stop nasal decongestant spray use or will not get good results. Electronic consent obtained. Office will call to schedule. Procedure: Nasal Endoscopy, bilateral Topical lidocaine and decongestant applied to the nasal cavity. After an adequate time had elapsed, a rigid endoscope was used. Septum midline. Bilateral maxillary and ethmoid sinuses appear patent with postsurgical changes. No scarring. There is a thin layer of diffuse papillomatous appearing lesions in left nasal cavity anteriorly on inner aspect of nostril and along septum. Scope was removed and patient tolerated it well. 45 minute total time including preparation, obtaining/reviewing history, exam, interpreting results, ordering, counseling/education, referring/communicating and documentation. Robe Jackson DO documented in this encounter [place] 08-06-2023 History of Presen t illness Narrative Patient is here today for 1 year visit: diabetes, GERD and hypogonadism. Questions and concerns with asthma and insomnia Subjective Patient ID: Joi Madrigal Jr. is a 63 y.o. male who presents for GERD, Pre-diabetes, and Hypogonadism (08/02/22 PSA 1.15). 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 no benefit and had surgery Metformin for antiaginng Blood glucose levels always normal Mild intermittent now mild persistent asthma and some EIA Cough daily and wheezing daily PFT 20 years ago Albuterol needed before sports Would like to start flovent [place] weather is worse v INEZ Casiano was on ambien and benzo but did not like affects Otc diphenhydramine but has some paradoxical affect 20 minutes at a stretch 1030 4 am Sleep study and no apnea never got to deep sleep Pulmonology was seen as teenager Has tried sleep hygiene Not a chin and makes feel worse Review of Systems Objective BP 140/82 (BP Location: Left arm, Patient Position: Sitting) Pulse 71 Temp 36.6 C (97.8 F) Wt 95.5 kg (210 lb 9.6 oz) SpO2 92% BMI 28.96 kg/m Physical Exam Constitutional: Appearance: Normal appearance. HENT: Head: Normocephalic and atraumatic. Eyes: Conjunctiva/sclera: Conjunctivae normal. Pupils: Pupils are equal, round, and reactive to light. Cardiovascular: Rate and Rhythm: Normal rate and regular rhythm. Heart sounds: Normal heart sounds. Pulmonary: Effort: Pulmonary effort is normal. Breath sounds: Normal breath sounds. Lymphadenopathy: Cervical: No cervical adenopathy. Skin: Coloration: Skin is not jaundiced. Neurological: General: No focal deficit present. Mental Status: He is alert and oriented to person, place, and time. Psychiatric: Mood and Affect: Mood normal. Behavior: Behavior normal. Thought Content: Thought content normal. Judgment: Judgment normal. Assessment/Plan Diagnoses and all orders for this visit: Encounter for screening for malignant neoplasm of prostate - Prostate Specific Antigen, Screen; Future Healthcare maintenance - Prostate Specific Antigen, Screen; Future Hypogonadism in male - Comprehensive Metabolic Panel; Future - CBC; Future - Lipid Panel; Future - testosterone cypionate (Depo-Testosterone) 200 mg/mL injection; Inject 1 mL (200 mg) into the muscle every 14 (fourteen) days. - Testosterone; Future Mild persistent asthma without complication - fluticasone (Flovent HFA) 220 mcg/actuation inhaler; Inhale 1 puff 2 times a day. Rinse mouth with water after use to reduce aftertaste and incidence of candidiasis. Do not swallow. Hypotestosteronemia - testosterone cypionate (Depo-Testosterone) 200 mg/mL injection; Inject 1 mL (200 mg) into the muscle every 14 (fourteen) days. - Testosterone; Future documented in this encounter [facility] Work Phone: 03-07-2023 Note Encounter Department : [address] SURG Discharge Summary by Eric Zamudio PA-C at 03/07/2023 10:12 AM Author: SESAR PickardCService: UrologyAuthor Type: Physician Manager Scheduling Filed: 03/07/2023 10:38 AMDate of Service: 03/07/2023 10:12 AMStatus: Signed Calibration Checker: Eric Zamudio PA-C (Physician Manager Scheduling) Related Notes: Original Note by Eric Zamudio PA-C (Physician Manager Scheduling) filed at 03/07/2023 10:27 AM Cosigner: Dhaval Page DO at 03/07/2023 10:58 AM [facility] [place] [address] Discharge Summary [facility] 0 1 2 Patient ID: Joi Madrigal [id number] 63 y.o. 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 Temp Av.9 ?F (36.6 ?C) Min: 97.3 ?F (36.3 ?C) Max: 98.5 ?F (36.9 ?C) Intake/Output Summary (Last 24 hours) at 03/07/2023 1025 Last data filed at 03/07/2023 0550 Gross per 24 hour Hrykol5059.05 ml Whvtyl5252 ml Net-907.95 ml Physical Exam: General appearance: alert, appears stated age, cooperative, and no distress Head: Normocephalic, without obvious abnormality, atraumatic Back: No CVA tenderness Lungs: clear to auscultation bilaterally Heart: regular rate and rhythm, S1, S2 normal, no murmur, click, rub or gallop Abdomen: Soft, nontender, nondistended. +BS. : Incision C/D/I. Prosthesis deflated at bedside. No significant edema or erythema. Otherwise unremarkable exam. Extremities: No erythema, edema, or cyanosis Neurologic: Grossly normal Labs: WBC: Lab Results ComponentValueDate WBC12.0 (A)03/07/2023 Hemoglobin/Hematocrit: Lab Results ComponentValueDate HCT42.110 BMP: Lab Results ComponentValueDate NA135 (A)03/07/2023 K4.010 [id number] CREATININE0.9010 CALCIUM9.010 PT/INR: No results found for: PROTIME, INR PTT: No results found for: APTT Current Discharge Medication List START taking these medications Details senna-docusate (SENOKOT-S) 8.6-50 mg per tabletTake 2 tablets by mouth in the morning and 2 tablets before bedtime. Qty: 120 tablet, Refills: 0 traMADoL (ULTRAM) 50 mg tabletTake 1 tablet (50 mg total) by mouth every 8 hours as needed for Pain for up to 20 doses. Qty: 20 tablet, Refills: 0 Associated Diagnoses: Peyronie's disease CONTINUE these medications which have NOT CHANGED Details dutasteride (AVODART) 0.5 mg capsuleTake 1 capsule (0.5 mg total) by mouth daily. metFORMIN (GLUCOPHAGE-XR) 500 mg 24 hr tabletTake 1 tablet (500 mg total) by mouth daily. omeprazole (PRILOSEC) 40 mg delayed-release capsuleTake 1 capsule (40 mg total) by mouth in the morning and 1 capsule (40 mg total) before bedtime. tadalafiL (CIALIS) 10 mg tabletTake 1 tablet (10 mg total) by mouth daily. Patient Instructions: Go to ER if uncontrolled pain, fevers, chills, nausea/vomiting, shortness of breath, swelling in lower extremities Activity: Ambulate often. No lifting >10 pounds. No strenuous activity. Diet: regular diet Wound Care: Keep area clean and dry. Keep penis pointing cephalad. Good scrotal support at all times. OK to shower and gently pat dry. Do not submerge underwater. Follow-up with Dr. Page at 2 weeks and 4 weeks postop Consults: Internal medicine Procedures Performed AND Treatment Rendered: IPP placement with molding and scrotoplasty Summary of Hospital Stay/ Conclusions at Discharge: Joi Madrigal was admitted 03/06/2023 for planned inflatable penile prosthesis placement with molding and scrotoplasty. Patient tolerated the procedure well no complications occurred. Patient was taken to the floor in good condition with Brody in place postoperatively. Tolerating oral intake overnight. Labs and vitals stable. Elevated BP noted with no history of hypertension, possibly secondary to pain. Currently, patient is comfortable with adequate pain control. Prosthesis was deflated and patient voiding well. All discharge instructions and medications were reviewed. All questions answered. Patient seen and examined, chart reviewed. Electronically signed by; Eric Zamudio PA-C 03/07/2023 [facility] 03-06-2023 Note Encounter Department : [address] SURG Progress Notes by Owen Justin RN at 03/06/2023 6:14 PM Author: SCOTT Vangervice: -Author Type: Registered Nurse Filed: 03/06/2023 6:15 PMDate of Service: 03/06/2023 6:14 PMStatus: Signed Calibration Checker: Owen Justin RN (Registered Nurse) 4 Eyes in 4 Hours Admission/Transfer Wound Evaluation of Pressure Points All pressure points below have been assessed If Pressure injury present, please complete the following: -Location of abnormal finding: none. -Add Pressure Injury to LDA/Wound Flowsheet (Describe and measure wound) -Order Wound Care Consult per pressure injury prevention policy -Enter photo into media (with measuring device and pt. identifier) per policy -If new admission to hospital: Wound RN to create Present on Admission (POA) Wound Note Name of 2nd RN performing assessment: Angeles Carrion RN [facility] 03-06-2023 Note Encounter Department : [facility] Progress Notes by Celsa Gonzalez RN at 03/06/2023 4:33 PM Author: SCOTT Sandhuervice: -Author Type: Registered Nurse Filed: 03/06/2023 4:35 PMDate of Service: 03/06/2023 4:33 PMStatus: Signed Calibration Checker: Celsa Gonzalez RN (Registered Nurse) BP 140/150's/90-104. HR- 70-80's, reported to Estelle FREITAS. Pre-op BP 147/89. May send pt. To floor. [facility] 03-06-2023 Note Encounter Department : [facility] Progress Notes by Celsa Gonzalez RN at 03/06/2023 4:08 PM Author: SCOTT Sandhuervice: -Author Type: Registered Nurse Filed: 03/06/2023 4:12 PMDate of Service: 03/06/2023 4:08 PMStatus: Signed Calibration Checker: Celsa Gonzalez RN (Registered Nurse) Report given to SYLVIA Shin. Alert AND orientated x4. Rates pain 8/10, tolerable as per pt. VSS. Scrotal dressing intact w/scrotal supportAND ice pack. Tolerating fluids well. Patient belongings: [employer] bag w/phone present @ bedside. [facility] 03-06-2023 Note Encounter Department : [facility] Progress Notes by Celsa Gonzalez RN at 03/06/2023 3:34 PM Author: SCOTT Sandhuervice: -Author Type: Registered Nurse Filed: 03/06/2023 3:35 PMDate of Service: 03/06/2023 3:34 PMStatus: Signed Calibration Checker: Celsa Gonzalez RN (Registered Nurse) Patient continues to rate pain 9/10 with little relief. Charge Estelle FREITAS, notified. Will place order's for analgesia. [facility] 03-06-2023 Note Encounter Department : [facility] HANDP by Dhaval Page DO at 03/06/2023 12:00 PM Author: Dhaval Page DOService: UrologyAuthor Type: Physician Filed: 03/06/2023 12:04 PMDate of Service: 03/06/2023 12:00 PMStatus: Signed Calibration Checker: Dhaval Page DO (Physician) UROLOGY HISTORY AND PHYSICAL Name: Joi Madrigal Date/Time of Admission: 03/06/2023 10:25 AM CSN: [id number] Attending Provider: Dhaval Page DO Room/Bed: IR SURGERY/SURGERY : 1960 63 y.o. 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 Desires surgical intervention. Fully counseled and consent granted, signed, and witnessed,. To OR today for IPP placement with modeling, Scrotoplasty. PMH: Past Medical History: Diagnosis Date -Exercise tolerance finding 03/01/2023 Able to walk a flight of stairs w/o cp or sob. No cane or walker. 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 No pertinent family history. SOCHX: Social History Socioeconomic History -Marital status: Tobacco Use -Smoking status: Never -Smokeless tobacco: Never Vaping Use -Vaping Use: Never used Substance and Sexual Activity -Alcohol use: Yes Comment: rare -Drug use: Never SURHX: Past Surgical History: Procedure Laterality Date -APPENDECTOMY -KNEE SURGERY Right -RHINOPLASTY -SHOULDER ARTHROPLASTY Right -WRIST SURGERY Right HOME MEDS: Prior to Admission medications Medication Sig Start Date End Date Taking? Authorizing Provider dutasteride (AVODART) 0.5 mg capsule Take 1 capsule (0.5 mg total) by mouth daily. Yes Historical Provider, metFORMIN (GLUCOPHAGE-XR) 500 mg 24 hr tablet Take 1 tablet (500 mg total) by mouth daily. Yes Historical Provider, omeprazole (PRILOSEC) 40 mg delayed-release capsule Take 1 capsule (40 mg total) by mouth in the morning and 1 capsule (40 mg total) before bedtime. Yes Historical Provider, tadalafiL (CIALIS) 10 mg tablet Take 1 tablet (10 mg total) by mouth daily. Yes Historical Provider, ALL: Allergies Allergen Reactions -Iodinated Contrast Media Nausea And Vomiting -Penicillins Unsure -Sulfa (Sulfonamide Antibiotics) Nausea And Vomiting REVIEW OF SYSTEMS: Constitutional Symptoms no weight loss, fever, night sweats HEENTNo OSORIO/vision changes/hearing difficulties/nasal discharge/throat pain Cardiovascular No chest pain, SOB, PND, orthopnea, or MONET Respiratory No cough, wheeze, pleuritic pain, hemoptysis GI No nausea, vomiting, indigestion, abdominal pain, No diarrhea or constipation. No melena or hematochezia. GUNo foul odor or abnormal color, dysuria, hematuria, hesitancy, retention, nocturia or urgency MSNo weakness, joint pains/swelling, no pain/aches SkinNo easy bruising, rashes, abrasions, or suspicious lesions Neurologic No paresis, paresthesia, or sensory changes PsychNo depression/anxiety/suicidality Objective: VITALS: BP (!) 147/89 Pulse 78 Temp 98.5 ?F (36.9 ?C) Resp (!) 11 Ht 6' 1 (1.854 m) Wt 202 lb (91.6 kg) SpO2 98% BMI 26.65 kg/m? No intake or output data in the 24 hours ending 03/06/23 1201 PHYSICAL EXAM: GeneralWell developed, Well nourished, No acute distress Eyes, Ears, Nose, ThroatNCAT, PERRL, EOMI, conjunctiva normal, moist mucous membranes, No oral exudates, Nose normal Normal range of motion, No tenderness, Supple, No stridor, no thyromegaly, no LAD, no carotid bruit, carotid upstroke equal, thyroid soft/symmetric without nodules orenlargement RespiratoryCTAB, no labored breathing, no wheezes, rhonchi, or crackles, no chest wall tenderness CardiovascularRRR, +S1/S2, No S3/4, No murmurs, No rubs, No gallops, no JVD Gastrointestinal+ BS x 4, Soft, non-tender, non-distended, no masses, no guarding, no rebound, no fluid wave Genitourinary Normal male MusculoskeletalGood range of motion in all major joints, No tenderness to palpation or major deformities noted, no joint swelling/erythema No c/c/e, pulses +2/equal SkinWarm, Dry, No erythema, No rash, no lesions NeurologicalAOx 3, Normal motor function, Normal sensory function, No focal deficits noted PsychiatricAffect normal, normal mood OMENormal LABS: Last CBC w diff Results: Recent Labs Lab 03/06/23 1044 WBC 7.0 HEMOGLOBIN 16.9 HCT 48.9 PLT 191 RBC 5.32 MCHC 34.6 MCH 31.8 RDW 12.6 NEUTROPHILS 63.9 MONOCYTES 7.4 Last BMP Results: Recent Labs Lab 03/06/23 1044 NA 138 K 3.9 CL 104 CO2 25 BUN 12 CREATININE 0.86 GLU 98 CALCIUM 9.5 Last Amylase/Lipase Results No results for input(s): AMYLASE in the last 168 hours. Invalid input(s): LIPASE Other Labs No results found for: PH, PO2, PCO2, XBC1HZB No results for input(s): INR in the last 168 hours. No results for input(s): PTT in the last 168 hours.Last Liver Function Results: No results for input(s): ALT, AST, BILIDIR, ALKPHOS in the last 168 hours. In (more content not included)... [facility] 03-06-2023 Note Encounter Department : [facility] Progress Notes by Beverly Pearce RN at 03/06/2023 11:09 AM Author: SCOTT Zhouervice: -Author Type: Registered Nurse Filed: 03/06/2023 11:10 AMDate of Service: 03/06/2023 11:09 AMStatus: Signed Calibration Checker: Beverly Pearce RN (Registered Nurse) Pre-op assessment complete. IV has been inserted and infusing LR. Antibiotic has been removed from [employer] and hung; to be started in OR. Patient's vital signs have been obtained and are WDL. Patient rates pain 0/10 at this time. Patient has been NPO since 1700 yesterday other than some water today around 1000. Family is at bedside and call ramon is in reach. Post-operative instructions initiated: nausea/vomiting, bleeding, and infection. Clothing: placed in locker Jewelry: ring on right hand Dentures: n/a Hearing Aides: n/a Glasses/Contacts: n/a SCD'S: applied Bilateral Nasal Swabs: n/a Skin Prep Completed: n/a [facility] 10-26-2022 History of Presen t illness Narrative Subjective Patient ID: Joi Madrigal Jr. is a 62 y.o. male who presents for Follow-up (2 week FUV. ). Follow up epigastric pain Coloscopy was negative, repeat in 10 years Upper GI indicates esophagitis, rule out padilla's He report improved symptoms since taking omeprazole. Denies any other acute concerns today Review of Systems Constitutional: Negative for activity change and fever. HENT: Negative. Respiratory: Negative for chest tightness and shortness of breath. Cardiovascular: Negative for chest pain and leg swelling. Gastrointestinal: Negative for abdominal pain, diarrhea, nausea and vomiting. Neurological: Negative for dizziness and light-headedness. Hematological: Does not bruise/bleed easily. Objective BP 128/82 Pulse 77 Ht 1.816 m (5' 11.5) Wt 92.1 kg (203 lb) SpO2 98% BMI 27.92 kg/m Physical Exam Vitals reviewed. Constitutional: Appearance: Normal appearance. He is normal weight. Cardiovascular: Rate and Rhythm: Normal rate and regular rhythm. Pulses: Normal pulses. Pulmonary: Effort: Pulmonary effort is normal. Breath sounds: Normal breath sounds. Abdominal: General: Bowel sounds are normal. Palpations: Abdomen is soft. Tenderness: There is no abdominal tenderness. Skin: General: Skin is warm and dry. Neurological: Mental Status: He is alert and oriented to person, place, and time. Assessment/Plan Diagnoses and all orders for this visit: Epigastric abdominal pain -Improved on Omeprazole, -EGD confirms esophagitis Follow up as needed documented in this encounter [facility] Work Phone: 10-20-2022 Note Patient Name: Joi Madrigal Procedure Date: 10/20/2022 11:21 AM Date of : 1960 Admit Type: Outpatient Site: [facility] 1 Ethnicity: Not or Race: White Attending MD: Kiki Montiel DO, [id number] Procedure: Upper GI endoscopy Indications: Heartburn Providers: Kiki Montiel DO (Doctor), Jocelyn Seay, RN (Nurse), Angeles Joyce RN (Nurse) Referring: Sunshine Solano Medicines: Midazolam 6 mg IV, Meperidine 50 mg IV, Cetacaine spray Complications: No immediate complications. Procedure: Pre-Anesthesia Assessment: - Prior to the procedure, a History and Physical was performed, and patient medications and allergies were reviewed. The patient is competent. The risks and benefits of the procedure and the sedation options and risks were discussed with the patient. All questions were answered and informed consent was obtained. Patient identification and proposed procedure were verified by the physician in the pre-procedure area. Mental Status Examination: alert and oriented. Airway Examination: normal oropharyngeal airway and neck mobility. Respiratory Examination: clear to auscultation. CV Examination: normal. Prophylactic Antibiotics: The patient does not require prophylactic antibiotics. Prior Anticoagulants: The patient has taken no anticoagulant or antiplatelet agents. ASA Grade Assessment: II - A patient with mild systemic disease. After reviewing the risks and benefits, the patient was deemed in satisfactory condition to undergo the procedure. The anesthesia plan was to use moderate sedation / analgesia (conscious sedation). Immediately prior to administration of medications, the patient was re-assessed for adequacy to receive sedatives. The heart rate, respiratory rate, oxygen saturations, blood pressure, adequacy of pulmonary ventilation, and response to care were monitored throughout the procedure. The physical status of the patient was re-assessed after the procedure. After obtaining informed consent, the endoscope was passed under direct vision. Throughout the procedure, the patient's blood pressure, pulse, and oxygen saturations were monitored continuously. The endoscope was introduced through the mouth, and advanced to the third part of duodenum. The upper GI endoscopy was accomplished without difficulty. The patient tolerated the procedure well. Findings: The nasopharynx was normal. LA Grade B (one or more mucosal breaks greater than 5 mm, not extending between the tops of two mucosal folds) esophagitis with no bleeding was found 39 to 40 cm from the incisors. Mucosa was biopsied with a cold forceps for histology in 4 quadrants at intervals of 1 cm at the gastroesophageal junction. One specimen bottle was sent to pathology. No gross lesions were noted in the entire examined stomach. Biopsies were taken with a cold forceps for histology. No gross lesions were noted in the entire examined duodenum. Biopsies for histology were taken with a cold forceps for evaluation of celiac disease. Moderate Sedation: Moderate (conscious) sedation was administered by the nurse and supervised by the endoscopist. The following parameters were monitored: oxygen saturation, heart rate, blood pressure, and response to care. Total physician intraservice time was 30 minutes. Estimated Blood Loss: Estimated blood loss: none. Impression: - Normal nasopharynx. - LA Grade B reflux esophagitis with no bleeding. Rule out Padilla's esophagus. Biopsied. - No gross lesions in the entire stomach. Biopsied. - No gross lesions in the entire examined duodenum. Biopsied. Recommendation: - Patient has a contact number available for emergencies. The signs and symptoms of potential delayed complications were discussed with the patien (more content not included)... PROVATION - 10-20-2022 Note Patient Name: Joi Madrigal Procedure Date: 10/20/2022 11:49 AM Date of : 1960 Admit Type: Outpatient Site: [facility] 1 Ethnicity: Not or Race: White Attending MD: Kiki Montiel DO, [id number] Procedure: Colonoscopy Indications: Screening for colorectal malignant neoplasm Providers: Kiki Montiel DO (Doctor), Jocelyn Seay RN (Nurse), Angeles Joyce RN (Nurse) Referring: Sunshine Solano Medicines: Midazolam 6 mg IV, Meperidine 50 mg IV Complications: No immediate complications. Procedure: Pre-Anesthesia Assessment: - Prior to the procedure, a History and Physical was performed, and patient medications and allergies were reviewed. The patient is competent. The risks and benefits of the procedure and the sedation options and risks were discussed with the patient. All questions were answered and informed consent was obtained. Patient identification and proposed procedure were verified by the physician in the pre-procedure area. Mental Status Examination: alert and oriented. Airway Examination: normal oropharyngeal airway and neck mobility. Respiratory Examination: clear to auscultation. CV Examination: normal. Prophylactic Antibiotics: The patient does not require prophylactic antibiotics. Prior Anticoagulants: The patient has taken no anticoagulant or antiplatelet agents. ASA Grade Assessment: II - A patient with mild systemic disease. After reviewing the risks and benefits, the patient was deemed in satisfactory condition to undergo the procedure. The anesthesia plan was to use moderate sedation / analgesia (conscious sedation). Immediately prior to administration of medications, the patient was re-assessed for adequacy to receive sedatives. The heart rate, respiratory rate, oxygen saturations, blood pressure, adequacy of pulmonary ventilation, and response to care were monitored throughout the procedure. The physical status of the patient was re-assessed after the procedure. After I obtained informed consent, the scope was passed under direct vision. Throughout the procedure, the patient's blood pressure, pulse, and oxygen saturations were monitored continuously. The adult colonoscope was introduced through the anus and advanced to the terminal ileum, with identification of the appendiceal orifice and IC valve. The colonoscopy was performed without difficulty. The patient tolerated the procedure well. The quality of the bowel preparation was good. The terminal ileum, ileocecal valve, appendiceal orifice, and rectum were photographed. Findings: The perianal and digital rectal examinations were normal. Pertinent negatives include normal sphincter tone and no palpable rectal lesions. The terminal ileum appeared normal. The entire examined colon appeared normal on direct and retroflexion views. Moderate Sedation: Moderate (conscious) sedation was administered by the nurse and supervised by the endoscopist. The following parameters were monitored: oxygen saturation, heart rate, blood pressure, and response to care. Total physician intraservice time was 30 minutes. Estimated Blood Loss: Estimated blood loss: none. Impression: - The examined portion of the ileum was normal. - The entire examined colon is normal on direct and retroflexion views. - No specimens collected. Recommendation: - Patient has a contact number available for emergencies. The signs and symptoms of potential delayed complications were discussed with the patient. Return to normal activities tomorrow. Written discharge instructions were provided to the patient. - Resume previous diet. - Continue present medications. (more content not included)... PROVATION - 09-11-2022 History of Presen t illness Narrative Subjective Patient ID: Joi Madrigal Jr. is a 62 y.o. male who presents for Heartburn (Last colonoscopy was 10 years ago - acid reflux has been going on 3-4 months). Has always had some heartburn has worsened over the last 3 years. Happens in like episode, unable to identify a cause. Denies any cardiac sx, no CP, dizziness, or diaphoresis. Is due for Colonoscopy Has history of esophageal spasm Burning, starts in epigastric region and the moves up Feels better with cold liquids He is concerned for cardiac disease Would like screening colonoscopy and EGD, concern for esophageal disease Review of Systems Constitutional: Negative for activity change, diaphoresis and fever. Eyes: Negative for visual disturbance. Respiratory: Negative for cough, chest tightness and wheezing. Cardiovascular: Negative for chest pain, palpitations and leg swelling. Gastrointestinal: Positive for abdominal pain (epigastric region). Negative for blood in stool, diarrhea, nausea and vomiting. Genitourinary: Negative for difficulty urinating. Musculoskeletal: Negative. Skin: Negative. Neurological: Negative for dizziness, light-headedness and headaches. Objective BP 148/90 (Patient Position: Sitting) Pulse 84 Ht 1.816 m (5' 11.5) Wt 94.8 kg (209 lb) BMI 28.74 kg/m Physical Exam Constitutional: Appearance: Normal appearance. He is normal weight. Cardiovascular: Rate and Rhythm: Normal rate and regular rhythm. Pulses: Normal pulses. Pulmonary: Effort: Pulmonary effort is normal. Breath sounds: Normal breath sounds. Abdominal: General: Bowel sounds are normal. There is no distension. Palpations: Abdomen is soft. There is no mass. Tenderness: There is no abdominal tenderness. Musculoskeletal: Right lower leg: No edema. Left lower leg: No edema. Skin: General: Skin is warm and dry. Neurological: Mental Status: He is alert and oriented to person, place, and time. Assessment/Plan Diagnoses and all orders for this visit: Epigastric abdominal pain - ECG 12 lead (Clinic Performed) - EGD; Future - If GI work up is negative will pursue cardiac testing; echo and stress test History of esophageal spasm - EGD; Future Encounter for screening for malignant neoplasm of colon - Colonoscopy; Future documented in this encounter [facility] Work Phone: 08-02-2022 History of Presen t illness Narrative Subjective Patient ID: Joi Madrigal Jr. is a 62 y.o. 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). Well Adult Physical Patient here for a comprehensive physical exam.The patient reports no problems Do you take any herbs or supplements that were not prescribed by a doctor? yes Are you taking calcium supplements? no Are you taking aspirin daily? 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 HENT: Negative. Respiratory: Negative for chest tightness, shortness of breath and wheezing. Cardiovascular: Negative for chest pain, palpitations and leg swelling. Gastrointestinal: Negative for abdominal pain, constipation, diarrhea, nausea and vomiting. Endocrine: Negative. Genitourinary: Negative for difficulty urinating, penile pain, penile swelling and testicular pain. Musculoskeletal: Negative. Negative for arthralgias and myalgias. Skin: Negative. Negative for color change. Neurological: Negative for dizziness, numbness and headaches. Hematological: Does not bruise/bleed easily. Psychiatric/Behavioral: Negative. Objective BP 122/72 (Patient Position: Sitting) Pulse 62 Ht 1.816 m (5' 11.5) Wt 90.7 kg (200 lb) BMI 27.51 kg/m Physical Exam Constitutional: General: He is not in acute distress. Appearance: Normal appearance. He is normal weight. HENT: Head: Normocephalic. Eyes: Conjunctiva/sclera: Conjunctivae normal. Pupils: Pupils are equal, round, and reactive to light. Cardiovascular: Rate and Rhythm: Normal rate and regular rhythm. Pulses: Normal pulses. Pulmonary: Effort: Pulmonary effort is normal. Breath sounds: Normal breath sounds. Abdominal: General: Bowel sounds are normal. Palpations: Abdomen is soft. Tenderness: There is no abdominal tenderness. Musculoskeletal: General: Normal range of motion. Cervical back: Normal range of motion. Skin: General: Skin is warm and dry. Neurological: Mental Status: He is alert and oriented to person, place, and time. Assessment/Plan Diagnoses and all orders for this visit: Peyronie disease - Referral to Urology; Future Hypotestosteronemia - testosterone cypionate (Depo-Testosterone) 200 mg/mL injection; Inject 1 mL (200 mg) into the shoulder, thigh, or buttocks every 14 (fourteen) days. - Referral to Urology; Future - Comprehensive Metabolic Panel; Future Hypogonadism in male - testosterone cypionate (Depo-Testosterone) 200 mg/mL injection; Inject 1 mL (200 mg) into the shoulder, thigh, or buttocks every 14 (fourteen) days. - Referral to Urology; Future - CBC; Future - PSA; Future Family history of lupus erythematosus - TRAVIS; Future Screening cholesterol level - Lipid Panel; Future documented in this encounter [facility] Work Phone: 08-02-2022 Instructions ANTONIETTA Murphy - 08/02/2022 8:45 AM EDT Follow heart healthy diet Follow up in 1 year or as needed documented in this encounter [facility] Work Phone: Evaluation note Diagnosis Epigastric abdominal pain- Primary Abdominal pain, epigastric History of esophageal spasm Encounter for screening for malignant neoplasm of colon documented in this encounter [facility] Work Phone: Evaluation noteNo assessment information available [facility] Work Phone: Evaluation note* Diagnosis Epigastric abdominal pain- Primary Abdominal pain, epigastric documented in this encounter [facility] Work Phone: Evaluation note* Diagnosis Encounter for screening for malignant neoplasm of colon Gastro-esophageal reflux disease without esophagitis Gastro-esophageal reflux disease with esophagitis, without bleeding 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 drugs Allergy status to penicillin documented in this encounter [facility] Work Phone: Evaluation note* Diagnosis Encounter for screening for malignant neoplasm of prostate- Primary Healthcare maintenance Hypogonadism in male Mild persistent asthma without complication Hypotestosteronemia documented in this encounter [facility] Work Phone: Evaluation note* Diagnosis Peyronie disease- Primary Peyronie's disease Hypotestosteronemia Hypogonadism in male Family history of lupus erythematosus Family history of other condition Screening cholesterol level Screening for lipoid disorders documented in this encounter [facility] Work Phone: Evaluation note* Diagnosis Intranasal mass Swelling, mass, or lump in head and neck Nasal congestion Other diseases of nasal cavity and sinuses Chronic sinusitis, unspecified location Hypertrophy of inferior nasal turbinate Hypertrophy of nasal turbinates Rhinitis medicamentosa Chronic rhinitis [place] [facility] [place] [facility] Diagnosis Onset Date Resolution Status Admit Date Annual physical exam acute 2024 1:58pm [facility] Work Phone: Reason for referral (narrative)* Consultation (Routine) - Pending Review Specialty Diagnoses / Procedures Referred By Arsh dsouza Referred To Contact Urology Diagnoses Peyronie disease Hypotestosteronemia Hypogonadism in male Procedures WA OFFICE/OUTPATIENT NEW HIGH MDM 60-74 MINUTES Sunshine Solano APRN-CNP [address] [facility], [place] [address] Referral ID Status Reason Start Date Expiration Date Visits Requested Visits Authorized [id number] Pending Review Specialty Services Required 08/02/2022 01/29/2023 1 1 [facility] Work Phone: Reason for referral (narrative)No reason for referral information [facility] Work Phone: Reason for Referral Specialty Diagnoses / Procedures Referred By Arsh dsouza Referred To Contact Gastroenterology Diagnoses Epigastric abdominal pain History of esophageal spasm Procedures EGD Sunshine Solano APRN-SHIMON [address] [facility], [place] [id number] Referral ID Status Reason Start Date Expiration Date V isits Requested Visits Authorized [id number] Authorized 09/11/2022 03/10/2023 1 1 Specialty Diagnoses / Procedures Referred By Arsh t Referred To Contact Gastroenterology Diagnoses Encounter for screening for malignant neoplasm of colon Procedures Colonoscopy Sunshine Solano, COLD MOLDING PRESS OPERATOR-PLEATING SUPERVISOR [address] [facility], [address] [place] [address] Referral ID Status Reason Start Date Expiration Date V isits Requested Visits Authorized [id number] Authorized 09/11/2022 03/10/2023 1 1 Specialty Diagnoses / Procedures Referred By Contac t Referred To Contact Diagnoses Epigastric abdominal pain Procedures ECG 12 lead (Clinic Performed) Sunshine Solano Андрей, COLD MOLDING PRESS OPERATOR-PLEATING SUPERVISOR [address] [facility], [address] [place] [address] Referral ID Status Reason Start Date Expiration Date V isits Requested Visits Authorized [id number] Authorized 09/11/2022 03/10/2023 1 1 Chief Complaint and Reason for Visit Chief Complaint FALL Chief Complaint Admit Date 6 M FU December 26, 2024 1: 58pm Reason for Visit Admit Date Annual physical exam December 26, 2024 1 :58pm Advance Directives No Advanced Directives Records Found Advance Directive Response Recorded Date/ Time Living Will No October 16, 2022 2 :26pm Power of Joy Loading Machine Operator No October 16, 2022 2:26pm Summary Purpose Family History No Family History Records Found Relationship Condition Age at Onset Recorded Date/T nina father Myocardial infarction 60 Cardiac disease Unknown brother Myocardial infarction 36 Additional Source Comments Reason for Visit (unrecogniz ed section and content) Reason Comments Heartburn Last colonoscopy was 10 years ago - acid reflux has been going on 3-4 months Specialty Diagnoses / Procedures Referred By Contac t Referred To Contact Diagnoses Epigastric abdominal pain Procedures ECG 12 lead (Clinic Performed) Sunshine Solano Андрей, COLD MOLDING PRESS OPERATOR-PLEATING SUPERVISOR [address] [facility], [address] [place] [address] Referral ID Status Reason Start Date Expiration Date V isits Requested Visits Authorized [id number] Authorized 09/11/2022 03/10/2023 1 1 Reason Comments Follow-up 2 week FUV. 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 Marisa Villanueva DO Emergency Provider Active RUSS GONSALEZ Primary Care Provider Active Surgical Assist Relationship Specialty Start Date End Date Sunshine Solano, COLD MOLDING PRESS OPERATOR-PLEATING SUPERVISOR [address] [facility], [facility] [address] [place] [address] PCP - General Family Medicine 08/01/22 Surgical Assist Relationship Specialty Start Date End Date Sunshine Solano, COLD MOLDING PRESS OPERATOR-PLEATING SUPERVISOR [address] [facility], [address] [place] [id number] PCP - General Family Medicine 08/01/22 Surgical Assist Relationship Specialty Start Date End Date Kinza Abreu MD [address] [facility], [address] [place] [id number] PCP - General Family Medicine 07/23/23 Team Status: Active Member Role Status Dates Dr. Kinza Abreu MD Primary Care Provider Active Team Status: Inactive Member Role Status Dates Dr. Kinza Aberu MD Primary Care Prov ider, Attending Provider, Referring Provider Active Surgical Assist Relationship Specialty Start Date End Date Sunshine Solano, COLD MOLDING PRESS OPERATOR-PLEATING SUPERVISOR [address] [facility], [address] [place] [address] PCP - General Family Medicine 08/01/22 Surgical Assist Relationship Specialty Start Date End Date Julita Reyes MD [address] [place] [phone] PCP - General Internal Medicine 11/05/24 Surgical Assist Relationship Specialty Start Date End Date Julita Reyes MD [address] [place] [phone] PCP - General Internal Medicine 11/05/24 Surgical Assist Relationship Specialty Start Date End Date Julita Reyes MD [address] [place] [phone] PCP - General Internal Medicine 11/05/24 Team Status: Active Member Role/Relationship Status Dates Dr. Julita Reyes MD Primary Care Provider Active Team Status: Inactive Member Role/Relationship Status Dates Gumaro MEHTA PA Attending Provider Active St art: December 26, 2024 End: December 26, 2024 Dr. Julita Reyes MD Primary Care Provider Active Start: December 26, 2024 End: December 26, 2024 Dr. Julita Reyes MD Referring Provider Active Start: December 26, 2024 End: December 26, 2024 Goals (unrecognized section and content) Goals may be documented in a n alternate sectionGoals may be documented in an alternate sectionGoals may be documented in an alternate section (unrecognized sect ion and content) No Status Records FoundNo Status Records FoundNo Status Records FoundNo Status Records FoundNo Status Records FoundNo Status Records FoundNo Status Records Found INFORMATION SOURCE (unrecogn ized section and content) DATE CREATED AUTHOR 10/23/2022 [facility] DATE CREATED AUTHOR AUTHOR'S ORGANIZ ATION 11/08/2022 [facility] DATE CREATED AUTHOR AUTHOR'S ORGANIZ ATION 11/09/[address] [facility] DATE CREATED AUTHOR AUTHOR'S ORGANIZ ATION 04/03/2023 [facility] DATE CREATED AUTHOR AUTHOR'S ORGANIZ ATION 08/31/2023 [facility] DATE CREATED AUTHOR AUTHOR'S ORGANIZ ATION 11/11/2024 [facility] DATE CREATED AUTHOR AUTHOR'S ORGANIZ ATION 12/28/2024 [facility] Source Comments (unrecognize d section and content) In the event this informatio n is protected by the Federal Confidentiality of Alcohol and Drug Abuse Patient Records regulations: The Federal rules restrict any use of the information to criminally investigate or prosecute any alcohol or drug abuse patient.[place] the event this information is protected by the Federal Confidentiality of Alcohol and Drug Abuse Patient Records regulations: The Federal rules restrict any use of the information to criminally investigate or prosecute any alcohol or drug abuse patient.[place] the event this information is protected by the Federal Confidentiality of Alcohol and Drug Abuse Patient Records regulations: The Federal rules restrict any use of the information to criminally investigate or prosecute any alcohol or drug abuse patient.[place] FOR RECORDS PERTAINING TO PATIENTS WHO ARE OR HAVE BEEN ENROLLED IN A CHEMICAL DEPENDENCY/SUBSTANCEABUSE PROGRAM, SOME INFORMATION MAY BE OMITTED. This clinical summary was aggregated from multiple sources. Caution should be exercised in using it in the provision of clinical care. This summary normalizes information from multiple sources, and as a consequence, information in this document may materially change the coding, format and clinical context of patient data. In addition, data may be omitted in some cases. CLINICAL DECISIONS SHOULD BE BASED ON THE PRIMARY CLINICAL RECORDS. [facility]. provides no warranty or guarantee of the accuracy or completeness of information in this document.
[2025-01-01 13:08] LABS: Testosterone, % Free 2.90 % (1.50-4.20); Testosterone, Free 40.80 ng/dL (5.00-21.00)
== END | disposition home or self-care (01) ==
PROVIDERS: PCP Internal Medicine; Referring Provider Physician Assistant; Visit Provider Physician Assistant
DX: Z00.00 Encounter for general adult medical examination without abnormal findings (principal); E29.1 Testicular hypofunction
CPT/HCPCS: 36415; 80053; 80061; 84153; 84402; 84403; 84443; 85025; G0103

== ENCOUNTER → 2025-03-09 | Outpatient (CLI) | payer SELFPAY ==
[2025-03-09 12:17] LABS: SERUM TEARS COLLECTION SPECIMEN PROCESSED
--- OUTSIDE RECORDS SUMMARY | 2025-03-09 13:29 | XMS RPT_ITS | CCD ---
Author Organization [facility] Inform ion Partnership [facility] Care Team Providers Care Fire Control Technician B Name Role Phone [place] HOST/HOSTESS RESTAURANT-Sunshine ROBINS Primary Care Provider [phone] RUSS, SUNSHINE Chiang Primary Care Unavailable RUSS, SUNSHINE Chiang Primary Care Unavailable Russ, Sunshine Chiang Unavailable Unavailable Unavailable Dallas, Mrs. Sunshine Damico Referring Unavailabl e Thomae, Dr. Kiki Chase Admitting Unavailable Thomae, Dr. Kiki Chase Attending Unavailable Russ, Mrs. Sunshine Damico Primary Care Unavailabl e MEZU, HELADIO DARLING Consulting Unavailable DHAVAL PAGE Attending Unavailable DHAVAL PAGE Admitting Unavailable Kinza Abreu MD Primary Care Provider RUSS, SUNSHINE Chiang Attending Unavailable RUSS, SUNSHINE Chiang Primary Care Unavailable KINZA ABREU Attending Unavailable KINZA ABREU Primary Care Unavailable SUNSHINE SOLANO Attending Unavailable SUNSHINE SOLANO Primary Care Unavailable RUSSSUNSHINE Referring Unavailable RUSSSUNSHINE Attending Unavailable SUNSHINE SOLANO Primary Care Unavailable Julita Reyes MD Primary Care Provider ROBE JACKSON Attending Unavailable SELF Referring Unavailable JULITA REYES Primary Care Unavailable Gumaro Ordoñez Attending Provider [phone] Julita Reyes MD Primary Care Provider Dr. Julita Reyes MD Referring Provider Gumaro Ordoñez Referring Provider [phone] Vijaya Barraza Attending Unavailable Vijaya Barraza Referring Unavailable Ferullo, Vijaya Primary Care Unavailable Ferullo, Vijaya Primary Care Unavailable Ferullo, Vijaya Attending Unavailable Ferullo, Vijaya Referring Unavailable Gumaro Gonzales Attending Unavailable Oleghe, Efewongbe Primary Care Unavailable Oleghe, Efewongbe Referring Unavailable Oleghe, Efewongbe Primary Care Unavailable Bill Moreira Attending Unavailable Bill Moreira Referring Unavailable Oleghe, Efewongbe Primary Care Unavailable Oleghe, Efewongbe Attending Unavailable Oleghe, Efewongbe Referring Unavailable WaytGumaro Attending Unavailable Wayt, Gumaro Referring Unavailable Ferullo, Vijaya Primary Care Unavailable Ferullo, Vijaya Primary Care Unavailable Ferullo, Vijaya Attending Unavailable Wayt, Gumaro Referring Unavailable Oleghe, Efewongbe Primary Care Unavailable Wayt, Gumaro Attending Unavailable Oleghe, Efewongbe Attending Unavailable Ferullo, Vijaya Referring Unavailable Brock Marrero Attending Unavailable Ferullo, Ivjaya Referring Unavailable Ferullo, Vijaya Primary Care Unavailable Ferullo, Vijaya Primary Care Unavailable Gumaro Gonzales Attending Unavailable Ferullo, Vijaya Referring Unavailable Kinza Terry Attending Unavailable Ferullo, Vijaya Primary Care Unavailable MARKUS DUARTE MD Attending Unavailable Allergies Allergy Classification Reported Allergen(s) Allergy Type Date of Onset Reaction(s) Facility (9 sources) Penicillins; Translations: [PENICILLINS] Propensity to adverse reactions 3 Unknown [facility] (12 sources) Sulfonamides (Antibiotic); Translations: [SULFA (SULFONAMIDE ANTIBIOTICS)] Propensity to adverse reactions 3 Shortness of breath, Nausea And Vomiting, GI Upset [facility] Work Phone: (4 sources) Penicillins Allergy to substance 3 Other [facility] Comment on above: FAMILY HX (4 sources) Sulfonamides (Antibiotic) Propensity to adverse reactions 3 Nausea/Vom/[facility] (4 sources) Gadolinium-MRI Contrast Medium Propensity to adverse reactions 3 Nausea/Vom/[facility] Comment on above: DYE (9 sources) Iodinated Contrast Media; Translations: [IODINATED CONTRAST MEDIA] Propensity to adverse reactions 3 Other, Nausea And Vomiting, GI Upset, Other: See Comments [facility] (3 sources) Penicillins Drug Intolerance 3 Unknown [facility] (1 source) Penicillins Drug allergy (disorder) 5 [facility] (1 source) Sulfonamides (Antibiotic) Drug allergy (disorder) 5 [facility] (1 source) Gadolinium-MRI Contrast Medium Drug allergy (disorder) 5 [facility] Medications Current Medications Medication Drug Class(es) [...] List Cleanup) dutasteride 0.5 mg oral capsule (17 sources) 5-alpha Reductase Inhibitor Start: 06-02-2022 End: 12-26-2024 take 1 capsule by mouth once daily Dutasteride 0.5 mg capsule Active 0.5 mg PO DAILY 90 1 December 26, 2024 3:04pm 120 actuat fluticasone propionate 0.22 mg/actuat metered [...] Fluticasone Propionate 220 mcg/actuation HFA aerosol inhaler (4 sources) Start: 11-05-2024 Fluticasone Propionate 220 mcg/actuation HFA aerosol inhaler Active 1 NMA INHALATION TWICE A DAY 12 2 November 05, 2024 4:07pm Start: 12-21-2023 End: 11-05-2024 Fluticasone Propionate 220 m cg/actuation HFA aerosol inhaler Discontinued 1 NMA INHALATION TWICE A DAY 04 14December 21, 2023 12:00am November 05, 2024 4:07pm magnesium amino acid chelate 133 mg oral tablet (8 sources) magnesium oxide- magnesium amino acid chelate (DN-MUSA-WRYNHSO) 133 mg tablet Take 133 mg by mouth. Active omeprazole 20 mg delayed release oral capsule (15 sources) Proton Pump Inhibitor Start: 02-20-20 End: 12-27-19 take 1 capsule by mouth twice daily Omeprazole 20 mg capsule,delayed release(DR/EC) Active 20 mg PO TWICE A DAY 180 December 26, 2024 3:04pm Start: 11-07-2022 take 1 capsule by mo [facility] twice daily Omeprazole 20 MG Oral Capsule Delayed Release Take 1 capsule twice daily Quantity: 180 Refills: 3 Ordered: 07-Nov-2022 Kiki Montiel DO Start : 07-Nov-2022 Active take 1 tablet by ben twice daily omeprazole OTC (PriLOSEC OTC) 20 mg EC tablet Take 1 tablet (20 mg) by mouth 2 times a day. Do not crush, chew, or split. 0 Active tadalafil 5 mg oral tablet (17 sources) Phosphodiesterase 5 Inhibitor Start: 04-27-2023 End: 12-26-2024 take 1 tablet by mouth once daily Tadalafil (Cialis) 5 mg tablet Active 5 mg PO DAILY 90 December 26, 2024 3:04pm Start: 06-06-2022 End: 03-30-2023 take 1 tablet by mouth once daily tadalafil (Cialis) 5 mg tablet Take 1 tablet (5 mg) by mouth once daily. 0 06/06/2022 03/30/2023 Discontinued (Reorder) 1 ml testosterone cypionate 200 mg/ml injection (20 sources) Androgen Start: 2024 End: 12-26-2024 inject 200 mg by intramuscular injection every other week Testosterone Cypionate (Depo-Testosterone) 200 mg/mL oil Active 200 mg IM every 2 weeks 10 December 26, 2024 4:03pm Hypogonadism hypogonadism Start: 12-20-2023 End: 12-24-2023 inject 200 mg by intramuscular injection every other week Testosterone Cypionate 200 mg/mL kit Discontinued 200 mg IM every 2 weeks 1 December 24, 2023 9:21am December 24, 2023 12:15pm [...] hydrochloride 500 mg extended release oral tablet (13 sources) Biguanide Start: 09-14-2022 End: 12-26-2024 take [...] Active tamsulosin hydrochloride 0.4 mg oral capsule (4 sources) alpha-Adrenergic Juan Francisco Start: 02-01-2024 End: 04-08-2024 take 1 capsule by mouth at bedtime Tamsulosin 0.4 mg capsule Discontinued 0.4 mg PO AT BEDTIME 90 February 01, 2024 12:00am April 08, 2024 9:58am Problems Active Problems Problem Classification Problem Date Documented Da te Episodic/Chronic Administrative/social admission (2 sources) First encounter by subject; Translations: [Persons encountering health services in other specified circumstances] 12-20-2023 Episodic Allergic reactions (2 sources) Allergy status to penicillin; Translations: [Allergy to penicillin] Onset: 3 11-08-2022 Episodic Asthma (5 sources) Uncomplicated mild persistent asthma; Translations: [Mild persistent asthma, uncomplicated] Onset: 4 08-06-2023 Chronic Esophageal disorders (7 sources) Gastro-esophageal reflux disease without esophagitis; Translations: [Gastroesophageal reflux disease without esophagitis] Onset: 3 Chronic Esophageal disorders (1 source) Esophagitis; Translations: [Esophagitis, unspecified] Episodic Hyperplasia of prostate (3 sources) Benign prostatic hyperplasia; Translations: [Benign prostatic hyperplasia without lower urinary tract symptoms] 06-26-2024 Chronic Malaise and fatigue (4 sources) Chronic fatigue, unspecified; Translations: [Chronic fatigue, unspecified] Onset: 3 Chronic Osteoarthritis (2 sources) Osteoarthritis of joint of right shoulder region; Translations: [Primary osteoarthritis, right shoulder] 05-06-2024 Chronic Other aftercare (1 source) 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; Translations: [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] Onset: 3 Episodic Other aftercare (1 source) Long-term current use of oral hypoglycemic medication; Translations: [assisted (current) use of oral hypoglycemic drugs] 11-08-2022 Episodic Other and unspecified benign neoplasm (3 sources) Benign neoplasm of middle ear, nasal cavity and accessory sinuses; Translations: [Inverted papilloma of nasal cavity] Onset: 5 Episodic Other connective tissue disease (2 sources) Impingement syndrome of shoulder region; Translations: [Impingement syndrome of right shoulder] 04-08-2024 Episodic Other endocrine disorders (5 sources) Testicular hypofunction; Translations: [Testicular hypofunction] Onset: 3 Chronic Other endocrine disorders (5 sources) Male hypogonadism; Translations: [Testicular hypofunction] 08-06-2023 Chronic Other endocrine disorders (2 sources) Hypogonadism 01-22-2024 Chronic Other endocrine disorders (4 sources) Endocrine disorder, unspecified; Translations: [Endocrine disorder, unspecified] Onset: 3 Episodic Other endocrine disorders (2 sources) Hypotestosteronism; Translations: [Endocrine disorder, unspecified] 08-06-2023 Episodic Other gastrointestinal disorders (1 source) H/O: gastrointestinal disease; Translations: [Personal history of other diseases of the digestive system] 09-11-2022 Episodic Other injuries and conditions due to external causes (4 sources) Abrasion; Translations: [Other injury of unspecified [...] Onset: 3 Chronic Other non-traumatic joint disorders (2 sources) Joint pain; Translations: [Pain in unspecified joint] 12-20-2023 Episodic Other non-traumatic joint disorders (2 sources) Shoulder pain; Translations: [Pain in unspecified shoulder] [...] rhinitis] 11-09-2024 Chronic Other upper respiratory disease (3 sources) Nasal congestion; Translations: [Nasal congestion] 11-05-2024 Episodic Other upper respiratory disease (1 source) Hypertrophy of nasal turbinates; Translations: [Hypertrophy of nasal turbinates] 11-09-2024 Episodic Other upper respiratory disease (3 sources) Polyp of nasal cavity and/or nasal sinus; [...] Spondylosis; intervertebral disc disorders; other back problems (2 sources) Low back pain; Translations: [Lumbar back pain] 12-20-2023 Episodic Sprains and strains (4 sources) Sprain of foot; Translations: [Unspecified sprain of right foot, initial encounter] 10-16-2022 Episodic Superficial injury; contusion (4 sources) Contusion of lower limb; Translations: [Contusion [...] Onset: 09-11-2022 Episodic Other non-traumatic joint disorders (3 sources) Pain in right shoulder; Translations: [Right [...] Test Name Value Interpretation Reference Range Facility Final Surgical Pathology Rep kailash 01-02-2025 Final Surgical Pathology Report . 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 The specimen is entirely submitted in cassette A1.. TS-1 Christel Lawson, Pathologists ' Intranet Support (ASCP) Performed by Christel Lawson MICROSCOPIC DESCRIPTION: The microscopic examination is performed, except in the case of Gross Only. Verified by Pathology Report verified by [facility] TIFFANIE TORRES MD Sign out Date: 01/02/2025 10:34 Performing Lab: [facility], [address] [place] [address] Pathology Dept Disclaimer If ancillary studies were utilized, the following Laboratory Developed Test (LDT) disclaimer will apply: Under CLIA requirements, [facility] is qualified to perform high complexity testing. For all ancillary stains, positive and negative controls stain appropriately. Performance characteristics of immunohistochemical and chromogenic in-situ hybridization tests have been determined by [facility]. These tests are used for clinical purposes, They should not be regarded as investigational or for research. Normal [facility] Testosterone, Total / Freeon 01-01-2025 TESTOSTER,FREE 40.80 ng/dL Abnormal 5.00-21.00 [facility] Comment on above: Order Comment: N Performed By: #### L 501.9910, L3100.5310, L500.4050, L501.9520, L500.4100, L100.0100 #### [facility] [address] [place], [place], [address] TESTOSTER,TOTAL 1407 ng/dL High 264-916 [facility] Comment on above: Order Comment: N Result Comment: Adul t male reference interval is based on a population of healthy nonobese males (BMI <30) between 19 and 39 years old. kingsley Morris.al. JCEM 2017,102;8707-1691. PMID: [id number]. Performed By: #### L 501.9910, L3100.5310, L500.4050, L501.9520, L500.4100, L100.0100 #### [facility] [address] [place], [place], [id number] TESTOSTERONE,%F 2.90 Normal 1.50-4.20 [facility] Comment on above: Order Comment: N Result Comment: Perf ormed at: - [facility] [address] [id number] Instructor Private: Scotty Arrington PhD, Phone: [phone] Performed at: - [facility] [address] [id number] Instructor Private: Lyn Grewal MD, Phone: [phone] Performed By: #### L 501.9910, L3100.5310, L500.4050, L501.9520, L500.4100, L100.0100 #### [facility] [address] [place], [place], [id number] Absolute lymphocyte countOrd ered By: Gumaro Gonzales on 12-29-2024 Lymphocytes Auto (Unsp spec) [#/Vol] 1.81 10*3/uL 0.83-4.51 [facility] Absolute neutrophil countOrd ered By: Gumaro Gonzales on 12-29-2024 Neutrophils (Bld) [#/Vol] 3.9 10*3/uL 2.0-7.7 [facility] Anion gap in Serum or Plasma Ordered By: Gumaro Gonzales on 12-29-2024 Anion gap [Moles/Vol] 13 mmol/L 5-15 [facility] Automated lymphocyte count a s percentage of total leukocytesOrdered By: Gumaro Wayt on 12-29-2024 Lymphocytes/100 WBC Auto (Unsp spec) 26.9 % 19- [facility] BUN/creatinine ratioOrdered By: Gumaro Gonzales on 12-29-2024 Urea nitrogen/Creatinine [Mass ratio] 12.7 mg/mg 10-20 [facility] Basophil percentageOrdered B y: Gumaro Gonzales on 12-29-2024 Basophils/100 WBC (Bld) 1.3 % High 0-1 [facility] Bilirubin, totalOrdered By: Gumaro Gonzales on 12-29-2024 Bilirubin [Mass/Vol] 0.58 mg/dL 0.00-1.30 [facility] CBC W/Diff, Automatedon 12-12 Absolute Lymph 1.81 X10 3/uL Normal 0.83-4.51 [facility] Comment on above: Performed By: #### L 501.9910, L3100.5310, L500.4050, L501.9520, L500.4100, L100.0100 #### [facility] [address] [place], [address] Absolute Neut 3.9 X10 3/uL Normal 2.0-7.7 [facility] Comment on above: Performed By: #### L 501.9910, L3100.5310, L500.4050, L501.9520, L500.4100, L100.0100 #### [facility] [address] [place], [address] Basophils/100 WBC (Bld) 1.3 % High 0-1 [facility] Comment on above: Performed By: #### L 501.9910, L3100.5310, L500.4050, L501.9520, L500.4100, L100.0100 #### [facility] [address] [place], [address] Eosinophils/100 WBC (Bld) 5.5 % High 0-5 [facility] Comment on above: Performed By: #### L 501.9910, L3100.5310, L500.4050, L501.9520, L500.4100, L100.0100 #### [facility] [address] [place], [address] Erythrocyte distribution width (RBC) [Ratio] 12.2 % Normal 11.6-14.6 [facility] Comment on above: Performed By: #### L 501.9910, L3100.5310, L500.4050, L501.9520, L500.4100, L100.0100 #### [facility] [address] [place], [address] Hematocrit (Bld) [Volume fraction] 44.6 % Normal 40-54 [facility] Comment on above: Performed By: #### L 501.9910, L3100.5310, L500.4050, L501.9520, L500.4100, L100.0100 #### [facility] [address] [place], [address] Hemoglobin (Bld) [Mass/Vol] 16.1 g/dL Normal 13.0-16.5 [facility] Comment on above: Performed By: #### L 501.9910, L3100.5310, L500.4050, L501.9520, L500.4100, L100.0100 #### [facility] [address] [place], [address] IG% 0.300 Normal 0.0-0.9 [facility] Comment on above: Result Comment: IG% - Immature Granulocytes (promyelocytes, myelocytes and metamyelocytes) > 1% indicates that a LEFT SHIFT is Present. Performed By: #### L 501.9910, L3100.5310, L500.4050, L501.9520, L500.4100, L100.0100 #### [facility] [address] [place], [address] Lymphocytes/100 WBC (Bld) 26.9 % Normal 19-41 [facility] Comment on above: Performed By: #### L 501.9910, L3100.5310, L500.4050, L501.9520, L500.4100, L100.0100 #### [facility] [address] [place], [address] MCH (RBC) [Entitic mass] 32.8 pg High 27.0-32.0 [facility] Comment on above: Performed By: #### L 501.9910, L3100.5310, L500.4050, L501.9520, L500.4100, L100.0100 #### [facility] [address] [place], [address] MCHC (RBC) [Mass/Vol] 36.1 g/dL High 32-36 [facility] Comment on above: Performed By: #### L 501.9910, L3100.5310, L500.4050, L501.9520, L500.4100, L100.0100 #### [facility] [address] [place], [address] MCV (RBC) [Entitic vol] 90.8 fL Normal 80-94 [facility] Comment on above: Performed By: #### L 501.9910, L3100.5310, L500.4050, L501.9520, L500.4100, L100.0100 #### [facility] [address] [place], [address] Monocytes/100 WBC (Bld) 8.6 % Normal 0-10 [facility] Comment on above: Performed By: #### L 501.9910, L3100.5310, L500.4050, L501.9520, L500.4100, L100.0100 #### [facility] [address] [place], [address] Neutrophils/100 WBC (Bld) 57.4 % Normal 47-70 [facility] Comment on above: Performed By: #### L 501.9910, L3100.5310, L500.4050, L501.9520, L500.4100, L100.0100 #### [facility] [address] [place], [address] Nucleated RBC (Bld) [#/Vol] 0 10*3/uL Normal 0-5 [facility] Comment on above: Performed By: #### L 501.9910, L3100.5310, L500.4050, L501.9520, L500.4100, L100.0100 #### [facility] [address] [place], [address] Platelet mean volume (Bld) [Entitic vol] 10.1 fL Normal 6.2-12.0 [facility] Comment on above: Performed By: #### L 501.9910, L3100.5310, L500.4050, L501.9520, L500.4100, L100.0100 #### [facility] [address] [place], [address] Platelets (Bld) [#/Vol] 203 10*3/uL Normal 150-450 [facility] Comment on above: Performed By: #### L 501.9910, L3100.5310, L500.4050, L501.9520, L500.4100, L100.0100 #### [facility] [address] [place], [address] RBC (Bld) [#/Vol] 4.91 10*6/uL Normal 4.6-6.2 [facility] Comment on above: Performed By: #### L 501.9910, L3100.5310, L500.4050, L501.9520, L500.4100, L100.0100 #### [facility] [address] [place], [address] RDW SD 40.6 fl Normal 35.1-43.9 [facility] Comment on above: Performed By: #### L 501.9910, L3100.5310, L500.4050, L501.9520, L500.4100, L100.0100 #### [facility] [address] [place], [address] WBC (Bld) [#/Vol] 6.7 10*3/uL Normal 4.4-11.0 [facility] Comment on above: Performed By: #### L 501.9910, L3100.5310, L500.4050, L501.9520, L500.4100, L100.0100 #### [facility] [address] [place], [address] Calculated very low density lipoprotein (VLDL) cholesterol measurementOrdered By: Gumaro Gonzales on 12-29-2024 Calculated very low density lipoprotein (VLDL) cholesterol measurement 27 mg/dL 5-40 [facility] Carbon dioxide, total [Moles /volume] in Central venous bloodOrdered By: Gumaro Gonzales on 12-29-2024 CO2 [Moles/Vol] 22.7 mmol/L 21.0-32.0 [facility] Chloride assayOrdered By: Niyah Gonzales on 12-29-2024 Chloride [Moles/Vol] 104 mmol/L 98-108 [facility] Comprehensive Metabolic Prof ilon 12-29-2024 Albumin [Mass/Vol] 4.6 g/dL Normal 3.4-4.8 [facility] Comment on above: Performed By: #### L 501.9910, L3100.5310, L500.4050, L501.9520, L500.4100, L100.0100 #### [facility] [address] [place], [address] Albumin/Globulin [Mass ratio] 1.6 {ratio} Normal 0.9-2.4 [facility] Comment on above: Performed By: #### L 501.9910, L3100.5310, L500.4050, L501.9520, L500.4100, L100.0100 #### [facility] [address] [place], [address] ALK PHOS 79 U/L Normal 40-129 [facility] Comment on above: Performed By: #### L 501.9910, L3100.5310, L500.4050, L501.9520, L500.4100, L100.0100 #### [facility] [address] [place], [address] ALT [Catalytic activity/Vol] 32 U/L Normal <=46 [facility] Comment on above: Performed By: #### L 501.9910, L3100.5310, L500.4050, L501.9520, L500.4100, L100.0100 #### [facility] [address] [place], [address] AST [Catalytic activity/Vol] 28 U/L Normal <=37 [facility] Comment on above: Performed By: #### L 501.9910, L3100.5310, L500.4050, L501.9520, L500.4100, L100.0100 #### [facility] [address] [place], [address] Bilirubin [Mass/Vol] 0.58 mg/dL Normal 0.00-1.30 [facility] Comment on above: Performed By: #### L 501.9910, L3100.5310, L500.4050, L501.9520, L500.4100, L100.0100 #### [facility] [address] [place], [address] BUN/CRE 12.7 RATIO Normal 10-20 [facility] Comment on above: Performed By: #### L 501.9910, L3100.5310, L500.4050, L501.9520, L500.4100, L100.0100 #### [facility] [address] [place], [address] Calcium [Mass/Vol] 9.8 mg/dL Normal 7.6-11.0 [facility] Comment on above: Performed By: #### L 501.9910, L3100.5310, L500.4050, L501.9520, L500.4100, L100.0100 #### [facility] [address] [place], [address] Chloride [Moles/Vol] 104 mmol/L Normal 98-108 [facility] Comment on above: Performed By: #### L 501.9910, L3100.5310, L500.4050, L501.9520, L500.4100, L100.0100 #### [facility] [address] [place], [address] CO2 [Moles/Vol] 22.7 mmol/L Normal 21.0-32.0 [facility] Comment on above: Performed By: #### L 501.9910, L3100.5310, L500.4050, L501.9520, L500.4100, L100.0100 #### [facility] [address] [place], [address] Creatinine [Mass/Vol] 1.06 mg/dL Normal 0.70-1.20 [facility] Comment on above: Performed By: #### L 501.9910, L3100.5310, L500.4050, L501.9520, L500.4100, L100.0100 #### [facility] [address] [place], [address] GAP 13 Normal 5-15 [facility] Comment on above: Performed By: #### L 501.9910, L3100.5310, L500.4050, L501.9520, L500.4100, L100.0100 #### [facility] [address] [place], [address] GFR/1.73 sq M.predicted among non-blacks MDRD (S/P/Bld) [Vol rate/Area] 78 mL/min/{1.73_m2} Normal >60 [facility] Comment on above: Result Comment: mL/m in/1.73m2 CKD-EPI Creatinine Equation (2020) Performed By: #### L 501.9910, L3100.5310, L500.4050, L501.9520, L500.4100, L100.0100 #### [facility] [address] [place], [address] Globulin (S) [Mass/Vol] 2.9 g/dL Normal 2.2-4.2 [facility] Comment on above: Performed By: #### L 501.9910, L3100.5310, L500.4050, L501.9520, L500.4100, L100.0100 #### [facility] [address] [place], [address] Glucose [Mass/Vol] 105 mg/dL High 70-99 [facility] Comment on above: Performed By: #### L 501.9910, L3100.5310, L500.4050, L501.9520, L500.4100, L100.0100 #### [facility] [address] [place], [address] Potassium [Moles/Vol] 4.0 mmol/L Normal 3.3-5.1 [facility] Comment on above: Performed By: #### L 501.9910, L3100.5310, L500.4050, L501.9520, L500.4100, L100.0100 #### [facility] [address] [place], [address] Sodium [Moles/Vol] 140 mmol/L Normal 133-145 [facility] Comment on above: Performed By: #### L 501.9910, L3100.5310, L500.4050, L501.9520, L500.4100, L100.0100 #### [facility] [address] [place], [address] T PROT 7.5 g/dL Normal 5.9-8.4 [facility] Comment on above: Performed By: #### L 501.9910, L3100.5310, L500.4050, L501.9520, L500.4100, L100.0100 #### [facility] [address] [place], [address] Urea nitrogen [Mass/Vol] 14 mg/dL Normal 4-19 [facility] Comment on above: Performed By: #### L 501.9910, L3100.5310, L500.4050, L501.9520, L500.4100, L100.0100 #### [facility] [address] [place], [address] Eosinophil percentageOrdered By: Gumaro Gonzales on 12-29-2024 Eosinophils/100 WBC (Bld) 5.5 % High 0-5 [facility] Erythrocyte distribution wid th ratioOrdered By: Gumaro Gonzales on 12-29-2024 Erythrocyte distribution width (RBC) [Ratio] 12.2 % 11.6-14.6 [facility] Erythrocyte distribution wid th standard deviationOrdered By: Gumaro Gonzales on 12-29-2024 Erythrocyte distribution width (RBC) [Ratio] 40.6 fl 35.1-43.9 [facility] Free testosterone percentage Ordered By: Gumaro Gonzales on 12-29-2024 Testosterone Free/Testosterone.total [Mass fraction] 2.90 % 1.50-4.20 [facility] Comment on above: Performed at: [facility] jareth [address] [id number] Director: Scotty Arrington PhD, Phone: [phone] at: [place] [address] [place], [place] [id number] Director: Lyn Grewal MD, Phone: [phone] Glomerular filtration rate ( GFR) estimation/1.73 sq m using serum, plasma, or whole bOrdered By: Gumaro Gonzales on 12-29-2024 GFR/1.73 sq M.predicted among non-blacks MDRD (S/P/Bld) [Vol rate/Area] 78 mL/min/{1.73_m2} >60 [facility] Comment on above: mL/min/1.73m2 CKD-EP I Creatinine Equation (2020) Hematocrit Auto (Bld) [Volum e fraction]Ordered By: Gumaro Gonzales on 12-29-2024 Hematocrit (Bld) [Volume fraction] 44.6 % 40-54 [facility] Hemoglobin measurementOrdere d By: Gumaro Gonzales on 12-29-2024 Hemoglobin (Bld) [Mass/Vol] 16.1 g/dL 13.0-16.5 [facility] Immature granulocytes/100 WB C Auto (Bld)Ordered By: Gumaro Gonzales on 12-29-2024 Immature granulocytes/100 WBC (Bld) 0.300 % 0.0-0.9 [facility] Comment on above: IG% - Immature Granu locytes (promyelocytes, myelocytes and metamyelocytes) > 1% indicates that a LEFT SHIFT is Present. LDL calc ser/plasOrdered By: Gumaro Gonzales on 12-29-2024 Cholesterol in LDL [Mass/Vol] 156 mg/dL [facility] Comment on above: Mpfxysjmaf=290-802 m g/dL & Higher Aqoj=296 mg/dL or greaterFriedwald Equation for LDL-C Laboratory - Chemistry and C hemistry - challengeOrdered By: Gumaro Gonzales on 12-29-2024 AST [Catalytic activity/Vol] 28 U/L <38 [facility] Lipid Profileon 12-29-2024 CHOL:HDL 4.44 Normal [facility] Comment on above: Performed By: #### L 501.9910, L3100.5310, L500.4050, L501.9520, L500.4100, L100.0100 #### [facility] [address] [place], [address] Cholesterol [Mass/Vol] 235 mg/dL High <=200 [facility] Comment on above: Result Comment: Chol esterol level, Desirable <200 mg/dL Borderline high cholesterol 200-239 mg/dL High cholesterol >=240 mg/dL Recommendations of the NCEP Adult Treatment Panel for the following risk-cutoff thresholds for the [place] population. Performed By: #### L 501.9910, L3100.5310, L500.4050, L501.9520, L500.4100, L100.0100 #### [facility] [address] [place], [address] Cholesterol in HDL [Mass/Vol] 53 mg/dL Normal [facility] Comment on above: Result Comment: Lacey onal Cholesterol Education Program (NCEP) guidelines: <40 mg/dL: Low HDL-cholesterol (major risk factor for CHD) >= 60 mg/dL: High HDL-cholesterol (negative risk factor for CHD) HDL-cholesterol is affected by a number of factors, e.g. smoking, exercise, hormones, sex and age. Performed By: #### L 501.9910, L3100.5310, L500.4050, L501.9520, L500.4100, L100.0100 #### [facility] [address] [place], [address] Cholesterol in LDL [Mass/Vol] 156 mg/dL Normal [facility] Comment on above: Result Comment: Bord jyjolk=276-014 mg/dL Higher Yqsf=937 mg/dL or greater Friedwald Equation for LDL-C Performed By: #### L 501.9910, L3100.5310, L500.4050, L501.9520, L500.4100, L100.0100 #### [facility] [address] [place], [address] Cholesterol in VLDL [Mass/Vol] 27 mg/dL Normal 5-40 [facility] Comment on above: Performed By: #### L 501.9910, L3100.5310, L500.4050, L501.9520, L500.4100, L100.0100 #### [facility] [address] [facility] [place], [address] Triglyceride [Mass/Vol] 133 mg/dL Normal [facility] Comment on above: Result Comment: The drugs N-Acetylcysteine and Metamizole may falsely depress this assay. Normal range: <150 mg/dL Borderline High: 150-199 mg/dL High: 200-499 mg/dL Very High: >500 mg/dL Performed By: #### L 501.9910, L3100.5310, L500.4050, L501.9520, L500.4100, L100.0100 #### [facility] [address] [place], [address] MCV (mean corpuscular volume ) determinationOrdered By: Gumaro Gonzales on 12-29-2024 MCV (RBC) [Entitic vol] 90.8 fL 80-94 [facility] Mean corpuscular hemoglobin (MCH) determinationOrdered By: Gumaro Gonzales on 12-29-2024 MCH (RBC) [Entitic mass] 32.8 pg High 27.0-32.0 [facility] Mean corpuscular hemoglobin concentration (MCHC) determinationOrdered By: Gumaro Gonzales on 12-29-2024 MCHC (RBC) [Mass/Vol] 36.1 g/dL High 32-36 [facility] Mean platelet volume determi nationOrdered By: Gumaro Gonzales on 12-29-2024 Platelet mean volume (Bld) [Entitic vol] 10.1 fL 6.2-12.0 [facility] Monocyte percentageOrdered B y: Gumaro Gonzales on 12-29-2024 Monocytes/100 WBC (Bld) 8.6 % 0-10 [facility] Neutrophil percentageOrdered By: Gumaro Gonzales on 12-29-2024 Neutrophils/100 WBC (Bld) 57.4 % 47-70 [facility] Nucleated red blood cell per centageOrdered By: Gumaro Gonzales on 12-29-2024 Nucleated RBC/100 WBC (Bld) [Ratio] 0 % 0-5 [facility] PSA,Total - Annual Screenon 12-29-2024 PSA,TOT SCREEN 1.45 ng/mL Normal 0.02-4.00 [facility] Comment on above: Result Comment: This test was performed using the [employer] tPSA method. Measured values of a patient??sample can vary depending on the testing procedure used. PSA values determined on patient samples by different testing procedures cannot be used interchangeably. If there is a change in PSA assays while monitoring therapy, sequential testing should be performed to confirm baseline values. Performed By: #### L 501.9910, L3100.5310, L500.4050, L501.9520, L500.4100, L100.0100 #### [facility] [address] [place], [address] Platelet countOrdered By: Niyah Gonzales on 12-29-2024 Platelets (Bld) [#/Vol] 203 10*3/uL 150-450 [facility] Potassium measurement (mass/ volume)Ordered By: Gumaro Gonzales on 12-29-2024 Potassium (Unsp spec) [Mass/Vol] 4.0 mmol/L 3.3-5.1 [facility] RBC Auto (Bld) [#/Vol]Ordere d By: Gumaro Gonzales on 12-29-2024 RBC (Bld) [#/Vol] 4.91 10*6/uL 4.6-6.2 [facility] Screening total cholesterol/ high density lipoprotein (HDL) cholesterol ratioOrdered By: Gumaro Gonzales on 12-29-2024 Cholesterol.total/Tala sterol in HDL [Mass ratio] 4.44 {ratio} [facility] Serum creatinine measurement (mass/volume)Ordered By: Gumaro Gonzales on 12-29-2024 Creatinine [Mass/Vol] 1.06 mg/dL 0.70-1.20 [facility] Serum globulin measurementOr dered By: Gumaro Gonzales on 12-29-2024 Globulin (S) [Mass/Vol] 2.9 g/dL 2.2-4.2 [facility] [place] Serum glucose measurement (m ass/volume)Ordered By: Gumaro Gonzales on 12-29-2024 Glucose [Mass/Vol] 105 mg/dL High 70-99 [facility] Serum or plasma alanine barber otransferase (ALT) measurementOrdered By: Gumaro Gonzales on 12-29-2024 ALT [Catalytic activity/Vol] 32 U/L <47 [facility] Serum or plasma albumin homero urement (mass/volume)Ordered By: Gumaro Gonzales on 12-29-2024 Albumin [Mass/Vol] 4.6 g/dL 3.4-4.8 [facility] Serum or plasma albumin/glob ulin mass ratioOrdered By: Gumaro Gonzales on 12-29-2024 Albumin/Globulin [Mass ratio] 1.6 {ratio} 0.9-2.4 [facility] Serum or plasma alkaline latonia sphatase measurementOrdered By: Gumaro Gonzales on 12-29-2024 ALP [Catalytic activity/Vol] 79 U/L 40-129 [facility] Serum or plasma calcium homero urement (mass/volume)Ordered By: Gumaro Gonzales on 12-29-2024 Calcium [Mass/Vol] 9.8 mg/dL 7.6-11.0 [facility] Serum or plasma cholesterol in HDL measurement (mass/volume)Ordered By: Gumaro Gonzales on 12-29-2024 Cholesterol in HDL [Mass/Vol] 53 mg/dL >40 [facility] Comment on above: National Cholesterol Education Program (NCEP) guidelines:<40 mg/dL: Low HDL-cholesterol (major risk factor for CHD)>= 60 mg/dL: High HDL-cholesterol (negative risk factor for CHD)HDL-cholesterol is affected by a number of factors, e.g. smoking, exercise, hormones, sex and age. Serum or plasma cholesterol measurement (mass/volume)Ordered By: Gumaro Gonzales on 12-29-2024 Cholesterol [Mass/Vol] 235 mg/dL High <201 [facility] Comment on above: Cholesterol level, D esirable <200 mg/dLBorderline high cholesterol 200-239 mg/dLHigh cholesterol >=240 mg/dLRecommendations of the NCEP Adult Treatment Panel for the following risk-cutoff thresholds for the [place] population. Serum or plasma free testost erone measurement (mass/volume)Ordered By: Gumaro Gonzales on 12-29-2024 Testosterone Free [Mass/Vol] 40.80 ng/dL High 5.00-21.00 [facility] Serum or plasma urea nitroge n measurement (mass/volume)Ordered By: Gumaro Gonzales on 12-29-2024 Urea nitrogen [Mass/Vol] 14 mg/dL 4-19 [facility] Sodium levelOrdered By: Aldo Gonzales on 12-29-2024 Sodium [Moles/Vol] 140 mmol/L 133-145 [facility] TSH DL <= 0.005 mIU/L QnOrde red By: Gumaro Gonzales on 12-29-2024 TSH Qn 3.210 uIU/mL 0.300-4.200 [facility] Testosterone, totalOrdered B y: Gumaro Gonzales on 12-29-2024 Testosterone [Mass/Vol] 1407 ng/dL High 264-[address] [place] Comment on above: Adult male reference interval is based on a population ofhealthy nonobese males (BMI <30) between 19 and 39 yearsold. kingsley Morris.al. JCEM 2017,102;9241-4907. PMID:38165270. Thyroid Stim Hormone (TSH)on 12-29-2024 TSH 3.210 uIU/mL Normal 0.300-4.200 [facility] Comment on above: Performed By: #### L 501.9910, L3100.5310, L500.4050, L501.9520, L500.4100, L100.0100 #### [facility] [address] [place], [place], [address] Total proteinOrdered By: Emerson Gonzales on 12-29-2024 Protein [Mass/Vol] 7.5 g/dL 5.9-8.4 [facility] Triglycerides measurementOrd ered By: Gumaro Gonzales on 12-29-2024 Triglyceride [Mass/Vol] 133 mg/dL <199 [facility] [place] Comment on above: The drugs N-Acetylcy steine and Metamizole may falsely depress this assay. Normal range: <150 mg/dLBorderline High: 150-199 mg/dLHigh: 200-499 mg/dLVery High: >500 mg/dL White blood cell (WBC) count Ordered By: Gumrao Gonzales on 12-29-2024 WBC (Bld) [#/Vol] 6.7 10*3/uL 4.4-11.0 [facility] Internal Medicine Office Vis ctcarson 12-26-2024 Internal Medicine Office Visit [facility] [address] [place], [place] [address] OFFICE VISIT Date of Service: 12/26/24 MR#: [id number] Acct: [id number] Name: JOI MADRIGAL JrHitesh Rep #: [id number] : 1960 Provider: JANINE Arevalo Age/Sex: 64/M Location: [facility] Status: Signed Intake Vital Signs 06/26/24 14:48 [...] ea 12/26/24 12/26/24 Rx x 1 1/2 (OSSIANIX Luer Lock Syringe with needle) tadalafil 5 [...] habits, constipation, cramp (more content not included)... Normal [facility] 11-10-2024 [facility] Telephone (OTFGFL) JOI MADRIGAL ([id number]) 1960 M Date Time Provider Department 11/10/24 [facility] During your visit today, we recorded the [...] daily. - magnesium oxide-magnesium amino acid chelate (AJ-TVDA-VYKBPEC) 133 mg tablet Take 133 mg by mouth. Problem List As Of Date: 11/10/2024 (None) Encounter Status:Closed by LUCIUS JIMENEZ on 11/10/24 [facility] ([id number]) 1960 M Date Time Provider Department 11/07/24 [facility] During your visit today, we recorded the [...] daily. - magnesium oxide-magnesium amino acid chelate (XJ-UCAH-QLOMXHK) 133 mg tablet Take 133 mg by mouth. Problem List As Of Date: 11/07/2024 (None) Encounter Status:Closed by LUCIUS JIMENEZ on 11/10/24 [facility]al 11-05-2024 [facility] Office Visit (OTFGFL ) JOI MADRIGAL ([id number]) 1960 M Date Time Provider Department 11/05/24 9:30 AM [facility] During your visit today, we recorded the [...] once daily. magnesium oxide-magnesium amino acid chelate (CF-VGPP-DMDAUDP) 133 mg tablet Take 133 mg by [...] to palpation without evidence of duct abnormality. Submandibular/Ambrocio' s-without evidence of palpable abnormality and no [...] results. Elect (more content not included)... Normal [facility] CBC W/Diff, Automatedon -05 16-2024 Absolute Lymph 2.24 X10 3/uL Normal 0.83-4.51 [facility] Comment on above: Performed By: #### L 100.0100 ####[facility] [address] [place], [address] Absolute Neut 6.0 X10 3/uL Normal 2.0-7.7 [facility] Comment on above: Performed By: #### L 100.0100 ####[facility] [address] [place], [address] Basophils/100 WBC (Bld) 0.9 % Normal 0-1 [facility] [place] Comment on above: Performed By: #### L 100.0100 ####[facility] [address] [place], [address] Eosinophils/100 WBC (Bld) 4.5 % Normal 0-5 [facility] Comment on above: Performed By: #### L 100.0100 ####[facility] [address] [place], [address] Erythrocyte distribution width (RBC) [Ratio] 12.0 % Normal 11.6-14.6 [facility] Comment on above: Performed By: #### L 100.0100 ####[facility] [address] [place], [address] Hematocrit (Bld) [Volume fraction] 44.3 % Normal 40-54 [facility] Comment on above: Performed By: #### L 100.0100 ####[facility] [address] [place], [address] Hemoglobin (Bld) [Mass/Vol] 15.7 g/dL Normal 13.0-16.5 [facility] Comment on above: Performed By: #### L 100.0100 ####[facility] [address] [place], [address] IG% 1.300 High 0.0-0.9 [facility] Comment on above: Result Comment: IG% - Immature Granulocytes (promyelocytes, myelocytes and metamyelocytes) > 1% indicates that a LEFT SHIFT is Present. Performed By: #### L 100.0100 ####[facility] [address] [place], [address] Lymphocytes/100 WBC (Bld) 23.3 % Normal 19-41 [facility] Comment on above: Performed By: #### L 100.0100 ####[facility] [address] [place], [address] MCH (RBC) [Entitic mass] 32.7 pg High 27.0-32.0 [facility] Comment on above: Performed By: #### L 100.0100 ####[facility] [address] [place], [address] MCHC (RBC) [Mass/Vol] 35.4 g/dL Normal 32-36 [facility] Comment on above: Performed By: #### L 100.0100 ####[facility] [address] [place], [address] MCV (RBC) [Entitic vol] 92.3 fL Normal 80-94 [facility] [place] Comment on above: Performed By: #### L 100.0100 ####[facility] [address] [place], [address] Monocytes/100 WBC (Bld) 7.4 % Normal 0-10 [facility] [place] Comment on above: Performed By: #### L 100.0100 ####[facility] [address] [place], [address] Neutrophils/100 WBC (Bld) 62.6 % Normal 47-70 [facility] Comment on above: Performed By: #### L 100.0100 ####[facility] [address] [place], [address] Nucleated RBC (Bld) [#/Vol] 0 10*3/uL Normal 0-5 [facility] Comment on above: Performed By: #### L 100.0100 ####[facility] [address] [place], [address] Platelet mean volume (Bld) [Entitic vol] 10.1 fL Normal 6.2-12.0 [facility] Comment on above: Performed By: #### L 100.0100 ####[facility] [address] [place], [address] Platelets (Bld) [#/Vol] 227 10*3/uL Normal 150-450 [facility] Comment on above: Performed By: #### L 100.0100 ####[facility] [address] [place], [address] RBC (Bld) [#/Vol] 4.80 10*6/uL Normal 4.6-6.2 [facility] Comment on above: Performed By: #### L 100.0100 ####[facility] [address] [place], [address] RDW SD 41.0 fl Normal 35.1-43.9 [facility] Comment on above: Performed By: #### L 100.0100 ####[facility] [address] [place], [address] WBC (Bld) [#/Vol] 9.6 10*3/uL Normal 4.4-11.0 [facility] Comment on above: Performed By: #### L 100.0100 ####[facility] [address] [place], [address] Internal Medicine Office Vis iton 06-26-2024 Internal Medicine Office Visit [facility] [address] [place] [address] [place] [address] OFFICE VISIT Date of Service: 06/26/24 MR#: [id number] Acct: [id number] Name: JOI MADRIGAL Jr. Rep #: [id number] : 1960 Provider: Dr. Julita leyva MD Age/Sex: 64/M Location: [facility] Status: Signed Intake Vital Signs 02/15/24 14:12 [...] PT Chief Complaint: Establish/transfer care. Nasal polyp Stock Preparation Supervisor Required: No Accompanied by: Is patient in [...] ea 12/24/23 06/26/24 Rx x 1 1/2 (OSSIANIX Luer Lock Syringe with needle) testosterone cypionate [...] No abd (more content not included)... Normal [facility] Orthopedic Visit Reporton Orthopedic Visit Report [facility] [address] [place] [address] OFFICE VISIT Date of Service: 05/06/24 MR#: [id number] Acct: [id number] Name: RUTH MADRIGALCeline Cabezas Rep #: [id number] : 1960 Provider: Dr. Brock paige MD Age/Sex: 64/M Location: [facility] Status: Signed Intake Vital Signs 04/08/24 08:20 [...] ea 12/24/23 05/06/24 Rx x 1 1/2 (OSSIANIX Luer Lock Syringe with needle) testosterone cypionate [...] popping. pain all the time. worked in [employer]. did a lot of [employer] physician coverage. interested in a cortisone injection. [...] Performing Provider: Brock Marrero MD Performing Location: [facility] Administered by: Brock Marrero MD on 05/06/24 09:51 Dose Route Admin Location Dispensed Lot Number Expiration Date [place] Man ufacturer 80 mg intra-articular right subacromial 2 mL [id number] 09/11/25 7940-4122-88 [facility] (more content not included)... Normal [facility] Internal Medicine Office Vis meryl 04-08-2024 Internal Medicine Office Visit [facility] [address] [place] [address] [place] [address] OFFICE VISIT Date of Service: 04/08/24 MR#: [id number] Acct: [id number] Name: JOI MADRIGAL JrHitesh Rep #: [id number] : 1960 Provider: JANINE Arevalo Age/Sex: 64/M Location: [facility] Status: Signed Intake Vital Signs 02/15/24 14:12 [...] ea 12/24/23 04/08/24 Rx x 1 1/2 (OSSIANIX Luer Lock Syringe with needle) testosterone cypionate 200 mg/mL 200 mg IM Q2W #1 ea 12/24/23 04/08/24 Rx intramuscular kit testosterone cypionate 200 mg/mL 200 mg IM Q2W hypogonadism #10 mL 01/22/24 04/08/24 Rx intramuscular oil (Depo-Testosterone) [facility] Medical History Allergies Surgical History Hx of [...] redness, lesi (more content not included)... Normal [facility] Shoulder min 2 Viewson 04-08 Shoulder min 2 Views [facility] [address] [place], [place] [address] Shoulder min 2 Views MR#: [id number] Acct: [id number] Name: JOI MADRIGAL Jr. 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 Normal [facility] Internal Medicine Office Vis iton 02-15-2024 Internal Medicine Office Visit [facility] [address] [place] [address] [place] [address] OFFICE VISIT Date of Service: 02/15/24 MR#: [id number] Acct: [id number] Name: JOI MADRIGAL JrHitesh Rep #: [id number] : 1960 Provider: BRYCE rockwell Age/Sex: 64/M Location: [facility] Status: Signed Intake Vital Signs 02/01/24 09:11 [...] Reasons: MED FU Chief Complaint: med f/u Stock Preparation Supervisor Required: No Accompanied by: Self Is patient [...] ea 12/24/23 02/15/24 Rx x 1 1/2 (OSSIANIX Luer Lock Syringe with needle) testosterone cypionate [...] urinary frequency (more content not included)... Normal [facility] Internal Medicine Office Vis iton 02-01-2024 Internal Medicine Office Visit [facility] [address] [place] [address] [place] [address] OFFICE VISIT Date of Service: 02/01/24 MR#: [id number] Acct: [id number] Name: JOI MADRIGAL Jr. Rep #: [id number] : 1960 Provider: BRYCE rockwell Age/Sex: 64/M Location: [facility] Status: Signed Intake Vital Signs 12/20/23 13:22 [...] Visit Reasons: BPH FOLLOW UP Chief Complaint: NP. DARI MALIK-PPW HERE Stock Preparation Supervisor Required: No Is patient in pain?: No [...] ea 12/24/23 02/01/24 Rx x 1 1/2 (OSSIANIX Luer Lock Syringe with needle) testosterone cypionate [...] at home: Yes HPI HPI Chief Complaint: GUEST SERVICES LEAD. EST CARE-PPW HERE Details: JOI MADRIGAL, is [...] or numbn (more content not included)... Normal [facility] Basophil percentageOrdered B y: Kinza Abreu on 08-29-2023 Bilirubin [Mass/Vol] 0.50 mg/dL 0.20-1.00 [facility] Comment on above: For patients on eltr ombopag therapy, use of Dimension [place] TBIL is not recommended. Chloride [Moles/Vol] 107 mmol/L 98-107 [facility] Cholesterol [Mass/Vol] 220 mg/dL <200 [facility] Comment on above: <200 mg/dL Desirable 200-240 mg/dL Borderline >240 mg/dL High Risk Glucose [Mass/Vol] 103 mg/dL 74-106 [facility] Comment on above: Fasting Glucose resu lt from 100 to 125 mg/dL suggests IMPAIRED HOMEOSTASIS per A.D.A. criteria. Hemoglobin (Bld) [Mass/Vol] 14.6 g/dL 13.0-16.5 [facility] Potassium [Moles/Vol] 3.8 mmol/L 3.5-5.1 [facility] Protein [Mass/Vol] 7.2 g/dL 6.4-8.2 [facility] Sodium [Moles/Vol] 140 mmol/L 136-145 [facility] Testosterone [Mass/Vol] 860.88 ng/dL [facility] Comment on above: CENTRAL 90% REFERENC E RANGES MALE AGE <50 197.44 - 669.58 ng/dL MALE AGE > or = 50 187.72 - 684.19 ng/dL FEMALE AGE <50 8.38 - 35.01 ng/dL FEMALE AGE > or = 50 <7.00 - 35.92 ng/dL Effective as of 12/07/20 Triglyceride [Mass/Vol] 102 mg/dL <199 [facility] [place] Comment on above: The drugs N-Acetylcy steine and Metamizole may falsely depress this assay.Serum Triglycerides Reference Interval Normal <150 mg/dL Borderline high 150 - 199 mg/dL High 200 - 499 mg/dL Very High > or = 500 mg/dL WBC (Bld) [#/Vol] 5.8 10*3/uL 4.4-11.0 [facility] Determination of erythrocyte mean corpuscular volume (MCV)Ordered By: Kinza Abreu on 08-29-2023 MCV (RBC) [Entitic vol] 91.6 fL 80-94 [place] Erythrocyte distribution wid th ratioOrdered By: Kinzalavon Abreu on 08-29-2023 Erythrocyte distribution width (RBC) [Ratio] 11.9 % 11.6-14.6 [facility] Erythrocyte distribution wid th standard deviationOrdered By: Kinzalavon Abreu on 08-29-2023 Erythrocyte distribution width (RBC) [Entitic vol] 39.9 fL 35.1-43.9 [facility] Hematocrit Auto (Bld) [Volum e fraction]Ordered By: Foss Lois on 08-29-2023 Hematocrit (Bld) [Volume fraction] 41.5 % 40-54 [facility] - Chemistry and C hemistry - challengeOrdered By: Kinzalavon Abreu on 08-29-2023 Albumin/Globulin [Mass ratio] 1.2 {ratio} 0.9-2.4 [facility] ALP [Catalytic activity/Vol] 69 U/L 45-117 [facility] ALT [Catalytic activity/Vol] 46 U/L 16-61 [facility] Cholesterol in HDL [Mass/Vol] 43 mg/dL >40 [facility] Comment on above: The drugs N-Acetylcy steine and Metamizole may falsely depress this assay. Reference Range HDL <40 mg/dL Low HDL Cholesterol HDL >or= 60 mg/dL High HDL Cholesterol Cholesterol in LDL [Mass/Vol] 157 mg/dL 0-130 [facility] CO2 [Moles/Vol] 28.0 mmol/L 21.0-32.0 [facility] Globulin (S) [Mass/Vol] 3.2 g/dL 2.2-4.2 [facility] Urea nitrogen/Creatinine [Mass ratio] 16.8 mg/mg 10-20 [facility] - Hematology and Cell countsOrdered By: Kinza Abreu on 08-29-2023 MCH (RBC) [Entitic mass] 32.2 pg 27.0-32.0 [facility] MCHC (RBC) [Mass/Vol] 35.2 g/dL 32-36 [facility] Platelet mean volume (Bld) [Entitic vol] 10.4 fL 6.2-12.0 [facility] Platelets (Bld) [#/Vol] 189 10*3/uL 150-450 [facility] No Panel InformationOrdered By: Kinza Abreu on 08-29-2023 Estimated GFR (MDRD) Amer 103 mL/min >60 [facility] Comment on above: GFR Calc Estimated GFR (MDRD) Non-Af Amer 85 mL/min >60 [facility] Comment on above: Non- GFR Calc Prostate Specific Antigen Screen 1.29 ng/mL 0.00-4.00 [facility] Comment on above: This test was perfor med using the TPSA assay method for the[employer] chemistry system. Values obtained with differentassay methods cannot be used interchangably.When changing PSA assays in the course of monitoring apatient, additional sequential testing should be carriedout to confirm baseline values. VLDL Cholesterol 20 mg/dL 5-40 [facility] RBC Auto (Bld) [#/Vol]Ordere d By: Kinza Abreu on 08-29-2023 RBC (Bld) [#/Vol] 4.53 10*6/uL 4.6-6.2 [facility] Serum or plasma calcium homero urement (mass/volume)Ordered By: Kinza Abreu on 08-29-2023 Calcium [Mass/Vol] 9.0 mg/dL 8.5-10.1 [facility] Serum or plasma creatinine m easurement (mass/volume)Ordered By: Kinza Abreu on 08-29-2023 Creatinine [Mass/Vol] 0.95 mg/dL 0.70-1.30 [facility] Comment on above: The validity of the calculated GFR & GFRAA in patients over 70 years has not been determined. Clinical correlation is essential. Serum or plasma urea nitroge n measurement (mass/volume)Ordered By: Kinza Abreu on 08-29-2023 Urea nitrogen [Mass/Vol] 16 mg/dL 7-18 [facility] Thin prep Papanicolaou smear with manual screeningOrdered By: Kinza Abreu on 08-29-2023 Thin prep Papanicolaou smear with manual screening 4.0 g/dL 3.2-5.0 [facility] Thin prep Papanicolaou smear with manual screening 21 U/L 15-37 [facility] Thin prep Papanicolaou smear with manual screening 5 5-15 [facility] CBC W/O DIFFon 03-07-2023 Erythrocyte distribution width (RBC) [Ratio] 12.6 % Normal [facility] Comment on above: Order Comment: Relea se to patient->Immediate Performed By: #### L [id number] ####[address] HEMATOCRIT BLOOD Normal 39.0-51.5 [facility] Comment on above: Order Comment: Relea se to patient->Immediate Performed By: #### L [id number] ####[address] HEMATOCRIT BLOOD 42.1 Normal [facility] Comment on above: Order Comment: Relea se to patient->Immediate Performed By: #### L [id number] ####[address] HEMOGLOBIN Normal 13.1-17.6 [facility] Comment on above: Order Comment: Relea se to patient->Immediate Performed By: #### L [id number] ####[address] Hemoglobin (Bld) [Mass/Vol] 14.6 g/dL Normal [facility] Comment on above: Order Comment: Relea se to patient->Immediate Performed By: #### L [id number] ####[address] MCH Normal 28.4-33.4 [facility] Comment on above: Order Comment: Relea se to patient->Immediate Performed By: #### L [id number] ####[address] MCH (RBC) [Entitic mass] 32.3 pg Normal [facility] Comment on above: Order Comment: Relea se to patient->Immediate Performed By: #### L [id number] ####[address] [place] [address] [facility] MCHC Normal 31.1-37.0 [facility] Comment on above: Order Comment: Relea se to patient->Immediate Performed By: #### L [id number] ####[address], [facility] MCHC (RBC) [Mass/Vol] 34.8 g/dL Normal [facility] Comment on above: Order Comment: Relea se to patient->Immediate Performed By: #### L [id number] ####[address] [address] [facility] MCV Normal 85.0-99.0 [facility] Comment on above: Order Comment: Relea se to patient->Immediate Performed By: #### L [id number] ####[address] [place] [address] [facility] MCV (RBC) [Entitic vol] 92.7 fL Normal [facility] Comment on above: Order Comment: Relea se to patient->Immediate Performed By: #### L [id number] ####[address] [address] [facility] PLATELET COUNT Normal 154-393 [facility] Comment on above: Order Comment: Relea se to patient->Immediate Performed By: #### L [id number] ####[address] [place] [address] [facility] Platelets (Bld) [#/Vol] 178 10*3/uL Normal [facility] Comment on above: Order Comment: Relea se to patient->Immediate Performed By: #### L [id number] ####[address] [place] [address] [facility] RBC (Bld) [#/Vol] 4.54 10*6/uL Normal [facility] Comment on above: Order Comment: Relea se to patient->Immediate Performed By: #### L [id number] ####[facility] [facility]ALLotLinxBEAVERH[facility] [place] [address] [facility] RDW Normal 11.7-15.2 [facility] Comment on above: Order Comment: Relea se to patient->Immediate Performed By: #### L [id number] ####[facility] [place] [address] [facility] RED BLOOD CELL COUNT Normal 4.30-5.86 [facility] Comment on above: Order Comment: Relea se to patient->Immediate Performed By: #### L [id number] ####[facility] [place] [address] [facility] WBC (Bld) [#/Vol] 12.0 10*3/uL Normal [facility] Comment on above: Order Comment: Relea se to patient->Immediate Performed By: #### L [id number] ####[facility] [place] [address] [facility] WHITE BLOOD CELL COUNT Normal 4.0-10.5 [facility] Comment on above: Order Comment: Relea se to patient->Immediate Performed By: #### L [id number] ####[id number] [place] [address] [facility] RENAL FUNCTION PANELon 03-07 ALBUMIN Normal 3.5-5.7 [facility] Comment on above: Order Comment: KDIGO 2012 GFR Categories StageDescriptioneGFR (mL/min/1.73m2) H6Tlmghh or high>=90 W9Mhzmbi enwcvlkhc60-54 H7vYdzifb to moderately aelnkcwfx59-83 Y7iWkwprftmyt to severely qepvrcmsp77-70 N6Sahuitej hdaitafye81-61 R2Betgyl Failure<15 Release to patient->Immediate Performed By: #### L [id number] #### [facility] [address] [place] [id number] [facility] Albumin [Mass/Vol] 4.0 g/dL Normal [facility] Comment on above: Order Comment: KDIGO 2012 GFR Categories StageDescriptioneGFR (mL/min/1.73m2) C8Tecaei or high>=90 F7Hpqowb jryqgywxc04-11 T1kRvbzzr to moderately ejoveffds13-60 S6oSfyuiuvluj to severely gysuwdaxe54-36 I0Cmzafpks cpcctscwe24-39 W5Kbqvpc Failure<15 Release to patient->Immediate Performed By: #### L [id number] #### [place] [id number] [facility] ANION GAP Normal 7-16 [facility] Comment on above: Order Comment: KDIGO 2012 GFR Categories StageDescriptioneGFR (mL/min/1.73m2) M6Yecvep or high>=90 W0Lpebvu plibkhnuy71-81 N8bPvetos to moderately nbwmchuyt35-58 O1lQabcouaslm to severely wcytvqhrb10-08 Z7Yhjupnka hmxmmyxmf33-79 K0Clyjoj Failure<15 Release to patient->Immediate Performed By: #### L [id number] #### [place] [id number] [facility] Anion gap [Moles/Vol] 5 mmol/L Normal [facility] Comment on above: Order Comment: KDIGO 2012 GFR Categories StageDescriptioneGFR (mL/min/1.73m2) V6Azykyu or high>=90 N0Lxihgf klesiqxxq37-90 O0tMissjw to moderately pbzupnadr35-94 N9kRwrcvlyviu to severely iixleonls55-42 Z4Dvbrpixz xrfyugmdq70-57 M2Wdjsos Failure<15 Release to patient->Immediate Performed By: #### L [id number] #### [place] [id number] [facility] BLOOD UREA NITROGEN Normal 7-25 [facility] Comment on above: Order Comment: KDIGO 2012 GFR Categories StageDescriptioneGFR (mL/min/1.73m2) S6Cdcowt or high>=90 N0Eiroea ptcaropcs42-72 U9dXduyey to moderately uduiuyvus44-40 D9oWxfzertexs to severely -11 N7Prcbojgd erxtczskq97-82 R2Ddzytm Failure<15 Release to patient->Immediate Performed By: #### L [id number] #### [place] [id number] [facility] CALCIUM Normal 8.6-10.2 [facility] Comment on above: Order Comment: KDIGO 2012 GFR Categories StageDescriptioneGFR (mL/min/1.73m2) B4Hcbtlq or high>=90 Z1Vfsstw alzmvtqeo91-38 F8iTvfvut to moderately ppeuvbnoa59-94 D6xXjswkdulac to severely awftdxert58-39 B0Kjjqxkia -08 B2Tzrstm Failure<15 Release to patient->Immediate Performed By: #### L [id number] #### [address] Calcium [Mass/Vol] 9.0 mg/dL Normal [facility] Comment on above: Order Comment: KDIGO 2012 GFR Categories StageDescriptioneGFR (mL/min/1.73m2) M9Decren or high>=90 X7Hzvfou gpnplhier88-70 M8sXudnxz to moderately jfmcsiutn77-63 X4kMgpwlmkdqc to severely suylxzxyx96-72 W9Ghkxspda pybrfugvh46-35 Q4Hgvmqq Failure<15 Release to patient->Immediate Performed By: #### L [id number] #### [address] CARBON DIOXIDE Normal 21-31 [facility] Comment on above: Order Comment: KDIGO 2011 GFR Categories StageDescriptioneGFR (mL/min/1.73m2) Z1Nqrhwq or high>=90 B0Mbdgcs joqtiyelb07-51 H3eTyrqhy to moderately ohqchjvxx22-12 F1oYxjlkbmjjy to severely tovgeihdh80-06 A3Pqyhmrbu sxfxshkes95-48 M9Tumiqu Failure<15 Release to patient->Immediate Performed By: #### L [id number] #### [place] [id number] [facility] CHLORIDE Normal 98-107 [facility] Comment on above: Order Comment: KDIGO 2012 GFR Categories StageDescriptioneGFR (mL/min/1.73m2) A7Bsrtuj or high>=90 Z8Atkjfx vvtlsyjmv64-62 O1xSciqhz to moderately tvrsyjnmz64-10 G5cWdkycutjnc to severely elmeotlts01-60 C4Ojfxrosw jittinivb96-26 K6Otiwlm Failure<15 Release to patient->Immediate Performed By: #### L [id number] #### [address] Chloride [Moles/Vol] 102 mmol/L Normal [facility] Comment on above: Order Comment: KDIGO 2012 GFR Categories StageDescriptioneGFR (mL/min/1.73m2) G8Vzaerr or high>=90 A5Aknunh jrvdevpyg48-04 T7cHukajt to moderately ovyapumko91-15 L0iNchzyxjdgx to severely zdwwduvxn81-21 C4Fiwcuzku -38 E7Vdlnzk Failure<15 Release to patient->Immediate Performed By: #### L [id number] #### [address] CO2 [Moles/Vol] 28 mmol/L Normal [facility] Comment on above: Order Comment: KDIGO 2012 GFR Categories StageDescriptioneGFR (mL/min/1.73m2) W0Femtxs or high>=90 A6Pgtzit iqfwcmyqr99-49 N1uBwbmzw to moderately wbsxzfnxy19-77 V6jHpantggijt to severely trsmqtart43-70 M1Jnnblchf tpupmoxsv70-26 S4Ddpzge Failure<15 Release to patient->Immediate Performed By: #### L [id number] #### [address] CREATININE Normal 0.7-1.3 [facility] Comment on above: Order Comment: KDIGO 2012 GFR Categories StageDescriptioneGFR (mL/min/1.73m2) S5Xuxktf or high>=90 T7Lvuxlt eybioqone90-40 E2tSdjiom to moderately xabpjkomt91-11 Y2jHulwdortyn to severely jpmcgujku60-07 P1Hafibpov dfluqjqng09-23 V6Pbypue Failure<15 Release to patient->Immediate Performed By: #### L [id number] #### [address] Creatinine [Mass/Vol] 0.90 mg/dL Normal [facility] Comment on above: Order Comment: KDIGO 2012 GFR Categories StageDescriptioneGFR (mL/min/1.73m2) X3Bixwsj or high>=90 J5Uwssil sklagylax82-10 C5lTzfvse to moderately gegzkpaae73-33 A8jEhqmpihbdz to severely -14 D1Zaoeonbk awwsapvtr00-04 D1Nnppvn Failure<15 Release to patient->Immediate Performed By: #### L [id number] #### [address] GFR MALE Normal >90 [facility] Comment on above: Order Comment: KDIGO 2012 GFR Categories StageDescriptioneGFR (mL/min/1.73m2) I2Gbsmwh or high>=90 E2Ffcfoz zbbvirtxm88-68 V2pNxdtlo to moderately uqqdubdvp27-87 I6jYoiwuhduxj to severely grvevmeob29-90 Z0Okowtqvs dpdqhmsuf60-04 S8Hwlqnv Failure<15 Release to patient->Immediate Result Comment: Repo rted eGFR is based on the CKD-EPI 2020 equation that does not use a race coefficient. Performed By: #### L [id number] #### [address] GFR MALE >90 Normal [facility] Comment on above: Order Comment: KDIGO 2012 GFR Categories StageDescriptioneGFR (mL/min/1.73m2) L3Iwrvae or high>=90 E9Aseltx uvfgxcbsi49-02 U0gBkxkaw to moderately moqbaupnp66-35 U3eFbhhffiutf to severely -57 I5Nhjetopt acywircca65-96 M2Wulwlo Failure<15 Release to patient->Immediate Performed By: #### L [id number] #### [address] GLUCOSE Normal [facility] Comment on above: Order Comment: KDIGO 2012 GFR Categories StageDescriptioneGFR (mL/min/1.73m2) X2Zcxwan or high>=90 F3Vewvfs gpzlyobiw26-01 N4sXpxdne to moderately koeaeauvj68-36 A3jTzyftpylrx to severely qpzojahyq80-08 U0Pxmsppgy ejkmnleuc04-36 C8Pxumiq Failure<15 Release to patient->Immediate Performed By: #### L [id number] #### [place] [id number] [facility] Glucose [Mass/Vol] 145 mg/dL Normal [facility] Comment on above: Order Comment: KDIGO 2012 GFR Categories StageDescriptioneGFR (mL/min/1.73m2) M0Sgshdf or high>=90 W9Mnvbvd ponissdgn36-16 K1bBofoeh to moderately bisjetjzh78-62 S7nSkkanmgrwa to severely tyzepuhrj90-39 Q9Tujfrcqk jdkcwnajs47-80 P6Oiiglb Failure<15 Release to patient->Immediate Performed By: #### L [id number] #### [address] Phosphate [Mass/Vol] 2.3 mg/dL Normal [facility] Comment on above: Order Comment: KDIGO 2012 GFR Categories StageDescriptioneGFR (mL/min/1.73m2) Q6Toqjdx or high>=90 K0Ompcdl xgjfhuqta80-62 Z2cKoetim to moderately tmfwmpych27-14 A1tFwwhzdnsll to severely vzyjaurkh13-93 O9Jhckybzz qggjdovlr50-64 R0Cwuuhk Failure<15 Release to patient->Immediate Performed By: #### L [id number] #### [address] PHOSPHORUS Normal 2.5-5.0 [facility] Comment on above: Order Comment: IGO 2012 GFR Categories StageDescriptioneGFR (mL/min/1.73m2) U9Pudiqw or high>=90 Q4Otovgn ikvsqfvwx32-72 E7bYaxwjx to moderately tohvxsill70-84 N3bRxdhaaswvw to severely ktcrejaep81-34 O2Orjtzfhq -88 K2Ofxrlv Failure<15 Release to patient->Immediate Performed By: #### L [id number] #### [address] POTASSIUM Normal 3.5-5.1 [facility] Comment on above: Order Comment: KDIGO 2012 GFR Categories StageDescriptioneGFR (mL/min/1.73m2) N7Biicrh or high>=90 F7Zcnlcv rtelywzqu21-38 R4qWkxmrd to moderately flrsfawfm15-94 M4iMlwztdkjsk to severely orzkdebfi92-68 G2Ifrraadv -64 D0Nfmttw Failure<15 Release to patient->Immediate Performed By: #### L [id number] #### [place] [address] Potassium [Moles/Vol] 4.0 mmol/L Normal [facility] Comment on above: Order Comment: KDIGO 2012 GFR Categories StageDescriptioneGFR (mL/min/1.73m2) B4Eljefm or high>=90 U4Gpyxhz uavwzvmtw28-88 K1wQpsiby to moderately tzdientzo18-96 Z5iPpgnuqockf to severely donissolr23-97 C2Ecfzihkx mwqnsisoy09-02 J0Jndcpv Failure<15 Release to patient->Immediate Performed By: #### L [id number] #### [place] [id number] [facility] SODIUM Normal 136-145 [facility] Comment on above: Order Comment: KDIGO 2012 GFR Categories StageDescriptioneGFR (mL/min/1.73m2) X8Amiruf or high>=90 O7Ctvmkz ejbmrpqzt66-45 U4xKlahgr to moderately arqbwmefn49-94 X0xGchyyqeaue to severely livgaoxhf77-41 R3Xllojkjz cicaigjfe76-27 G2Idbqos Failure<15 Release to patient->Immediate Performed By: #### L [id number] #### [place] [id number] [facility] Sodium [Moles/Vol] 135 mmol/L Normal [facility] Comment on above: Order Comment: KDIGO 2012 GFR Categories StageDescriptioneGFR (mL/min/1.73m2) Y3Muobvi or high>=90 J0Boqtjt qaazkviyf34-08 O9xJyyghq to moderately utjdemotr78-33 W0tXmkxzuyirj to severely bqlakowfo81-89 G3Xcbvcpam wghjyrvoi42-83 C4Ciaqok Failure<15 Release to patient->Immediate Performed By: #### L [id number] #### [place] [id number] [facility] Urea nitrogen [Mass/Vol] 10 mg/dL Normal [facility] Comment on above: Order Comment: KDIGO 2012 GFR Categories StageDescriptioneGFR (mL/min/1.73m2) M3Yvmhou or high>=90 H4Iuoovr yexwuaxjd05-29 P5cDbiyrb to moderately imddnfskn98-97 C0iOshjqmjiwc to severely akjxvhybg38-58 S7Qgpyawac nklwqflzo81-77 Q7Xahakc Failure<15 Release to patient->Immediate Performed By: #### L [id number] #### [address] [address] [facility] BASIC METABOLIC PANELon 10-2 ANION GAP Normal 7-16 [facility] Comment on above: Order Comment: KDIGO 2012 GFR Categories StageDescriptioneGFR (mL/min/1.73m2) O2Vmqidr or high>=90 E3Nrhsei vfqtdhaxx44-41 W8gAnqthi to moderately pseyzhkoc60-00 N3gVrvwkskuuw to severely knappymvg75-93 H0Tdnskbjg jmedpunvg65-03 P2Namelw Failure<15 Release to patient->Immediate Performed By: #### L [id number] #### [place] [id number] [facility] Anion gap [Moles/Vol] 9 mmol/L Normal [facility] Comment on above: Order Comment: KDIGO 2012 GFR Categories StageDescriptioneGFR (mL/min/1.73m2) H2Pmayxm or high>=90 I5Dymore pjsjuyixf17-29 O6vVjpnwh to moderately nodtezatv47-54 W7lEkjqqdenhj to severely blrwnzpnu12-70 U7Kceqleqa oxrmzpmeb02-24 S3Uqprvw Failure<15 Release to patient->Immediate Performed By: #### L [id number] #### [place] [id number] [facility] BLOOD UREA NITROGEN Normal 7-25 [facility] Comment on above: Order Comment: KDIGO 2012 GFR Categories StageDescriptioneGFR (mL/min/1.73m2) K8Ptcpju or high>=90 Y4Pvhxov rijawtleb63-73 K6bRwiuqp to moderately uaqojqnwj28-44 V5aNspcplsake to severely touftcidt38-00 C3Askjgxtr oagrdgedl20-65 Y6Sflwnb Failure<15 Release to patient->Immediate Performed By: #### L [id number] #### [address] [address] [facility] CALCIUM Normal 8.6-10.2 [facility] Comment on above: Order Comment: KDIGO 2012 GFR Categories StageDescriptioneGFR (mL/min/1.73m2) H3Napvjd or high>=90 C1Tdjogy zomsaahcl66-04 B0oIntzas to moderately iuwwhilqj73-37 X4gFjtfxjaiua to severely jmanbfvpc23-13 M9Hmuzmxvk -99 E3Scacqe Failure<15 Release to patient->Immediate Performed By: #### L [id number] #### [address] Calcium [Mass/Vol] 9.5 mg/dL Normal [facility] Comment on above: Order Comment: KDIGO 2012 GFR Categories StageDescriptioneGFR (mL/min/1.73m2) Q4Ztppaf or high>=90 E6Ysaern qscbnhihc98-26 D3hBvdmjk to moderately zqkekcyfa07-57 R2cTkdiriwklp to severely ngoqslbkt33-99 W9Dystjvtk csvrjitgk52-15 O0Yrymkr Failure<15 Release to patient->Immediate Performed By: #### L AB15 #### [address] CARBON DIOXIDE Normal 21-31 [facility] Comment on above: Order Comment: KDIGO 2012 GFR Categories StageDescriptioneGFR (mL/min/1.73m2) Y7Edeuwy or high>=90 H1Gemuzh pqwdtomaq78-49 K1rSmhczm to moderately yphpfknzm13-53 Z7bUqabgaardt to severely ezszwtqfs18-60 N6Kuwuvwby ngzliuseq28-30 G3Assidy Failure<15 Release to patient->Immediate Performed By: #### L [id number] #### [place] [address] [place] CHLORIDE Normal 98-107 [facility] Comment on above: Order Comment: KDIGO 2012 GFR Categories StageDescriptioneGFR (mL/min/1.73m2) Y6Yzrmsd or high>=90 W5Lbzgzv -82 X6jEbwfni to moderately lgcbsrorn28-52 B0qTitgihvuyf to severely xjyjsgpos77-31 N3Nqkjepth frmlczeig06-48 Z3Oyuijs Failure<15 Release to patient->Immediate Performed By: #### L [id number] #### [address] Chloride [Moles/Vol] 104 mmol/L Normal [facility] Comment on above: Order Comment: KDIGO 2012 GFR Categories StageDescriptioneGFR (mL/min/1.73m2) I1Vulgev or high>=90 C7Halnbf yflgkayyd15-19 U9eCpubum to moderately gzibfcjpv08-87 R8rLnlcfkjdfz to severely irqrganux80-03 N7Hkrptlrf ueqgkdytu69-57 S9Okijwq Failure<15 Release to patient->Immediate Performed By: #### L [id number] #### [address] CO2 [Moles/Vol] 25 mmol/L Normal [facility] Comment on above: Order Comment: KDIGO 2012 GFR Categories StageDescriptioneGFR (mL/min/1.73m2) Z6Qrgpuk or high>=90 Y9Mskrod hmjjnrbao76-73 H7oSnpnxd to moderately kedduvgbb05-93 I2lWrtykiuafl to severely cvqsjzork45-92 F1Frwvvenj ycksdhaov60-70 A2Ocagqc Failure<15 Release to patient->Immediate Performed By: #### L [id number] #### [address] CREATININE Normal 0.7-1.3 [facility] Comment on above: Order Comment: KDIGO 2012 GFR Categories StageDescriptioneGFR (mL/min/1.73m2) W8Zwswjn or high>=90 Z8Osrvab bgessucxa74-63 H9vVtmgtd to moderately xttazhgtl99-89 F6zEnavbszasd to severely egplzdouf34-91 Z8Djfjbdqr tmdyyxeyx76-42 U2Qqbmyn Failure<15 Release to patient->Immediate Performed By: #### L [id number] #### [address] Creatinine [Mass/Vol] 0.86 mg/dL Normal [facility] Comment on above: Order Comment: KDIGO 2012 GFR Categories StageDescriptioneGFR (mL/min/1.73m2) G9Kwjscp or high>=90 H9Eassfw psiixdild96-50 U3wShxpfo to moderately kjfjwlpci15-54 D7mDkmaimxxgb to severely wmkinrtvk00-33 V4Fpwohpel xzuyrtkod83-45 A0Dbyejf Failure<15 Release to patient->Immediate Performed By: #### L AB15 #### [address] GFR MALE Normal >90 [facility] Comment on above: Order Comment: KDIGO 2012 GFR Categories StageDescriptioneGFR (mL/min/1.73m2) K7Kidwxp or high>=90 B9Prijea wllvawhcg79-16 U4vTsdspj to moderately hgupxishd38-90 U3cMjjfxubfty to severely hyhkuyrrz59-84 Y3Wcnarutu kuttviozy46-26 I9Zrogeg Failure<15 Release to patient->Immediate Result Comment: Repo rted eGFR is based on the CKD-EPI 2020 equation that does not use a race coefficient. Performed By: #### L [id number] #### [address] GFR MALE >90 Normal [facility] Comment on above: Order Comment: KDIGO 2012 GFR Categories StageDescriptioneGFR (mL/min/1.73m2) B3Vgocit or high>=90 H0Fetpxh agrnearfb73-86 Y4kUtzefg to moderately vosllocvm97-82 L5lRvevpuxicz to severely inuittaya24-12 B2Sukyrgez gbpjcavtr59-34 C1Toilcq Failure<15 Release to patient->Immediate Performed By: #### L AB15 #### [address] GLUCOSE Normal 74-109 [facility] Comment on above: Order Comment: KDIGO 2012 GFR Categories StageDescriptioneGFR (mL/min/1.73m2) F6Uqqpeq or high>=90 O0Losnmp edhzmfmge67-27 Y6jRtzqkn to moderately wuwskskmv42-87 T3vNfuxhdkyxb to severely -12 E0Ljzdbqyc ulneflpgh71-70 F1Ydvpvs Failure<15 Release to patient->Immediate Performed By: #### L AB15 #### [address] Glucose [Mass/Vol] 98 mg/dL Normal [facility] Comment on above: Order Comment: KDIGO 2012 GFR Categories StageDescriptioneGFR (mL/min/1.73m2) I1Uohfse or high>=90 S5Xvpdqy kkyeuatgw10-25 X2yLlcsyf to moderately -96 S1xDlfexxncoo to severely iahzrxyjj17-39 R5Ormczrjq -72 J2Ickhoo Failure<15 Release to patient->Immediate Performed By: #### L AB15 #### [place] [id number] [address] POTASSIUM Normal 3.5-5.1 [facility] Comment on above: Order Comment: KDIGO 2012 GFR Categories StageDescriptioneGFR (mL/min/1.73m2) V5Kvbyfi or high>=90 W8Rprvwy likivswcm14-12 B8nLfwdmn to moderately buxowdvgo82-60 N1iFsowypvcsv to severely ogrctnfur49-40 F8Sotlprql ninwoogsr39-05 F7Faoktn Failure<15 Release to patient->Immediate Performed By: #### L AB15 #### [address] Potassium [Moles/Vol] 3.9 mmol/L Normal [facility] Comment on above: Order Comment: KDIGO 2012 GFR Categories StageDescriptioneGFR (mL/min/1.73m2) S4Tnrexj or high>=90 F0Aychql uctxupooi40-69 Z9fEegens to moderately othlmpjzg23-94 U4pElxtlsqckq to severely moazfebhd03-72 H7Kpzhfsbu vyorxvaic00-01 S1Nhsufd Failure<15 Release to patient->Immediate Performed By: #### L AB15 #### [address] SODIUM Normal 136-145 [facility] Comment on above: Order Comment: KDIGO 2012 GFR Categories StageDescriptioneGFR (mL/min/1.73m2) C5Cmrpsp or high>=90 O4Zwjmhn lonuttzoj27-60 Q4pIodeaj to moderately altsfvonl34-08 Y1cNyerqygwsx to severely rbkpqeyry80-81 J3Vdofsfop wunslrmrs32-80 Q9Urfwre Failure<15 Release to patient->Immediate Performed By: #### L AB15 #### [place] [id number] [facility] Sodium [Moles/Vol] 138 mmol/L Normal [facility] Comment on above: Order Comment: [facility] 2012 GFR Categories StageDescriptioneGFR (mL/min/1.73m2) D3Pjsgcz or high>=90 C6Ubudrp voznuzued12-68 L9jVryfgo to moderately sqgukbsdm49-96 F6eJzuwqtkfgd to severely ayzdzsvbf25-68 J1Tjegtlaa gipkihigz99-96 B6Xprsek Failure<15 Release to patient->Immediate Performed By: #### L AB15 #### [address] Urea nitrogen [Mass/Vol] 12 mg/dL Normal [facility] Comment on above: Order Comment: [facility] 2012 GFR Categories StageDescriptioneGFR (mL/min/1.73m2) I5Jbjpht or high>=90 V2Vmtrsf npbhomhad23-59 O9eGahdft to moderately slodemmqp99-38 Q0oKlsfdyxnut to severely zjwjoxkua43-34 Q3Pfhrqcde yixzrjmxd83-36 N5Wkeuij Failure<15 Release to patient->Immediate Performed By: #### L AB15 #### [address] CBC W/DIFFon 03-06-2023 BASOPHILS ABS AUTO Normal 0.0-0.1 [facility] Comment on above: Order Comment: Relea se to patient->Immediate Performed By: #### L AB293 ####[address] BASOPHILS ABS AUTO 0.1 Normal [facility] Comment on above: Order Comment: Relea se to patient->Immediate Performed By: #### L AB293 ####[place] [id number] [facility] BASOPHILS RELATIVE AUTO Normal [facility] Comment on above: Order Comment: Relea se to patient->Immediate Performed By: #### L AB293 ####[place] [id number] [facility] BASOPHILS RELATIVE AUTO 1.0 Normal [facility] Comment on above: Order Comment: Relea se to patient->Immediate Performed By: #### L AB293 ####[address] EOSINOPHIL ABS AUTO Normal 0.0-0.4 [facility] Comment on above: Order Comment: Relea se to patient->Immediate Performed By: #### L AB293 ####[address] EOSINOPHIL ABS AUTO 0.3 Normal [facility] Comment on above: Order Comment: Relea se to patient->Immediate Performed By: #### L AB293 ####[address] EOSINOPHILS RELATIVE AUTO Normal [facility] Comment on above: Order Comment: Relea se to patient->Immediate Performed By: #### L AB293 ####[address] EOSINOPHILS RELATIVE AUTO 4.4 Normal [facility] Comment on above: Order Comment: Relea se to patient->Immediate Performed By: #### L AB293 ####[address] Erythrocyte distribution width (RBC) [Ratio] 12.6 % Normal [facility] Comment on above: Order Comment: Relea se to patient->Immediate Performed By: #### L AB293 ####[address] HEMATOCRIT BLOOD Normal 39.0-51.5 [facility] Comment on above: Order Comment: Relea se to patient->Immediate Performed By: #### L AB293 ####[address] HEMATOCRIT BLOOD 48.9 Normal [facility] Comment on above: Order Comment: Relea se to patient->Immediate Performed By: #### L AB293 ####[address] HEMOGLOBIN Normal 13.1-17.6 [facility] Comment on above: Order Comment: Relea se to patient->Immediate Performed By: #### L AB293 ####[address] Hemoglobin (Bld) [Mass/Vol] 16.9 g/dL Normal [facility] Comment on above: Order Comment: Relea se to patient->Immediate Performed By: #### L AB293 ####[address] LYMPHOCYTE ABS AUTO Normal 0.8-3.6 [facility] Comment on above: Order Comment: Relea se to patient->Immediate Performed By: #### L AB293 ####[address] LYMPHOCYTE ABS AUTO 1.6 Normal [facility] Comment on above: Order Comment: Relea se to patient->Immediate Performed By: #### L AB293 ####[address] LYMPHOCYTES RELATIVE AUTO Normal [facility] Comment on above: Order Comment: Relea se to patient->Immediate Performed By: #### L AB293 ####[address] LYMPHOCYTES RELATIVE AUTO 23.3 Normal [facility] Comment on above: Order Comment: Relea se to patient->Immediate Performed By: #### L AB293 ####[address] MCH Normal 28.4-33.4 [facility] Comment on above: Order Comment: Relea se to patient->Immediate Performed By: #### L AB293 ####[address] MCH (RBC) [Entitic mass] 31.8 pg Normal [facility] Comment on above: Order Comment: Relea se to patient->Immediate Performed By: #### L AB293 ####[address] MCHC Normal 31.1-37.0 [facility] Comment on above: Order Comment: Relea se to patient->Immediate Performed By: #### L AB293 ####[address] MCHC (RBC) [Mass/Vol] 34.6 g/dL Normal [facility] Comment on above: Order Comment: Relea se to patient->Immediate Performed By: #### L AB293 ####[address] MCV Normal 85.0-99.0 [facility] Comment on above: Order Comment: Relea se to patient->Immediate Performed By: #### L AB293 ####[address] MCV (RBC) [Entitic vol] 91.9 fL Normal [facility] Comment on above: Order Comment: Relea se to patient->Immediate Performed By: #### L AB293 ####[address] MONOCYTE ABS AUTO Normal 0.3-0.9 [facility] Comment on above: Order Comment: Relea se to patient->Immediate Performed By: #### L AB293 ####[address] MONOCYTE ABS AUTO 0.5 Normal [facility] Comment on above: Order Comment: Relea se to patient->Immediate Performed By: #### L AB293 ####[address] MONOCYTES RELATIVE AUTO Normal [facility] Comment on above: Order Comment: Relea se to patient->Immediate Performed By: #### L AB293 ####[address] MONOCYTES RELATIVE AUTO 7.4 Normal [facility] Comment on above: Order Comment: Relea se to patient->Immediate Performed By: #### L AB293 ####[address] NEUTROPHIL ABS AUTO Normal 2.0-7.3 [facility] Comment on above: Order Comment: Relea se to patient->Immediate Performed By: #### L AB293 ####[place] [address] [place] NEUTROPHIL ABS AUTO 4.5 Normal [facility] Comment on above: Order Comment: Relea se to patient->Immediate Performed By: #### L AB293 ####[address] [address] [facility] NEUTROPHILS RELATIVE AUTO Normal [facility] Comment on above: Order Comment: Relea se to patient->Immediate Performed By: #### L AB293 ####[address] [address] [facility] NEUTROPHILS RELATIVE AUTO 63.9 Normal [facility] Comment on above: Order Comment: Relea se to patient->Immediate Performed By: #### L AB293 ####[place] [address] [facility] PLATELET COUNT Normal 154-393 [facility] Comment on above: Order Comment: Relea se to patient->Immediate Performed By: #### L AB293 ####[place] [id number] [facility] Platelets (Bld) [#/Vol] 191 10*3/uL Normal [facility] Comment on above: Order Comment: Relea se to patient->Immediate Performed By: #### L AB293 ####[address] RBC (Bld) [#/Vol] 5.32 10*6/uL Normal [facility] Comment on above: Order Comment: Relea se to patient->Immediate Performed By: #### L AB293 ####[address] RDW Normal 11.7-15.2 [facility] Comment on above: Order Comment: Relea se to patient->Immediate Performed By: #### L AB293 ####[place] [id number] [facility] RED BLOOD CELL COUNT Normal 4.30-5.86 [facility] Comment on above: Order Comment: Relea se to patient->Immediate Performed By: #### L AB293 ####[address] [address] [place] WBC (Bld) [#/Vol] 7.0 10*3/uL Normal [facility] Comment on above: Order Comment: Relea se to patient->Immediate Performed By: #### L AB293 ####[address] WHITE BLOOD CELL COUNT Normal 4.0-10.5 [facility] Comment on above: Order Comment: Relea se to patient->Immediate Performed By: #### L AB293 ####[address] Consultson 03-06-2023 Consults Encounter Department : [address] SURG Consults by Heladio Bateman MD at 03/06/2023 5:39 PM Author: JUSTINO Lawervice: HospitalistAuthor Type: Physician Filed: 03/07/2023 7:39 AMDate of Service: 03/06/2023 5:39 PMStatus: Signed Routeman: Heladio Bateman MD (Physician) Medicine Consult Name: Joi Madrigal Date/Time of Admission: 03/06/2023 10:25 AM CSN: [id number] Attending Provider: Dhaval Page DO Room/Bed: R4628/[id number] : 1960 AGE:63 y.o. Primary Care Physician: [...] HISTORY: Past Medical History: DiagnosisDate -Exercise tolerance [id number]/01/2023 Able to walk a flight of stairs w/o cp or sob. No cane or walker. 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 MusculoskeletalNo (more content not included)... Normal [facility] EKG STANDARD 12 LEADon 03-06 EKG STANDARD 12 LEAD Normal [facility] EKG STANDARD 12 LEAD HEART RATE= 75 bpm RR Interval= 800 ms P-R Interval= 185 ms QRSD Interval= 114 ms QT Interval= 387 ms QTcB= 433 ms QRS [place]= -31 deg T Wave [place]= 3 deg Report= - NORMAL ECG - Report= Sinus rhythm Report= ivcd, nsst changes INTERPRETING PHYS= Confirmed by: Bandar Wylie) 02-Apr-2023 01:16:19 [facility] Op Noteon 03-06-2023 Op Note Encounter Department : [place] [address] [facility] SURG Op Note by Dhaval Page DO at 03/06/2023 12:53 PM Author: Holden Liangrvice: UrologyAuthor Type: Physician Filed: 03/06/2023 6:29 PMDate of Service: 03/06/2023 12:53 PMStatus: Addendum Routeman: Dhaval Page DO (Physician) Related Notes: Original [...] PENILE PROTHESIS PLACEMENT 2.ARTIFICIAL ERECTION WITH MODELING (78895, 34938) 3. SCROTOPLASTY (73862) COMPLICATIONS: None ANESTHESIA: General ASA: II EBL: 50 cc IMPLANT(S): Implant NameTypeInv. ItemSerial No.ManufacturerLot No.LRBNo. UsedAction PENILE ACCESS PKPENILE ACCESS [facility] [id number] mplanted BALLO RESERV PENILE AMS 700 100MLBALLO RESERV PENILE AMS 700 100MLVERDE VALLEY MEDICAL CENTERMiaSolé [id number] mplanted PENILE CX MS 21CM PS IZPENILE CX MS 21CM PS [id number] mplanted Rear Rip [facility] [id number] mplanted FINDINGS: AMS 700-CX, 21 cm + [...] in a standard sterile surgical fashion. A 16-Tajik Brody catheter was placed easily with 10 mL of sterile water in the balloon and placed to gravity bag drainage throughout the case. The hook was placed in the urethral meatus and the phallus was placed on stretch using the Sidney Retractor System. A 3 cm transverse troy shaped penoscrotal incision was then made to remove the scrotal web and dissection was carried down to the corpora cavernosa bilaterally with sharp dissection. [place] with the Sidney retractor system was used for adequate exposure. [...] 21 cm cylinder with 1 cm rear-tip patent searcher and 100 mL Conceal reservoir was prepared [...] that point, th (more content not included)... [facility] SURGICAL PATHOLOGY RESULTSon 11-07-2022 Pathology Report Name JOI MADRIGAL Pathologist: CHAPIN DAVIS M.D., PhD. Date of Procedure: 10/20/2022 Date Received: 10/21/2022 Date Reported 11/07/2022 Submitting Physician: KIKI MONTIEL DO Location: [facility] Copy To/Referring/Attending : SUNSHINE SOLANO, HOST/HOSTESS 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 Other External # FINAL DIAGNOSIS A. ANTRAL [...] reviewed this case. Diagnostic interpretation performed at [facility] [address] [facility] [address] Clinical History: GERD Specimens Submitted As: A: [...] in toto in one cassette. RMP rmp/10/27/2022 [facility] Department of Pathology [address] [place] [address] Colonoscopyon 10-20-2022 Colonoscopy PATIENTNAME Patient Name: Joi Madrigal EXAMDATE Procedure Date: 10/20/2022 11:49 AM PATIENTID PATIENTACCOUNTNUM PATIENTDOB Date of : 1960 ADMITTYPE Admit Type: Outpatient PATIENTROOM Site: [place] [address] ETHNICITY Ethnicity: Not or RACE Race: White PROVDR Attending MD: Kiki Montiel DO, [id number] ENDOPROCEDURENAME Procedure: Colonoscopy INDICATION Indications: Screening for [...] purposes. CPT_CODES Procedure Code(s): --- Professional --- 29774, Colonoscopy, flexible; diagnostic, including collection of specimen(s) by brushing or washing, when performed (separate procedure) ICD_CODES Diagnosis Code(s): --- Professional --- Z12.11, Encounter for screening for malignant neoplasm of colon CODINGSTMT CPT copyright 2020 [employer]. All rights reserved. The codes documented in this report are preliminary and upon training systems officer review may be revised to meet current compliance requirements. ATTDRPART Attending Participation: I personally performed the entire procedure. SIGNATURENAME Kiki Montiel DO SIGNATUREDATE 10/20/2022 12:13:32 PM SIGNATUREONFILEIND This report has been signed electronically. NUMADDENDA Number of Addenda: 0 INITIATEDON Note Initiated On: 10/20/2022 11:49 AM WSCOPETIME (more content not included)... Normal [facility] Kiki Montiel DO - 11/06/2022 Patient Name: Joi Madrigal Procedure Date: 10/20/2022 11:49 AM Date of : 1960 Admit Type: Outpatient Site: [facility] 1 Ethnicity: Not or Race: White Attending MD: Kiki Montiel DO, [phone] Procedure: Colonoscopy Indications: Screening for colorectal malignant [...] screening purposes. Procedure Code(s): --- Professional --- 64521, Colonoscopy, flexible; diagnostic, including collection of specimen(s) by brushing or washing, when performed (separate procedure) Diagnosis Code(s): --- Professional --- Z12.11, Encounter for screening for malignant neoplasm of colon CPT copyright 2020 [employer]. All rights reserved. The codes documented in this report are preliminary and upon training systems officer review may be revised to meet current compliance requirements. Attending Participation: I personally performed the entire procedure. Kiki Montiel DO 10/20/2022 12:13:32 PM This report has been signed electronically. Number of Addenda: 0 Note Initiated On: 10/20/2022 11:49 AM Scope Withdrawal Time 0 hours 9 minutes 9 seconds Total Procedure Duration Time 0 hours 15 minutes 42 seconds [facility] Work Phone: [facility] Work Phone: Radiology Study observation (narrative) [facility] Work Phone: Mariel 10-20-2022 Kiki Montiel DO - 11/06/2022 Patient Name: Joi Madrigal Procedure Date: 10/20/2022 11:21 AM Date of : 1960 Admit Type: Outpatient Site: [facility] 1 Ethnicity: Not or Race: White Attending MD: Kiki Montiel DO, [phone] Procedure: Upper GI endoscopy Indications: Heartburn Providers: [...] patient's life. Procedure Code(s): --- Professional --- 35292, Esophagogastroduodenos copy, flexible, transoral; with biopsy, single or multiple Diagnosis Code(s): --- Professional --- K21.00, Gastro-esophageal reflux disease with esophagitis, without bleeding R12, Heartburn CPT copyright 2020 [employer]. All rights reserved. The codes documented in this report are preliminary and upon training systems officer review may be revised to meet current compliance requirements. Attending Participation: I personally performed the entire procedure. Kiki Montiel DO 10/20/2022 12:21:33 PM This report has been signed electronically. Number of Addenda: 0 Note Initiated On: 10/20/2022 11:21 AM Scope Withdrawal Time 0 hours 5 minutes 16 seconds Total Procedure Duration Time 0 h (more content not included)... [facility] Work Phone: Radiology Study observation (narrative) [facility] Work Phone: EGDOrdered By: Kiki byrd 10-20-2022 [facility] Work Phone: No Panel Informationon 10-20 [email or web address] /[email or web address] .aspx?={[id number] [id number]} [facility] Work Phone: [email or web address]?={[email or web address]} [facility] Work Phone: [facility] Work Phone: [facility] Work Phone: [facility] Surgical Pathology Depar tmenton 10-20-2022 [facility] Surgical Pathology Department Name JOI MADRIGAL Jr Pathologist: CHAPIN DAVIS M.D., PhD. Date of Procedure: 10/20/2022 Date Received: 10/21/2022 Date Reported 11/07/2022 Submitting Physician: KIKI MONTIEL DO Location: [facility] Copy To/Referring/Attending : SUNSHINE SOLANO, HOST/HOSTESS 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 Other External # FINAL DIAGNOSIS A. ANTRAL [...] reviewed this case. Diagnostic interpretation performed at [place] [address] Clinical History: GERD Specimens Submitted As: A: [...] is submitted in toto in one cassette. [facility] Department of Pathology [address] [place] [address] Normal [facility] Comment on above: Performed By: #### [facility] #### [facility] Surgical Pathology Department [address] [place] [address] Upper GI endoscopyon 023 Upper GI endoscopy PATIENTNAME Patient Name: Joi Madrigal EXAMDATE Procedure Date: 10/20/2022 11:21 AM PATIENTID PATIENTACCOUNTNUM PATIENTDOB Date of : 1960 ADMITTYPE Admit Type: Outpatient PATIENTROOM Site: [facility] 1 ETHNICITY Ethnicity: Not or RACE Race: White PROVDR Attending MD: Kiki Montiel DO, [phone] ENDOPROCEDURENAME Procedure: Upper GI endoscopy INDICATION Indications: [...] life. CPT_CODES Procedure Code(s): --- Professional --- 59218, Esophagogastroduodenos copy, flexible, transoral; with biopsy, single or multiple ICD_CODES Diagnosis Code(s): --- Professional --- K21.00, Gastro-esophageal reflux disease with esophagitis, without bleeding R12, Heartburn CODINGSTMT CPT copyright 2020 [employer]. All rights reserved. The codes documented in this report are preliminary and upon training systems officer review may be revised to meet current compliance requirements. ATTDRPART Attending Participation: I personally performed the entire proc (more content not included)... Normal [facility] ALPHA-FETOPROTEINon 10-07-19 23 ALPHA-FETOPROTEIN <4 Normal 0 - 9 [facility] Comment on above: Result Comment: AFP testing is performed by chemiluminescent immunoassay using the Siemens Debt Resolve. Values obtained with different analyte methods cannot be used interchangeably. This test can be used as an adjunct in the diagnosis and monitoring of AFP-producing tumors, including non-seminomatous germ cell tumors and hepatocellular carcinomas. Performed By: #### A #### [facility] [address] [place] [address] CANCER AG 125on 10-06-2022 Cancer Ag 125 Qn 6.1 [arb'U]/mL Normal 0.0 - 30.2 [facility] Comment on above: Result Comment: CA 1 25 testing is performed by chemiluminescent immunoassay using the Siemens SmashrunllRetewi. Values obtained with different analytic methods cannot [...] decisions. Performed By: #### C A125 #### [facility] [address] [place] CEAon 10-06-2022 CEA 2.9 ug/L Abnormal [facility] Comment on above: Result Comment: CEA testing is performed by chemiluminescent immunoassay using the Siemens AtellRetewi. Values obtained with different analytic methods cannot [...] 0-5.0 Performed By: #### C EA #### [facility] [address] [place] C-REACTIVE PROTEINon 023 C-REACTIVE PROTEIN 0.50 mg/dL Normal [facility] Comment on above: Result Comment: REF VALUE < 1.00 Performed By: #### C RP #### [place] [address] CANCER AG 125on 10-05-2022 Lab Specimen Source Normal [facility] Comment on above: Performed By: #### C A125 #### [facility] [address] [place] Performed By: #### A FP #### [facility] [address] [place] Performed By: #### C EA #### [facility] [address] [place] Performed By: #### C RP #### [address] [address] ECG 12 lead (Clinic Performe d)on 09-11-2022 [facility] Work Phone: NSR with T wave abnormality [facility] Work Phone: [facility] Work Phone: TRAVIS-WITHOUT REFLEX TO ENAon 08-03-2022 Nuclear Ab IF (S) [Titer] Negative Normal NEGATIVE [facility] Comment on above: Result Comment: The Antinuclear Antibody (TRAVIS) test was performed using indirect immunofluorescence assay with HEp-2 cells slide. Performed By: #### A NAN2 #### [facility] [address] [place] [address] CBCon 08-02-2022 Erythrocyte distribution width (RBC) [Ratio] 11.9 % Normal 11.5 - 14.5 [facility] Comment on above: Performed By: #### C BC #### [address] [address] Hematocrit (Bld) [Volume fraction] 48.4 % Normal 41.0 - 52.0 [facility] Comment on above: Performed By: #### C BC #### [address] [address] Hemoglobin (Bld) [Mass/Vol] 16.6 g/dL Normal 13.5 - 17.5 [facility] Comment on above: Performed By: #### C BC #### [address] [address] MCHC (RBC) [Mass/Vol] 34.3 g/dL Normal 32.0 - 36.0 [facility] Comment on above: Performed By: #### C BC #### [address] [address] MCV (RBC) [Entitic vol] 94 fL Normal 80 - 100 S [facility] Comment on above: Performed By: #### C BC #### [address] [address] Platelets (Bld) [#/Vol] 208 10*3/uL Normal 150 - 450 [facility] Comment on above: Performed By: #### C BC #### [address] [address] RBC 5.17 x10E12/L Normal 4.50 - 5.90 [facility] Comment on above: Performed By: #### C BC #### [address] [address] WBC (Bld) [#/Vol] 7.8 10*3/uL Normal 4.4 - 11.3 [facility] Comment on above: Performed By: #### C BC #### [address] [address] COMPREHENSIVE PANELon 2022 Albumin [Mass/Vol] 4.8 g/dL Normal 3.4 - 5.0 [facility] Comment on above: Performed By: #### C MP #### [address] [address] ALP [Catalytic activity/Vol] 63 U/L Normal 33 - 136 [facility] Comment on above: Performed By: #### C MP #### [address] [address] ALT [Catalytic activity/Vol] 38 U/L Normal 10 - 52 [facility] Comment on above: Result Comment: Wen ents treated with Sulfasalazine may generate falsely decreased results for ALT. Performed By: #### C MP #### [address] [address] Anion gap [Moles/Vol] 10 mmol/L Normal 10 - 20 [facility] Comment on above: Performed By: #### C MP #### [address] [address] AST [Catalytic activity/Vol] 25 U/L Normal 9 - 39 [facility] Comment on above: Performed By: #### C MP #### [address] [address] Bilirubin [Mass/Vol] 0.8 mg/dL Normal 0.0 - 1.2 [facility] Comment on above: Performed By: #### C MP #### [address] [address] Calcium [Mass/Vol] 9.6 mg/dL Normal 8.6 - 10.3 [facility] Comment on above: Performed By: #### C MP #### [address] [address] Chloride [Moles/Vol] 103 mmol/L Normal 98 - 107 [facility] Comment on above: Performed By: #### C MP #### [address] [address] Creatinine [Mass/Vol] 0.94 mg/dL Normal 0.50 - 1.30 [facility] Comment on above: Performed By: #### C MP #### [address] [address] eGFR MALE >90 Normal >90 [facility] Comment on above: Result Comment: CALC ULATIONS OF ESTIMATED GFR ARE PERFORMED USING THE 2020 CKD-EPI STUDY REFIT EQUATION WITHOUT THE RACE VARIABLE FOR THE IDMS-TRACEABLE CREATININE METHODS. https://jasn.asnjournals.org/content/early//ASN.2020 434511 Performed By: #### C MP #### [address] [address] Glucose [Mass/Vol] 92 mg/dL Normal 74 - 99 [facility] Comment on above: Performed By: #### C MP #### [address] [address] HCO3 (Bld) [Moles/Vol] 28 mmol/L Normal 21 - 32 [facility] Comment on above: Performed By: #### C MP #### [address] [address] Potassium [Moles/Vol] 4.4 mmol/L Normal 3.5 - 5.3 [facility] Comment on above: Performed By: #### C MP #### [address] [address] Protein [Mass/Vol] 7.2 g/dL Normal 6.4 - 8.2 [facility] Comment on above: Performed By: #### C MP #### [address] [address] Sodium [Moles/Vol] 137 mmol/L Normal 136 - 145 [facility] Comment on above: Performed By: #### C MP #### [address] [address] Urea nitrogen [Mass/Vol] 15 mg/dL Normal 6 - 23 [facility] Comment on above: Performed By: #### C MP #### [address] [address] Lab Specimen Source Normal [facility] Comment on above: Performed By: #### C MP #### [address] [address] Performed By: #### L IPID #### [address] [address] Performed By: #### A NAN2 #### [facility] [address] [place] [address] Performed By: #### C BC #### [address] [address] Performed By: #### P SA #### [address] [address] LIPID PANEL (CORONARY RISK 2 )on 08-02-2022 Cholesterol [Mass/Vol] 193 mg/dL Normal 0 - 199 [facility] Comment on above: Result Comment: [...] dosing. Performed By: #### L IPID #### [address] [address] Cholesterol in HDL [Mass/Vol] 48.0 mg/dL Normal [facility] Comment on above: Result Comment: . AGE VERY LOW LOW NORMAL HIGH 0-19 Y < 35 < 40 40-45 ---- 20-24 Y ---- < 40 >45 ---- >24 Y ---- < 40 40-60 >60 . Performed By: #### L IPID #### [address] [address] Cholesterol in LDL [Mass/Vol] 120 mg/dL High 0 - 99 [facility] Comment on above: Result Comment: . NEAR BORD AGE DESIRABLE OPTIMAL HIGH HIGH VERY HIGH 0-19 Y 0 - 109 --- 110-129 >/= 130 ---- 20-24 Y 0 - 119 --- 120-159 >/= 160 ---- >24 Y 0 - 99 100-129 130-159 160-189 >/=190 . Performed By: #### L IPID #### [address] [address] Cholesterol in VLDL [Mass/Vol] 25 mg/dL Normal 0 - 40 [facility] Comment on above: Performed By: #### L IPID #### [address] [address] Cholesterol.total/Tala sterol in HDL [Mass ratio] 4.0 {ratio} Normal [facility] Comment on above: Result Comment: REF VALUES DESIRABLE < 3.4 HIGH RISK > 5.0 Performed By: #### L IPID #### [address] [address] Triglyceride [Mass/Vol] 126 mg/dL Normal 0 - 149 [facility] Comment on above: Result Comment: . [...] dosing. Performed By: #### L IPID #### [address] [address] PROSTATE SPECIFIC AGon 08-02 Prostate specific Ag [Mass/Vol] 1.15 ng/mL Normal 0.00 - 4.00 [facility] Comment on above: Result Comment: The FDA requires that the method used for PSA assay be reported to the physician. Values obtained with different assay methods must not be used interchangeably. This test was performed at [facility] using the Phraxis PSA assay is a two-site immunoenzymatic sandwich assay. The assay is approved for measurement of prostate-specific antigen (PSA)in serum and may be used in conjunction with a digital rectal examination in men 50 years and older as an aid in detection of prostate cancer. 2-Fkecl-lgxbuhkwd inhibitors (e.g. Proscar, Finasteride, Avodart, Dutasteride and Meredith) for the treatment of BPH have been shown to lower PSA levels by an average of 50% after 6 months of treatment. Performed By: #### P SA #### [address] [address] Vital Signs Date Time Vital Sign Value Performing Clinician Facility 12-26-2024 14:05-0400 Body height 182.[address] Julita Reyes MD Work Phone: [facility] 12-26-2024 14:05-0400 Body mass index (BMI) [Ratio] 27.5 kg/m2 Dr. Julita Reyes MD Work Phone: [facility] 12-26-2024 14:05-0400 Body temperature 98.3 [degF] Dr. Julita Reyes MD Work Phone: [facility] 12-26-2024 14:05-0400 Body weight 92.[address] Julita Reyes MD Work Phone: [facility] 12-26-2024 14:05-0400 Diastolic blood pressure 78 mm[Hg] Dr. Julita Reyes MD Work Phone: [facility] 12-26-2024 14:05-0400 Heart rate 69 /min Dr. Julita Reyes MD Work Phone: [facility] 12-26-2024 14:05-0400 Respiratory rate 18 /min Dr. Julita Reyes MD Work Phone: [facility] 12-26-2024 14:05-0400 SaO2% (BldA) [Mass fraction] 97 % Dr. Julita Reyes MD Work Phone: [facility] 12-26-2024 14:05-0400 Systolic blood pressure 142 mm[Hg] Dr. Julita Reyes MD Work Phone: [facility] 11-05-2024 09:12-0400 Body height 185.4 cm Robeelias Meadowsey DO Work Phone: [facility] 11-05-2024 09:12-0400 Body mass index (BMI) [Ratio] 26.65 kg/m2 Robe Jackson DO Work Phone: [facility] 11-05-2024 09:12-0400 Body weight 91.63 kg Robe Meadowsey DO Work Phone: [facility] 11-05-2024 09:12-0400 Diastolic blood pressure 90 mm[Hg] Robe Jackson DO Work Phone: [facility] 11-05-2024 09:12-0400 Heart rate 68 /min Robe Jackson DO Work Phone: [facility] 11-05-2024 09:12-0400 Respiratory rate 16 /min Orbe Jackson DO Work Phone: [facility] 11-05-2024 09:12-0400 Systolic blood pressure 140 mm[Hg] Robe Meadowsey DO Work Phone: [facility] 08-06-2023 08:43-0400 Body mass index (BMI) [Ratio] 28.96 kg/m2 Kinza Abreu MD Work Phone: [facility] 08-06-2023 08:43-0400 Body temperature 97.81 [degF] Kinza Abreu MD Work Phone: [facility] 08-06-2023 08:43-0400 Body weight 95.53 kg Kinza Abreu MD Work Phone: [facility] 08-06-2023 08:43-0400 Diastolic blood pressure 82 mm[Hg] Kinza Abreu MD Work Phone: [facility] 08-06-2023 08:43-0400 Heart rate 71 /min Kinza Abreu MD Work Phone: [facility] 08-06-2023 08:43-0400 SaO2% (BldA) [Mass fraction] 92 % Kinza Abreu MD Work Phone: [facility] 08-06-2023 08:43-0400 Systolic blood pressure 140 mm[Hg] Kinza Abreu MD Work Phone: [facility] 10-26-2022 10:40-0400 Body height 181.6 cm Sunshine Solano HOST/HOSTESS 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 Work Phone: [facility] 10-26-2022 10:40-0400 Body mass index (BMI) [Ratio] 27.92 kg/m2 Sunshine Solano HOST/HOSTESS 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 Work Phone: [facility] 10-26-2022 10:40-0400 Body weight 92.08 kg Sunshine Solano APRN-AUTOMATIC MACHINE ATTENDANT Work Phone: [facility] 10-26-2022 10:40-0400 Diastolic blood pressure 82 mm[Hg] Sunshine Solano HOST/HOSTESS 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 Work Phone: [facility] 10-26-2022 10:40-0400 Heart rate 77 /min Sunshine Solano HOST/HOSTESS 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 Work Phone: [facility] 10-26-2022 10:40-0400 SaO2% (BldA) [Mass fraction] 98 % Sunshine Solano HOST/HOSTESS 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 Work Phone: [facility] 10-26-2022 10:40-0400 Systolic blood pressure 128 mm[Hg] Sunshine Solano HOST/HOSTESS 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 Work Phone: [facility] 10-18-2022 07:56-0400 Body height 182.8 cm Kiki Montiel DO Work Phone: [facility] 10-18-2022 07:56-0400 Body mass index (BMI) [Ratio] 26.81 kg/m2 Kikimorena Tannerae DO Work Phone: [facility] 10-18-2022 07:56-0400 Body weight 89.6 kg Kiki Tannerae DO Work Phone: [facility] 10-16-2022 14:25-0400 Body mass index (BMI) [Ratio] 28 kg/m2 [facility] 10-16-2022 14:25-0400 Body weight 93.75 kg [facility] 10-16-2022 14:01-0400 Body height 182.88 cm [facility] 10-16-2022 14:01-0400 Body temperature 98 [degF] [facility] 10-16-2022 14:01-0400 Diastolic blood pressure 104 mm[Hg] [facility] 10-16-2022 14:01-0400 Heart rate 78 /min [facility] 10-16-2022 14:01-0400 Respiratory rate 14 /min [facility] 10-16-2022 14:01-0400 SaO2% (BldA) [Mass fraction] 96 % [facility] 10-16-2022 14:01-0400 Systolic blood pressure 167 mm[Hg] [facility] 09-11-2022 15:56-0400 Body height 181.6 cm Sunshine Solano HOST/HOSTESS 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 Work Phone: [facility] 09-11-2022 15:56-0400 Body mass index (BMI) [Ratio] 28.74 kg/m2 Sunshine Morenod HOST/HOSTESS 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 Work Phone: [facility] 09-11-2022 15:56-0400 Body weight 94.8 kg Sunshine Morenod HOST/HOSTESS 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 Work Phone: [facility] 09-11-2022 15:56-0400 Diastolic blood pressure 90 mm[Hg] Sunshine Dallas HOST/HOSTESS 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 Work Phone: [facility] 09-11-2022 15:56-0400 Heart rate 84 /min Sunshine Dallas HOST/HOSTESS 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 Work Phone: [facility] 09-11-2022 15:56-0400 Systolic blood pressure 148 mm[Hg] Sunshine Dallas HOST/HOSTESS 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 Work Phone: [facility] 08-02-2022 08:37-0400 Body height 181.6 cm Sunshine Russ HOST/HOSTESS 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 Work Phone: [facility] 08-02-2022 08:37-0400 Body mass index (BMI) [Ratio] 27.51 kg/m2 Sunshine Dallas HOST/HOSTESS 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 Work Phone: [facility] 08-02-2022 08:37-0400 Body weight 90.72 kg Sunshine Morenod HOST/HOSTESS 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 Work Phone: [facility] 08-02-2022 08:37-0400 Diastolic blood pressure 72 mm[Hg] Sunshine Dallas HOST/HOSTESS 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 Work Phone: [facility] 08-02-2022 08:37-0400 Heart rate 62 /min Sunshine Morenod HOST/HOSTESS 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 Work Phone: [facility] 08-02-2022 08:37-0400 Systolic blood pressure 122 mm[Hg] Sunshine Russ HOST/HOSTESS 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 Work Phone: [facility] Encounters Encounter Date Encounter Type Care Provider Facility Start: 01-02-2025 Encounter for genera l adult medical examination without abnormal findings Gumaro Gonzales [facility] Start: 12-31-2024 End: 01-04-2025 ambulatory MARKUS DUARTE MD Facility:A Start: 12-29-2024 End: 12-29-[address] Julita Reyes MD Work Phone: -Laboratory Start: 12-29-2024 End: 12-29-2024 Patient encounter procedure Gumaro MEHTA -Laboratory Work Phone: Start: 12-29-2024 End: 12-29-2024 ambulatory Gumaro Waylianna Facility:[facility] Start: 12-26-2024 End: 12-26-2024 Patient encounter procedure Gumaro MEHTA [facility] Work Phone: Start: 12-26-2024 End: 12-26-[address] Julita Reyes MD Work Phone: -[facility] Start: 11-10-2024 End: 11-10-2024 Telephone encounter Robe Jackson DO Work Phone: [facility]) Start: 11-07-2024 End: 11-10-2024 Telephone encounter Robe Jackson DO Work Phone: [facility]) Comment on above: CNC surgery needs sc heduled Start: 11-05-2024 End: 11-05-2024 Patient encounter procedure Robe Jackson DO Work Phone: [facility]) Comment on above: Intranasal mass; Nasal congestion; Chronic sinusitis, unspecified location; Hypertrophy of inferior nasal turbinate; Rhinitis medicamentosa Start: 11-05-2024 End: 11-05-2024 ambulatory ROBE JACKSON Facility:[facility] Start: 08-12-2024 ambulatory Julita Sheikh ty:[facility] Start: 06-26-2024 End: 06-26-2024 ambulatory Julita Reyes Facility:[facility] Start: 06-26-2024 End: 06-26-2024 ambulatory Julita Reyes Facility:[facility] Start: 05-06-2024 End: 05-06-2024 ambulatory Brock Elida Facility:[facility] Start: 04-23-2024 ambulatory Kinza Matamoros y:[facility] Start: 04-08-2024 End: 04-08-2024 ambulatory Vijaya Ferullo Facility:[facility] Start: 04-08-2024 End: 04-08-2024 ambulatory Gumaro Gonzales Facility:[facility] Start: 02-15-2024 End: 02-15-2024 ambulatory Vijaya Ferullo Facility:[facility] Start: 02-01-2024 End: 02-01-2024 ambulatory Vijaya Ferullo Facility:[facility] Start: 01-08-2024 End: 2024 ambulatory [facility] Facility:[facility] Start: 12-20-[address] Morena Reyes MD Work Phone: [facility] Start: 12-20-[address] Julita Reyes MD Work Phone: [facility] Start: 08-29-2023 End: 08-29-2023 ambulatory [facility] Work Phone: Start: 08-29-2023 End: 08-29-2023 Patient encounter procedure [facility] Work Phone: Start: 08-06-2023 End: 08-06-2023 ambulatory [facility] Ambulatory Start: 08-06-2023 End: 08-06-2023 Encounter for general adult medical examination without abnormal findings [facility] Ambulatory Start: 08-06-2023 End: 08-06-2023 Office outpatient visit 25 minutes Kinza Abreu MD Work Phone: [facility] Comment on above: Encounter for screen ing for malignant neoplasm of prostate (Primary Dx); Healthcare maintenance; Hypogonadism in male; Mild persistent asthma without complication; Hypotestosteronemia Start: 08-06-2023 End: 08-06-2023 Patient encounter status Kinza Abreu MD Work Phone: [facility] Work Phone: Start: 03-06-2023 End: 03-07-2023 ambulatory HELADIO DARLING [facility] Start: 11-07-2022 AUDIT Sunshine Solano Work Phone: [facility] [address] Work Phone: Start: 10-26-2022 End: 10-26-2022 ambulatory SUNSHINE [facility] Ambulatory Start: 10-26-2022 End: 10-26-2022 Office outpatient visit 15 minutes Sunshine Solano HOST/HOSTESS 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 Work Phone: [facility] Comment on above: Epigastric abdominal pain (Primary Dx) Start: 10-20-2022 End: 10-20-2022 [address] Mrs[address] 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; Allergy status to penicillin Start: 10-16-2022 End: 10-16-2022 Emergency department patient visit [facility] Start: 10-05-2022 End: 10-06-2022 ambulatory SUNSHINE Chiang [facility] Start: 09-11-2022 End: 09-11-2022 ambulatory [facility] Ambulatory Start: 09-11-2022 End: 09-11-2022 Office outpatient visit 25 minutes Sunshine Solano HOST/HOSTESS 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 Work Phone: [facility] Comment on above: Epigastric abdominal pain (Primary Dx); History of esophageal spasm; Encounter for screening for malignant neoplasm of colon Start: 08-02-2022 End: 08-03-2022 ambulatory SUNSHINE [facility] Start: 08-02-2022 End: 08-02-2022 Office outpatient new 45 minutes Sunshine Chiang Russ HOST/HOSTESS 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 Work Phone: [facility] Comment on above: Peyronie disease (Pr imary Dx); Hypotestosteronemia; Hypogonadism in male; Family history of lupus erythematosus; Screening cholesterol level Procedures Date Procedure Procedure Detail Performing Clinician Start: 12-29-2024 Prostate specific an tigen measurement Dr. Julita Reyes MD Work Phone: Comment on above: This test was perfor med using the [employer] tPSA method. Measured values of a patient sample can vary depending on the testing procedure used. PSA values determined on patient samples by different testing procedures cannot be used interchangeably. If there is a change in PSA assays while monitoring therapy, sequential testing should be performed to confirm baseline values. Start: 10-26-2022 Follow-up visit Follow-up SUNSHINE SOLANO Start: 10-20-2022 Colonoscopy stoma dx including collj spec spx Sunshine Solano HOST/HOSTESS 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 Work Phone: Start: 10-20-2022 End: 10-20-2022 Colonoscopy Sunshine Андрей Russ Work Phone: Start: 10-20-2022 Esophagoscopy flexib le transoral diagnostic Sunshine Solano HOST/HOSTESS 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 Work Phone: Start: 10-20-2022 SURGICAL PATHOLOGY RESULTS Kiki Chase Tiana DO Work Phone: Start: 10-16-2022 Plain X-ray of tibia and fibula Start: 10-16-2022 X-ray of both feet Start: 10-05-2022 ALPHA-FETOPROTEIN SUNSHINE RUSS Start: 10-05-2022 C-reactive protein TERESITA E RUSS Start: 10-05-2022 CANCER ANTIGEN 125 TERESITA E RUSS Start: 10-05-2022 Carcinoembryonic antigen cea SUNSHINE RUSS Start: 09-11-2022 ECG 12-LEAD SUNSHINE SOLANO Start: 09-11-2022 Ecg routine ecg w/le ast 12 lds w/i&r Sunshine Solano HOST/HOSTESS 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 Work Phone: Start: 08-02-2022 TRAVIS WITHOUT REFLEX GABBIE SUNSHINE SOLANO Start: 08-02-2022 CBC panel - Blood by Automated count SUNSHINE SOLANO Start: 08-02-2022 Comprehensive metabo lic 2000 panel - Serum or Plasma SUNSHINE SOLANO Start: 08-02-2022 Lipid panel SUNSHINE SOLANO Start: 08-02-2022 PROSTATE SPECIFIC ANTIGEN SUNSHINE SOLANO Start: 08-02-2022 Lipid 1996 panel - S kem or Plasma Sunshine Solano HOST/HOSTESS 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 Work Phone: Plan of Treatment Date Care Activity Detail Author Start: 01-14-2035 RSV Vaccine (1 - 1-dose 75+ series) RSV Vaccine (1 - 1-dose 75+ series) [facility] Start: 10-20-2032 Screening for malignant neoplasm of colon [facility] Start: 10-16-2032 DTaP/Tdap/Td Vaccines (2 - Td or Tdap) DTaP/Tdap/Td Vaccines (2 - Td or Tdap) [facility] Start: 08-03-2027 Lipid panel [facility] Start: 03-06-2026 Diabetes Screening Diabetes Screening [facility] Start: 01-12-2025 Influenza vaccination Influenza Vaccine (Season Ended) [facility] Start: 02-07-2024 End: 02-07-2024 Patient encounter procedure 02/07/2024 9:20 AM EDT Office Visit [facility] [address] [facility] [address] [place] [id number] Kinza Abreu MD [address] [facility], [address] [place] [address] [facility] Start: 01-13-2024 Covid-19 Vaccine ( season) Covid-19 Vaccine ( season) [facility] Start: 10-21-2023 Screening for malignant neoplasm of colon [facility] Start: 08-06-2023 End: 08-05-2024 CBC panel - Blood by Automated count CBC Lab Routine Hypogonadism in male Expected: 08/06/2023 (Approximate), Expires: 08/05/2024 [facility] Work Phone: Comment on above: Expected: 08/06/2023 (Approximate), Expi res: 08/05/2024 Start: 08-06-2023 End: 08-05-2024 Comprehensive metabolic 2000 panel - Serum or Plasma Comprehensive Metabolic Panel Lab Routine Hypogonadism in male Expected: 08/06/2023 (Approximate), Expires: 08/05/2024 [facility] Work Phone: Comment on above: Expected: 08/06/2023 (Approximate), Expi res: 08/05/2024 Start: 08-06-2023 End: 08-05-2024 Lipid 1996 panel - Serum or Plasma Lipid Panel Lab Routine Hypogonadism in male Expected: 08/06/2023 (Approximate), Expires: 08/05/2024 [facility] Work Phone: Comment on above: Expected: 08/06/2023 (Approximate), Expi res: 08/05/2024 Start: 08-06-2023 End: 08-05-2024 Prostate specific Ag [Mass/volume] in Serum or Plasma Prostate Specific Antigen, Screen Lab Routine Encounter for screening for malignant neoplasm of prostate Healthcare maintenance Expected: 08/06/2023 (Approximate), Expires: 08/05/2024 [facility] Work Phone: Comment on above: Expected: 08/06/2023 (Approximate), Expi res: 08/05/2024 Start: 08-06-2023 End: 08-05-2024 Testosterone [Mass/volume] in Serum or Plasma Testosterone Lab Routine Hypogonadism in male Hypotestosteronemia Expected: 08/06/2023 (Approximate), Expires: 08/05/2024 [facility] Work Phone: Comment on above: Expected: 08/06/2023 (Approximate), Expi res: 08/05/2024 Start: 08-06-2023 End: 08-06-2023 Patient encounter procedure 08/06/2023 8:45 AM EDT Office Visit [facility] [address] [place] [id number] Russ, Sunshine L, HOST/HOSTESS 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 [address] [facility], [address] [place] [address] [facility] Start: 01-12-2023 Influenza vaccination [facility] Start: 09-11-2022 End: 03-14-2024 Colonoscopy Colonoscopy Endoscopy Routine Encounter for screening for malignant neoplasm of colon Expected: 09/11/2022, Expires: 03/14/2024 [facility] Service [facility] Work Phone: Comment on above: Expected: 09/11/2022, Expires: Start: 09-11-2022 End: 03-14-2024 Esophagogastroduodenoscopy EGD Endoscopy Routine Epigastric abdominal pain History of esophageal spasm Expected: 09/11/2022 (Approximate), Expires: 03/14/2024 [facility] Work Phone: Comment on above: Expected: 09/11/2022 (Approximate), Expi res: 03/14/2024 Start: 08-02-2022 End: 08-03-2023 CBC panel - Blood by Automated count CBC Lab Routine Hypogonadism in male Expected: 08/02/2022 (Approximate), Expires: 08/03/2023 [facility] Work Phone: Comment on above: Expected: 08/02/2022 (Approximate), Expi res: 08/03/2023 Start: 08-02-2022 End: 08-03-2023 Comprehensive metabolic 2000 panel - Serum or Plasma Comprehensive Metabolic Panel Lab Routine Hypotestosteronemia Expected: 08/02/2022 (Approximate), Expires: 08/03/2023 [facility] Work Phone: Comment on above: Expected: 08/02/2022 (Approximate), Expi res: 08/03/2023 Start: 08-02-2022 End: 08-03-2023 Lipid 1996 panel - Serum or Plasma Lipid Panel Lab Routine Screening cholesterol level Expected: 08/02/2022 (Approximate), Expires: 08/03/2023 [facility] Work Phone: Comment on above: Expected: 08/02/2022 (Approximate), Expi res: 08/03/2023 Start: 08-02-2022 End: 08-03-2023 Nuclear Ab [Presence] in Serum by Hep2 substrate TRAVIS Lab Routine Family history of lupus erythematosus Expected: 08/02/2022 (Approximate), Expires: 08/03/2023 [facility] Service Area Work Phone: Comment on above: Expected: 08/02/2022 (Approximate), Expi res: 08/03/2023 Start: 08-02-2022 End: 08-03-2023 Prostate specific Ag [Mass/volume] in Serum or Plasma PSA Lab Routine Hypogonadism in male Expected: 08/02/2022 (Approximate), Expires: 08/03/2023 [facility] Work Phone: Comment on above: Expected: 08/02/2022 (Approximate), Expi res: 08/03/2023 Start: 01-12-2022 Influenza vaccination Influenza Vaccine (#1) [facility] Start: 01-14-2010 Pneumococcal Vaccine: 50+ (1 of 1 - PCV) Pneumococcal Vaccine: 50+ (1 of 1 - PCV) [facility] Start: 01-14-2010 Shingrix Vaccine (1 of 2) Shingrix Vaccine (1 of 2) [facility] Start: 01-14-2010 Zoster Vaccines (1 of 2) Zoster Vaccines (1 of 2) [facility] Start: 01-14-2005 Prostate specific antigen measurement Prostate Cancer Screening Discussion [facility] Start: 01-14-2005 Screening for malignant neoplasm of colon [facility] Start: 01-14-1982 DTaP/Tdap/Td Vaccines (1 - Tdap) DTaP/Tdap/Td Vaccines (1 - Tdap) [facility] Start: 01-14-1979 Urine microalbumin profile DTaP,Tdap,Td Vaccine (1 - Tdap) [facility] Start: 01-14-1978 Anxiety Screening Anxiety Screening [facility] Start: 01-14-1978 COVID-19 Vaccine (#1) COVID-19 Vaccine (#1) [facility] Start: 01-14-1978 Depression Screening Depression Screening [facility] Start: 01-14-1978 Diabetes mellitus screening Diabetes Screening [facility] Start: 01-14-1978 Hepatitis C screening Hepatitis C Screening [facility] Start: 01-14-1978 HIV screening HIV Screening [facility] Start: 01-14-1961 MMR Vaccines (1 of 1 - Standard series) MMR Vaccines (1 of 1 - Standard series) [facility] Start: 1960 COVID-19 Vaccine (#1) COVID-19 Vaccine (#1) [facility] Start: 1960 HIV screening HIV Screening [facility] Start: 1960 Lipid panel Lipid Panel [facility] Start: 1960 Screening for malignant neoplasm of colon [facility] Start: 1960 Yearly Adult Physical Yearly Adult Physical [facility] CBC W Auto Different ial panel - Blood [facility] Comprehensive metabo lic 2000 panel - Serum or Plasma [facility] Lipid 1996 panel - S kem or Plasma [facility] Patient Education Bruises (Contu sions) ED Abrasion ED Foot Sprain [facility] Work Phone: Patient referral [facility] Work Phone: Prostate specific an tigen measurement [facility] Thyroid stimulating hormone measurement [facility] Immunizations Immunization Date Immunization Notes Care Provider Fa ammy 10-16-2022 tetanus toxoid, redu luis alberto diphtheria toxoid, and acellular pertussis vaccine, adsorbed [facility] Payers Date Payer Category Payer Self-pay 2022 Private Health Insurance [id number] 2022 Unknown [id number] 1960 Unknown [id number] 2.16.840.1.061521.3.579. 2.1244 1960 Unknown [id number] 2.16.840.1.764322.3.579. 2.124 1960 Unknown [id number] 2.16.840.1.949802.3.579. 2.1069 1960 Unknown [id number] 2.840.1.582872.3.579. 2.201 1960 Unknown [id number] 2.840.1.693978.3.579. 2.1244 1960 Unknown [id number] 2.840.1.560498.3.579. 2.124 1960 Unknown [id number] 2.840.1.832497.3.579. 2.124 1960 Unknown [id number] 2.840.1.756546.3.579. 2.124 1960 Unknown [id number] 2.840.1.694884.3.579. 2.627 Unknown [facility] Unknown [id number] 2.840.1.202998.3.579. 2.462 Unknown [id number] 2.840.1.705130.3.579. 2.462 Unknown [id number] 2.840.1.090436.3.579. 2.462 Unknown [id number] 2.840.1.465427.3.579. 2.462 Unknown [id number] 2.840.1.848170.3.579. 2.462 Unknown [id number] 2.840.1.711203.3.579. 2.462 Unknown [id number] 2.16840.1.271509.3.579. 2.462 Unknown [id number] 2.840.1.020799.3.579. 2.462 Unknown [id number] 2.840.1.600148.3.579. 2.462 Unknown [id number] 2.840.1.350718.3.579. 2.462 Unknown [id number] 2.840.1.031551.3.579. 2.462 Unknown [id number] 2.840.1.542500.3.579. 2.462 Social History Date Type Detail Facility Start: 08-02-2022 End: 04-08-2024 Tobacco smoking status NHIS Never smoked tobacco [facility] Work Phone: Start: 08-02-2022 End: 11-05-2024 Tobacco use and exposure Smokeless tobacco non-user [facility] Work Phone: Start: 08-02-2022 Alcohol intake Lifetime non-d junior (finding) [facility] Work Phone: Start: 08-02-2022 End: 11-05-2024 History of Social function [facility] Work Phone: Start: 08-02-2022 End: 11-05-2024 Tobacco use panel [facility] Work Phone: Start: 1960 Sex Assigned At Not on file [facility] Work Phone: Start: 07-23-2022 End: 08-06-2023 Exposure to SARS-CoV-2 (event) Not sure [facility] Start: 10-16-2022 [facility] Start: 1960 Sex Assigned At Male [facility] [place] Start: 10-26-2022 End: 08-06-2023 Alcohol intake Current drinker of alcohol (finding) [facility] Work Phone: Start: 11-05-2024 [facility] End: 05-14-1979 History of tobacco use Current smoker [facility] End: 05-14-1979 History of tobacco use Cigarette Smoker [facility] National Score (1-100), lower number is lower risk 60 [facility] Medical Equipment Procedure Code Equipment Code Equipment Origin al Text Equipment Identifier Dates Syringe With Nee dle (Carepoint Luer Lock Syr-Needle) 3 mL 23 gauge x 1 1/2 syringe Start: 12-24-2023 Syringe With Nee dle (Carepoint Luer Lock Syr-Needle) 3 mL 23 gauge x 1 1/2 syringe Start: 12-24-2023 End: 12-24-2023 Syringe With Nee dle (Carepoint Luer Lock Syr-Needle) 3 mL 23 gauge x 1 1/2 syringe Start: 12-26-2024 Syringe With Nee dle (Carepoint Luer Lock Syr-Needle) 3 mL 23 gauge x 1 1/2 syringe Start: 12-24-2023 End: 12-24-2023 Syringe With Nee dle (Carepoint Luer Lock Syr-Needle) 3 mL 23 gauge x 1 1/2 syringe Start: 12-24-2023 End: 12-26-2024 Clinical Notes 08-02-2022 to 12-26-2024 Note Date & Type Note Facility 12-26-2024 Evaluation note Diagnosis Onset Date Resolution Annual physical exam acute 2024 1:58pm BPH (benign prostatic hyperplasia) chronic December 26 1:58pm GERD (gastroesophageal reflux disease) chronic December 26 1:58pm Hypogonadism in male chronic 2024 1:58pm Nasal polyp chronic December 26, 2024 1:58pm [facility] Work Phone: 1(598) 269-309406-30-2025 Telephone encounter Note* Telephone Encounter - Lucius Jimenez - 11/10/2024 3:00 PM EDT November 10, 2024 3:00 PM Patient not happy with first available surgery date so he said he will try another provider Lucius Jimenez [facility]06-30-2025 Miscellaneous Notes* Telephone Encounter - Lucius Jimenez - 11/10/2024 3:00 PM EDT November 10, 2024 3:00 PM Patient not happy with first available surgery date so he said he will try another provider Lucius Jimenez * Telephone Encounter - Lucius Jimenez - 11/07/2024 3:24 PM EDT November 07, 2024 3:24 PM Patient called to ask if I had any idea when his surgery could be scheduled He wants sooner than later.... Please advise Lucius Jimenez [facility] Telephone encounter Note * Telephone Encounter - Lucius Jimenez - 11/07/2024 3:24 PM EDT November 07, 2024 3:24 PM Patient called to ask if I had any idea when his surgery could be scheduled He wants sooner than later.... Please advise Lucius Jimenez [facility]06-25-2025 NoteHNO ID: [id number] Author: ROBE JACKSON, DO Service: ? Author [...] once daily. magnesium oxide-magnesium amino acid chelate (EC-QTLE-OCUFJUK) 133 mg tablet Take 133 mg by [...] to palpation without evidence of duct abnormality. Submandibular/Lehigh's-without evidence of palpable abnormality and no visible [...] and ethmoid sinuses appear (more content not included)...[facility]06-25-2025 History of Present illness Narrative* Robe Jackson DO - 11/05/2024 9:19 AM EDT HPI: Joi is a 64 year old [...] cavity, prior ENT thought it was a polyp.He is struggling with breathing through his nose at night. He is using Afrin before bed but doesn'tthink his symptoms are related to rhinitis medicamentosa. [...] once daily. magnesium oxide-magnesium amino acid chelate (MK-MAQS-JBVNAAO) 133 mg tablet Take 133 mg by [...] to palpation without evidence of duct abnormality. Submandibular/Lehigh's-without evidence of palpable abnormality and no visible duct lesions. Ears: External ears appear normally formed. Tympanic membranes intact bilaterally. Nose: External nose is grossly normal. Septum midline. There is a thin layer of diffuse papillomatous appearing lesions along inner aspect of left nostril and extending onto nasal septum. Oral Cavity/Oropharynx: The mucous membranes of the pharynx, lips and tongue appear grossly normal.Dentition is unremarkable. Palate and floor of mouth [...] nasal cavity. After an adequate time had elapsed,a rigid endoscope was used. Septum midline. Bilateral [...] documentation. Robe Jackson DO [facility] History of Present illness Narrative* Angeles Rivera MA - 08/06/2023 8:40 AM EDT Patient is here today for 1 year visit: diabetes, GERD and hypogonadism. Questions and concerns with asthma and insomnia * Kinza Abreu MD - 08/06/2023 8:40 AM EDT Subjective Patient ID: Joi Madrigal Jr. is a 63 y.o. male who presents for GERD, Pre- diabetes, and Hypogonadism (08/02/22 PSA 1.15). 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 - Testosterone; Future [facility] in [facility] Work Phone: 1([phone]) 307-123710-25-2023 NoteEncounter Department: [address] SURG Discharge Summary by Eric Zamudio PA-C at 03/07/2023 10:12 AM Author: SESAR PickardCService: UrologyAuthor Type: Physician Intranet Support Filed: 03/07/2023 10:38 AMDate of Service: 03/07/2023 10:12 AMStatus: Signed Routeman: Eric Zamudio PA-C (Physician Intranet Support) Related Notes: Original Note by Eric Zamudio PA-C (Physician Intranet Support) filed at 03/07/2023 10:27 AM Cosigner: Dhaval Page DO at 03/07/2023 10:58 AM [facility] [place] [address] Discharge Summary SOIN 0 1 2 Patient ID: Joi Madrigal [id number] 63 y.o. 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 Electronically signed by; Eric Zamudio PA-C 03/07/2023[facility]10-24-2023 NoteEncounter Department: [address] SUR[address] Progress Notes by Owen Justin RN at 03/06/2023 6:14 PM Author: Owen Justin, RNService: -Author Type: Registered Nurse Filed: 03/06/2023 6:15 PMDate of Service: 03/06/2023 6:14 PMStatus: Signed Routeman: Owen Justin RN (Registered Nurse) 4 Eyes [...] of 2nd RN performing assessment: Angeles Carrion [facility]NTri[facility] NoteEncounter Department: [facility] Progress Notes by Celsa Gonzalez RN at 03/06/2023 4:33 PM Author: SCOTT Sandhuervice: -Author Type: Registered Nurse Filed: 03/06/2023 4:35 PMDate of Service: 03/06/2023 4:33 PMStatus: Signed Routeman: Celsa Gonzalez RN (Registered Nurse) BP 140/150's/90-104. HR- 70-80's, reported to Estelle FREITAS. Pre-op BP 147/89. May send pt. To floor.[facility]10-24-2023 NoteEncounter Department: [facility] SUR[facility] Progress Notes by Celsa Gonzalez RN at 03/06/2023 4:08 PM Author: SCOTT Sandhuervice: -Author Type: Registered Nurse Filed: 03/06/2023 4:12 PMDate of Service: 03/06/2023 4:08 PMStatus: Signed Routeman: Celsa Gonzalez RN (Registered Nurse) Report given to SYLVIA Shin. Alert AND orientated x4. Rates pain 8/10, tolerable as per pt. VSS. Scrotal dressing intact w/scrotal supportAND ice pack. Tolerating fluids well. Patient belongings: [employer] bag w/phone present @ bedside.[facility]10-24-2023 NoteEncounter Department: [facility] Progress Notes by Celsa Gonzalez RN at 03/06/2023 3:34 PM Author: Celsa Gonzalez RNService: -Author Type: Registered Nurse Filed: 03/06/2023 3:35 PMDate of Service: 03/06/2023 3:34 PMStatus: Signed Routeman: Celsa Gonzalez RN (Registered Nurse) Patient continues to rate pain 01/21 with little relief. 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 Will place order's for analgesia.[facility]10-24-2023 NoteEncounter Department: [facility] SUR[facility]ERY HANDP by Dhaval Page DO at 03/06/2023 12:00 PM Author: Holden Liangrvice: UrologyAuthor Type: Physician Filed: 03/06/2023 12:04 PMDate of Service: 03/06/2023 12:00 PMStatus: Signed Routeman: Dhaval Page DO (Physician) UROLOGY HISTORY AND PHYSICAL Name: Joi Madrigal Date/Time of Admission: 03/06/2023 10:25 AM CSN: [id number] Attending Provider: Dhaval Page DO Room/Bed: IR [...] or sob. No cane or walker. 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 [...] Yes Historical Provider, omeprazole (PRILOSEC) 40 mg delayed- release capsule Take 1 capsule (40 mg total) [...] No results found for: PH, PO2, PCO2, UXS3FYV No results for input(s): INR in the last 168 hours. No results for input(s): PTT in the last 168 hours.Last Liver Function Results: No results for input(s): ALT, AST, BILIDIR, ALKPHOS in the last 168 hours. In (more content not included)...[facility]10-24-2023 NoteEncounter Department: [facility] Progress Notes by Beverly Pearce RN at 03/06/2023 11:09 AM Author: SCOTT Zhouervice: -Author Type: Registered Nurse Filed: 03/06/2023 11:10 AMDate of Service: 03/06/2023 11:09 AMStatus: Signed Routeman: Beverly Pearce RN (Registered Nurse) Pre-op assessment [...] Bilateral Nasal Swabs: n/a Skin Prep Completed: n/[facility]06-15-2023 History of Present illness Narrative* Sunshine Solano, HOST/HOSTESS 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 - 10/26/2022 10:30 AM EDT Subjective Patient ID: Joi Madrigal Jr. is [...] Follow up as needed documented in this [facility] Work Phone: [phone]) 764-881906-09-2023 NotePatient Name: Joi Madrigal Procedure Date: 10/20/2022 11:21 AM Date of : 1960 Admit Type: Outpatient Site: [facility] 1 Ethnicity: Not or Race: White Attending MD: Kiki Montiel DO, [id number] Procedure: Upper GI endoscopy Indications: Heartburn Providers: [...] discussed with the patien (more content not included)...PROVATION - [id number] NotePatient Name: Joi Madrigal Procedure Date: 10/20/2022 11:49 AM Date of : 1960 Admit Type: Outpatient Site: [facility] 1 Ethnicity: Not or Race: White Attending MD: Kiki Montiel DO, [id number] Procedure: Colonoscopy Indications: Screening for colorectal malignant neoplasm Providers: Kiki Montiel DO (Doctor), Jocelyn Seay, RN (Nurse), Angeles Joyce RN (Nurse) Referring: Sunshine [place] Russ Medicines: Midazolam 6 mg IV, Meperidine 50 [...] - Continue present medications. (more content not included)...PROVATION - [id number] History of Present illness Narrative* Sunshine Solano, HOST/HOSTESS 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 - 09/11/2022 4:00 PM EDT Subjective Patient ID: Joi Madrigal Jr. is [...] colon - Colonoscopy; Future documented in this encounterC[facility] Work Phone: 1(191) 892-218103-22-2023 History of Present illness Narrative* ANTONIETTA Murphy - 08/02/2022 8:45 AM EDT Subjective Patient ID: Joi Madrigal Jr. is a 62 y.o. male who presents for Annual Exam (GUEST SERVICES LEAD - establishing care). 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 [place] to [facility] H/O traumatic peyronie's disease, has seen [...] - Lipid Panel; Future documented [facility] this [facility] Work Phone: 1([phone]) 238-353803-22-2023 Instructions* Patient Instructions* ANTONIETTA Murphy - 08/02/2022 8:45 AM EDT Follow heart healthy diet Follow up in 1 year or as needed documented in this encounterC[facility] Work Phone: Evaluation note* Diagnosis Epigastric abdominal pain- Primary Abdominal pain, epigastric History of esophageal spasm Encounter for screening for malignant neoplasm of colon documented in this encounter [facility] Work Phone: Evaluation noteNo assessment information available [facility] Work Phone: Evaluation note* Diagnosis Epigastric abdominal pain- Primary Abdominal pain, epigastric documented in this encounter [facility] Work Phone: Evaluation note* Diagnosis Encounter for screening for malignant neoplasm of colon Gastro-esophageal reflux disease without esophagitis Gastro-esophageal reflux disease with esophagitis, without bleeding assisted (current) use of oral hypoglycemic drugs Allergy status to penicillin documented in this encounter [facility] Work Phone: Evaluation note* Diagnosis Encounter for screening for malignant neoplasm of prostate- Primary Healthcare maintenance Hypogonadism in male Mild persistent asthma without complication Hypotestosteronemia documented in this encounter [facility] Work Phone: Evaluation note* Diagnosis Peyronie disease- Primary Peyronie's disease Hypotestosteronemia Hypogonadism in male Family history of lupus erythematosus Family history of other condition Screening cholesterol level Screening for lipoid disorders documented in this encounter [facility] Work Phone: Evaluation note* Diagnosis Intranasal mass Swelling, mass, or lump in head and neck Nasal congestion Other diseases of nasal cavity and sinuses Chronic sinusitis, unspecified location Hypertrophy of inferior nasal turbinate Hypertrophy of nasal turbinates Rhinitis medicamentosa Chronic rhinitis [facility] Diagnosis Onset Date Resolution Status Admit Date Annual physical exam acute 2024 1:58pm [facility] Work Phone: Reason for referral (narrative)* Consultation (Routine) - Pending Review Specialty Diagnoses / Procedures Referred By Arsh dsouza Referred To Contact Urology Diagnoses Peyronie disease Hypotestosteronemia Hypogonadism in male Procedures NM OFFICE/OUTPATIENT NEW HIGH MDM 60-74 MINUTES Sunshine Solano APRN-CNP [address] [facility], [facility] [address] [id number] Referral ID Status Reason Start Date Expiration Date Visits Requested Visits Authorized [id number] Pending Review Specialty Services Required 08/02/2022 01/29/2023 1 1 T [facility] Work Phone: Reason for referral (narrative)No reason for referral information availableCam[facility]illo [facility] Work Phone: Reason for Referral Specialty Diagnoses / Procedures Referred By Contac t Referred To Contact Gastroenterology Diagnoses Epigastric abdominal pain History of esophageal spasm Procedures EGD Sunshine Solano APRN-CNP [address] [facility], [place] [phone] Referral ID Status Reason Start Date Expiration Date V isits Requested Visits Authorized [id number] Authorized 09/11/2022 03/10/2023 1 1 Specialty Diagnoses / Procedures Referred By Contac t Referred To Contact Gastroenterology Diagnoses Encounter for screening for malignant neoplasm of colon Procedures Colonoscopy Sunshine Solano APRN-CNP [address] [facility], [place] [phone] Referral ID Status Reason Start Date Expiration Date V isits Requested Visits Authorized [id number] Authorized 09/11/2022 03/10/2023 1 1 Specialty Diagnoses / Procedures Referred By Contac t Referred To Contact Diagnoses Epigastric abdominal pain Procedures ECG 12 lead (Clinic Performed) Sunshine Solano APRN-CNP [address] [facility], [facility] [address] [phone] Referral ID Status Reason Start Date Expiration Date V isits Requested Visits Authorized [id number] Authorized 09/11/2022 03/10/2023 1 1 Chief Complaint and Reason for Visit Chief Complaint FALL Chief Complaint Admit Date 6 M FU December 26, 2024 1: 58pm Reason for Visit Admit Date Annual physical exam December 26, 2024 1 :58pm Chief Complaint Admit Date 6 M FU December 26, 2024 1: 58pm INT LABS December 29, 2024 8: 03am Reason for Visit Admit Date Annual physical exam December 26, 2024 1 :58pm BPH (benign prostatic hyperplasia) Augus t 2024 1:58pm GERD (gastroesophageal reflux disease) A ugust 2024 1:58pm Hypogonadism in male December 26, 2024 1 :58pm Nasal polyp December 26, 2024 1: 58pm Advance Directives No Advanced Directives Records Found Advance Directive Response Recorded Date/ Time Living Will No October 16, 2022 2 :26pm Power of Applier No October 16, 2022 2:26pm Summary Purpose [...] months Specialty Diagnoses / Procedures Referred By Arsh dsouza Referred To Contact Diagnoses Epigastric abdominal pain Procedures ECG 12 lead (Clinic Performed) Sunshine Solano HOST/HOSTESS RESTAURANT-SHIMON [address] [facility], [place] [address] Referral ID Status Reason Start Date Expiration Date V isits Requested Visits Authorized [id number] Authorized 09/11/2022 03/10/2023 1 1 Reason Comments Follow-up 2 week FUV. Reason Comments Other Encounter for screen ing for malignant neoplasm of colon, Gastro-esophageal reflux disease without esophagitis Reason Comments Hypogonadism 08/02/22 PSA 1.15 Annual Exam Est Care Reason Comments Annual Exam GUEST SERVICES LEAD - establishing ca re Reason Comments Sinus Problem States he has chroni c sinus issues, states he would like to discuss his options Reason Comments CNC surgery needs scheduled Care Teams (unrecognized sec tion and content) Fire Control Technician B Relationship Specialty Start Date End Date Sunshine Solano HOST/HOSTESS 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 [address] [facility], [address] [place] [address] PCP - General Family Medicine 08/01/22 Team Status: Active Member Role Status Dates SUNSHINE SOLANO Primary Care Provider Active Team Status: Inactive Member Role Status Dates Dr. Marisa Villanueva , Emergency Provider Active RUSS GONSALEZ Primary Care Provider Active Fire Control Technician B Relationship Specialty Start Date End Date Sunshine Solano, HOST/HOSTESS 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 [address] [facility], [address] [place] [address] PCP - General Family Medicine 08/01/22 Fire Control Technician B Relationship Specialty Start Date End Date Sunshine Solano HOST/HOSTESS 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 [address] [facility], [address] [place] [address] PCP - General Family Medicine 08/01/22 Fire Control Technician B Relationship Specialty Start Date End Date Kinza Abreu MD [address] [facility], [address] [place] [address] PCP - General Family Medicine 07/23/23 Team Status: Active Member Role Status Dates Dr. Kinza Abreu MD Primary Care Provider Active Team Status: Inactive Member Role Status Dates Dr. Kinza Abreu MD Primary Care Prov ider, Attending Provider, Referring Provider Active Fire Control Technician B Relationship Specialty Start Date End Date Sunshine Solano, HOST/HOSTESS 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 [address] [facility], [address] [place] [address] PCP - General Family Medicine 08/01/22 Fire Control Technician B Relationship Specialty Start Date End Date Julita Reyes MD [address] [place] [phone] PCP - General Internal Medicine 11/05/24 Fire Control Technician B Relationship Specialty Start Date End Date Julita Reyes MD [address] [facility] [address] [place] [phone] PCP - General Internal Medicine 11/05/24 Fire Control Technician B Relationship Specialty Start Date End Date Julita Reyes MD [address] [facility] [address] [place] [phone] PCP - General Internal Medicine 11/05/24 Team Status: Active Member Role/Relationship Status Dates Dr. Julita Reyes MD Primary Care Provider Active Team Status: Inactive Member Role/Relationship Status Dates JANINE Moran Attending Provider Active St art: December 26, 2024 End: December 26, 2024 Dr. Julita Reyes MD Primary Care Provider Active Start: December 26, 2024 End: December 26, 2024 Dr. Julita Reyes MD Referring Provider Active Start: December 26, 2024 End: December 26, 2024 Team Status: Inactive Member Role/Relationship Status Dates Dr. Julita Reyes MD Primary Care Provider Active Start: December 29, 2024 End: December 29, 2024 JANINE Moran Attending Provider Active St art: December 29, 2024 End: December 29, 2024 JANINE Moran Referring Provider Active St art: December 29, 2024 End: December 29, 2024 Goals (unrecognized section and content) Goals [...] section and content) DATE CREATED AUTHOR 10/23/2022 [facility] DATE CREATED AUTHOR AUTHOR'S ORGANIZ ATION 11/08/2022 [facility] DATE CREATED AUTHOR AUTHOR'S ORGANIZ ATION 11/09/2022 [facility] DATE CREATED AUTHOR AUTHOR'S ORGANIZ ATION 04/03/2023 [facility] DATE CREATED AUTHOR AUTHOR'S ORGANIZ ATION 08/31/2023 [facility] DATE CREATED AUTHOR AUTHOR'S ORGANIZ ATION 11/11/2024 [facility] DATE CREATED AUTHOR AUTHOR'S ORGANIZ ATION 01/03/2025 [facility] DATE CREATED AUTHOR AUTHOR'S ORGANIZ ATION 01/22/2025 [facility] Source Comments (unrecognize d section and content) In the event this informatio n is protected by the Federal Confidentiality of Alcohol and Drug Abuse Patient Records regulations: The Federal rules restrict any use of the information to criminally investigate or prosecute any alcohol or drug abuse patient.[facility] the event this information is protected by the Federal Confidentiality of Alcohol and Drug Abuse Patient Records regulations: The Federal rules restrict any use of the information to criminally investigate or prosecute any alcohol or drug abuse patient.[facility] the event this information is protected by the Federal Confidentiality of Alcohol and Drug Abuse Patient Records regulations: The Federal rules restrict any use of the information to criminally investigate or prosecute any alcohol or drug abuse patient.[facility] FOR RECORDS PERTAINING TO PATIENTS WHO ARE [...] BE BASED ON THE PRIMARY CLINICAL RECORDS. [facility]. provides no warranty or guarantee of the accuracy or completeness of information in this document.
== END | disposition home or self-care (01) ==
PROVIDERS: PCP Internal Medicine; Referring Provider Ophthalmology; Visit Provider Ophthalmology
DX: H04.123 Dry eye syndrome of bilateral lacrimal glands (principal)